=== PATIENT | female | born 1965 | race African-American/Black ===

== ENCOUNTER 2017-10-21 15:27 | Emergency (ER) | payer MEDICAID ==
[~2017-10-21] VITALS: Ht 160 cm; Wt 45.4 kg
--- NOTE | 2017-10-21 15:48 | Emergency Room Report ---
History of Present Illness General Chief Complaint: General Complaint Source: Patient Present Illness HPI 51-year-old female patient presents ER complaining of boil on right inguinal region. Patient reports as well as been there for a couple of weeks. Patient reports that she is a history of boils, reports last boil was in the same area one year ago. Reports was treated with I and D and antibiotics at that time. Patient reports that she called her physician and was told to come to the ER. Patient reports that she has not received any treatment for this point. Patient denies fever, chest pain, shortness of breath. Patient reports pain with ambulation because in crease between leg and pelvic region. Patient denies dysuria, hematuria. She denies vaginal discharge. Allergies: Coded Allergies: No Known Allergies (Unverified , 10/21/17) Patient History Past Medical History: see triage record Reviewed Nursing Documentation: PMH: Agreed; PSxH: Agreed Nursing Documentation-PMH Past Medical History: No History, Except For Hx Cardiac Problems: No Hx Hypertension: Yes Hx Pacemaker: No Hx Asthma: No Hx COPD: No Hx Diabetes: Yes - Type II Hx Cancer: No Hx Gastrointestinal Problems: No History Of Psychiatric Problem: No Hx Neurological Problems: No Hx Cerebrovascular Accident: No Hx Seizures: No Review of Systems All Other Systems: negative except mentioned in HPI Physical Exam Vital Signs Date Time Temp Pulse Resp B/P (MAP) Pulse Ox O2 Delivery O2 Flow Rate FiO2 10/21/17 15:35 98.0 94 16 96/65 99 Room Air 98.1 Sp02 EP Interpretation: reviewed, normal General Appearance: well appearing, no apparent distress, alert, GCS 15, non- toxic Head: normocephalic, atraumatic Neck: full range of motion Respiratory: lungs clear, normal breath sounds, no rhonchi, no respiratory distress, no accessory muscle use, no wheezing, speaking full sentences Cardiovascular #1: regular rate, rhythm, no edema Genitourinary: ext genitalia/vag normal Musculoskeletal: back normal, digits/nails normal, gait/station normal, normal range of motion, non-tender Neurologic: alert, oriented x3, responsive, motor strength/tone normal, sensory intact Psychiatric: mood/affect normal Skin: other - 2-3 cm abscess, right inguinal region, fluctuant, TTP, no pus, no drainage, does not come to a point Procedures Incision and Drainage Incision and Drainage : Consent: Verbal Site: right inguinal region Blade Size: 11 I & D Procedure: betadine prep, sterile drapes applied, sterile dressing applied Wound Location: other - right inguinal region Wound's Depth, Shape: superficial Wound Length (cm): 1 Wound Explored: contaminated Irrigated w/ Saline (ccs): 10 Anesthesia: 1% Lidocaine Volume Anesthetic (ccs): 2 Splint Applied?: No Sling Applied?: No Patient Tolerated: Well Complications: None Medical Decision Making PA Attestation Dr. Diaz is my supervising Physician whom patient management has been discussed with. Diagnostic Impression: Primary Impression: Abscess ER Course Pt. presents to the ED c/o abscess Ddx considered but are not limited to rash, cellulitis, abscess, sebaceous cyst , carbuncle, folliculitis. Does not require imaging at this time. Vital signs: are WNL, pt. is afebrile Ordered Lidocaine and pain medication. ED INTERVENTIONS: Area of incision and field block of abscess performed with lidocaine. I&D of abscess performed. Wound explored, pus expressed. No wick placed. Sterile dressing applied to wound following procedure. Procedure was chaperoned by female nurse. Patient tolerated procedure well. Patient reports feeling better following procedure. instructed patient on care. Take Tylenol for pain symptoms. Wound check with primary care provider in 2-3 days. DISCHARGE: -Rx provided for Keflex -Rx provided for Bactrim -Rx provided for Tylenol At this time pt. is stable for d/c to home. Patient is resting comfortably, in no acute distress, nontoxic appearing. Will provide printed patient care instructions and any necessary prescriptions. Care plan and follow up instructions have been discussed with the patient prior to discharge. Patient instructed to follow-up with primary care provider in 2 - 3 days for wound recheck. Patient questions asked and answered. Patient reports understanding and agreement to treatment plan. ER precautions given. Patient instructed to return to ER immediately for any new or worsening of symptoms including but not limited to fever, worsening of pain symptoms, worsening of erythema, red streaking. - Please note that this Emergency Department Report was dictated using [employer] die repair manager technology software, occasionally this can lead to erroneous entry secondary to interpretation by the dictation equipment. Last Vital Signs Date Time Temp Pulse Resp B/P (MAP) Pulse Ox O2 Delivery O2 Flow Rate FiO2 5/5/18 15:35 98.0 94 16 96/65 99 Room Air 98.1 Disposition: HOME, SELF-CARE Condition: Stable Scripts Trimethoprim/Sulfamethoxazole 160/800* (BACTRIM DS TABLET*) 1 Each Tablet 1 TAB ORAL TWICE A DAY for 7 Days, #14 TAB Prov: Juanjo Calles 10/21/17 Cephalexin* (KEFLEX*) 500 Mg Capsule 500 MG ORAL EVERY 12 HOURS, #14 CAP 0 Refills Prov: Juanjo Calles 10/21/17 Acetaminophen* (TYLENOL EXTRA STRENGTH*) 500 Mg Tablet 500 MG ORAL Q8H PRN for Prn Headache/Temp > 101, #30 TAB 0 Refills Prov: Juanjo Calles 10/21/17 Patient Instructions: Abscess, [id number] Additional Instructions: Followup with primary care provider in 2-3 days for wound check and removal of gauze, return to ER if unable to be seen. Take medications as directed. Take full course of abx. Keep wound clean and dry. Patient questions asked and answered. ER precautions given, patient instructed to return to ER immediately for any new or worsening of symptoms including but not limited to intractable vomiting, worsening of pain or rash, red streaking, chest pain, SOB. Juanjo Calles October 21, 2017 15:48
[2017-10-21 16:20] VITALS: BP 96/65
[2017-10-21] MEDS ORDERED: Lidocaine 1% Plain 30 ml INJ ONE (16:45)
[2017-10-21] MEDS ORDERED: Ketorolac 30mg Inj IM ONE (16:45)
[2017-10-21 17:35] VITALS: BP 96/65
[2017-10-21] MEDS ORDERED: BACTRIM DS TAB1 EAC1 ORAL (17:38)
[2017-10-21] MEDS ORDERED: TYLENOL EXTRA500 MG ORAL (17:38)
[2017-10-21] MEDS ORDERED: CEPHALEXIN500 MG ORAL (17:38)
== END 2017-10-21 17:44 | disposition home or self-care (01) ==
LOC: EMR 16:00
DX: L02.214 Cutaneous abscess of groin (principal); E11.9 Type 2 diabetes mellitus without complications; I10 Essential (primary) hypertension
CPT/HCPCS: 10060; 96372; 99284; J1885; J2001

== ENCOUNTER 2017-10-23 19:16 | Emergency (ER) | payer MEDICAID ==
[~2017-10-23] VITALS: Ht 157.5 cm; Wt 39.9 kg
[~2017-10-23 19:16] MED LIST: BACTRIM DS TAB1 EAC1 ORAL; CEPHALEXIN500 MG ORAL; TYLENOL EXTRA500 MG ORAL
[2017-10-23] MEDS ORDERED: CELLCEPT500 MG ORAL (19:24)
[2017-10-23] MEDS ORDERED: PREDNISONE10 MG ORAL (19:24)
[2017-10-23] MEDS ORDERED: MAGNESIUM100 MG PO (19:24)
[2017-10-23] MEDS ORDERED: CARDIZEM60 MG ORAL (19:24)
[2017-10-23 19:38] VITALS: BP 98/71
--- NOTE | 2017-10-23 19:47 | Emergency Room Report ---
History of Present Illness General Chief Complaint: Wound Recheck/Suture Removal Source: EMS Present Illness HPI 51-year-old female presents to the ER for recheck on her abscess. Patient states that she had I&D 2 days ago that she's been taking antibiotics with improvement of symptoms. Patient states she has no for potential place at this time. Allergies: Coded Allergies: No Known Allergies (Unverified , 10/21/17) Patient History Past Medical History: see triage record Past Surgical History: none Pertinent Family History: none Now: No Reviewed Nursing Documentation: PMH: Agreed; PSxH: Agreed Nursing Documentation-PMH Hx Cardiac Problems: No Hx Hypertension: Yes Hx Pacemaker: No Hx Asthma: No Hx COPD: No Hx Diabetes: Yes - Type II Hx Cancer: No Hx Gastrointestinal Problems: No Hx Neurological Problems: No Hx Cerebrovascular Accident: No Hx Seizures: No Review of Systems All Other Systems: negative except mentioned in HPI Physical Exam Vital Signs Date Time Temp Pulse Resp B/P (MAP) Pulse Ox O2 Delivery O2 Flow Rate FiO2 10/23/17 19:18 98.0 94 14 98/71 100 Room Air 98.1 Sp02 EP Interpretation: reviewed, normal General Appearance: no apparent distress, alert, GCS 15, non-toxic Head: normocephalic, atraumatic Eyes: bilateral eye normal inspection, bilateral eye PERRL ENT: normal ENT inspection Neck: normal inspection Respiratory: chest non-tender, lungs clear, normal breath sounds, speaking full sentences Cardiovascular #1: regular rate, rhythm, no edema Neurologic: alert, oriented x3, responsive, motor strength/tone normal, sensory intact, speech normal Skin: normal color, no rash, warm/dry, well hydrated, other - well healing abscess. minimal induration. No drainage Lymphatic: no adenopathy Medical Decision Making PA Attestation Dr. Carlisle my supervising physician with whom patient management has been discussed with. Diagnostic Impression: Primary Impression: Encounter for wound re-check Additional Impression: Abscess ER Course 51 y/o female here for recheck of abscess. Healing well. extensive differential diagnosis considered. Patient is stable for discharge for recheck of abscess within 2-3 days. Last Vital Signs Date Time Temp Pulse Resp B/P (MAP) Pulse Ox O2 Delivery O2 Flow Rate FiO2 10/23/17 19:18 98.0 94 14 98/71 100 Room Air 98.1 Status: unchanged Disposition: HOME, SELF-CARE Condition: Stable Patient Instructions: Wound Check Additional Instructions: Continue medication as directed. Follow up for recheck of wound within 3-5 days. Keep wound clean and dry. Avoid sun exposure to minimize scarring. Patient advised that they can take a shower or bath, but be sure to pat the area dry with a towel afterward. Patient should come back sooner if they experience any red areas that get bigger, more swollen, have pus draining from wound, or if the site becomes more painful. CLEMENT JOSÉ October 23, 2017 19:47
[2017-10-23 19:58] VITALS: BP 98/71
== END 2017-10-23 19:58 | disposition home or self-care (01) ==
LOC: EMR 19:36
DX: L02.415 Cutaneous abscess of right lower limb (principal); E11.9 Type 2 diabetes mellitus without complications; I10 Essential (primary) hypertension
CPT/HCPCS: 99281

== ENCOUNTER 2019-08-19 09:21 | Emergency (ER) | payer MEDICAID ==
[~2019-08-19] VITALS: Ht 154.9 cm; Wt 44.5 kg
[~2019-08-19 09:21] MED LIST changes: +CARDIZEM60 MG ORAL; +CELLCEPT500 MG ORAL; +MAGNESIUM100 MG PO; +PREDNISONE10 MG ORAL
[2019-08-19 09:28] VITALS: BP 164/103
--- NOTE | 2019-08-19 09:38 | NUR ---
ED Nurse Note: Pt walked in due to generalized blisters and lesions all over her face and body which started since monday. Pt states some rashes are itchy and some popped out due to scratching. Also c/o diarrhea x 2 days. AAO x4, ambulatory.
--- NOTE | 2019-08-19 09:56 | Emergency Room Report ---
History of Present Illness General Chief Complaint: Skin Rash/Abscess Source: Patient Present Illness HPI Patient post renal transplant. She is here with a rash that she thinks is chickenpox. She has had mild sore throat and some nonproductive cough and slight shortness of breath. She is taking immune suppression's and also prednisone. She also believes that she might have a urinary tract infection has decreased urine output. The patient's been having some diarrhea also. She denies any blood or mucus. She is felt feverish but not documented temperature. The rash is itching. She is concerned about getting a work note. The transplant is nontender. She started evaluation for thyroid goiter but never followed up. Patient is diabetic on insulin. She takes 1 dose a day. No chest pain, palpitations, nausea, vomiting, abdominal pain, shortness of breath, joint pain, depression, visual changes, dizziness, headache. Allergies: Coded Allergies: No Known Allergies (Unverified , 10/21/17) Patient History Past Medical History: see triage record Past Surgical History: other - Renal transplant Social History: Reports: smoking Social History Narrative Works in a [employer] department Reviewed Nursing Documentation: PMH: Agreed; PSxH: Agreed Nursing Documentation-PMH Past Medical History: No History, Except For Hx Hypertension: Yes Hx Pacemaker: No Hx Asthma: No Hx COPD: No Hx Diabetes: Yes - TYPE 2 Hx Cancer: No Hx Gastrointestinal Problems: No Hx Neurological Problems: No Hx Cerebrovascular Accident: No Hx Seizures: No Review of Systems All Other Systems: negative except mentioned in HPI Physical Exam Vital Signs Date Time Temp Pulse Resp B/P (MAP) Pulse Ox O2 Delivery O2 Flow Rate FiO2 08/19/19 09:28 98.4 77 16 164/103 (123) 100 Room Air Sp02 EP Interpretation: reviewed, normal General Appearance: no apparent distress, GCS 15, thin Head: normocephalic Eyes: bilateral eye normal inspection, bilateral eye PERRL, bilateral eye EOMI ENT: moist mucus membranes, pharyngeal erythema Neck: full range of motion, supple, thyromegaly - Asymmetrical more on right side with enlargement and nodularity Respiratory: chest non-tender, lungs clear, normal breath sounds Cardiovascular #1: regular rate, rhythm, no edema Cardiovascular #2: 2+ radial (R) Gastrointestinal: normal inspection, normal bowel sounds, non tender, non- distended, scaphoid Genitourinary: no CVA tenderness Musculoskeletal: back normal, normal range of motion, no calf tenderness, gait/ station normal Neurologic: alert, oriented x3, grossly normal Psychiatric: anxious Skin: warm/dry, other - Vesicles on erythematous base with some an eschar Medical Decision Making Diagnostic Impression: Primary Impression: Chicken pox Qualified Codes: B01.9 - Varicella without complication Additional Impressions: Hyperglycemia Dehydration Diarrhea Qualified Codes: R19.7 - Diarrhea, unspecified Goiter ER Course Renal transplant patient presents with rash, sore throat, diarrhea. As patient is on immune suppression differential is fairly broad. The rash is classic for chickenpox. However evaluation for electrolyte and renal dysfunction/ transplant rejection. Patient also has a greater and is fairly hyperactive. Evaluation of thyroid function tests also. Patient presents with complexity and comorbidities. Treatment with IV hydration. Labs with normal white count, elevated hemoglobin and hematocrit. Labs remarkable for elevated blood glucose and BUN. TSH and T3 are low. Patient does not want glucose or other abnormalities addressed. Discussed findings with patient and the need for outpatient follow-up. Lab results given to patient and abnormal results circled. She is to take this to her doctor as soon as possible. Patient stable for outpatient observation and treatment although she declines full medical treatment in the emergency department. Risk of declining these suggestions explained to patient. In particular further renal dysfunction. Patient states she is following up with her own doctor. Laboratory Tests Test 08/19/19 10:10 08/19/19 10:59 White Blood Count 4.6 K/UL (4.8-10.8) L Red Blood Count 5.41 M/UL (4.20-5.40) H Hemoglobin 16.2 G/DL (12.0-16.0) H Hematocrit 48.7 % (37.0-47.0) H Mean Corpuscular Volume 90 FL (80-99) Mean Corpuscular Hemoglobin 30.0 PG (27.0-31.0) Mean Corpuscular Hemoglobin Concent 33.4 G/DL (32.0-36.0) Red Cell Distribution Width 11.7 % (11.6-14.8) Platelet Count 51 K/UL (150-450) L Mean Platelet Volume 16.1 FL (6.5-10.1) H Neutrophils (%) (Auto) % (45.0-75.0) Lymphocytes (%) (Auto) % (20.0-45.0) Monocytes (%) (Auto) % (1.0-10.0) Eosinophils (%) (Auto) % (0.0-3.0) Basophils (%) (Auto) % (0.0-2.0) Differential Total Cells Counted 100 Neutrophils % (Manual) 84 % (45-75) H Lymphocytes % (Manual) 11 % (20-45) L Monocytes % (Manual) 5 % (1-10) Eosinophils % (Manual) 0 % (0-3) Basophils % (Manual) 0 % (0-2) Band Neutrophils 0 % (0-8) Platelet Estimate Decreased L Platelet Morphology Normal Red Blood Cell Morphology Normal Prothrombin Time 9.8 SEC (9.30-11.50) Prothrombin Time INR 0.9 (0.9-1.1) Activated Partial Thromboplast Time 29 SEC (23-33) Sodium Level 139 MMOL/L (136-145) Potassium Level 4.4 MMOL/L (3.5-5.1) Chloride Level 102 MMOL/L (98-107) Carbon Dioxide Level 23 MMOL/L (21-32) Anion Gap 14 mmol/L (5-15) Blood Urea Nitrogen 20 mg/dL (7-18) H Creatinine 1.1 MG/DL (0.55-1.30) Estimate Glomerular Filtration Rate > 60 mL/min (>60) Glucose Level 304 MG/DL (74-106) H Calcium Level 9.6 MG/DL (8.5-10.1) Total Bilirubin 0.5 MG/DL (0.2-1.0) Aspartate Amino Transferase (AST) 29 U/L (15-37) Alanine Aminotransferase (ALT) 30 U/L (12-78) Alkaline Phosphatase 153 U/L (46-116) H Total Protein 7.6 G/DL (6.4-8.2) Albumin 3.9 G/DL (3.4-5.0) Globulin 3.7 g/dL Albumin/Globulin Ratio 1.1 (1.0-2.7) Lipase 246 U/L (73-393) Thyroid Stimulating Hormone (TSH) 0.288 uiU/mL (0.358-3.740) Free Thyroxine 1.06 NG/DL (0.76-1.46) Free Triiodothyronine 2.1 pg/mL (2.3-4.2) L Urine Color Yellow Urine Appearance Clear Urine pH 5 (4.5-8.0) Urine Specific [place] 1.015 (1.005-1.035) Urine Protein 1+ (NEGATIVE) H Urine Glucose (UA) 3+ (NEGATIVE) H Urine Ketones 1+ (NEGATIVE) H Urine Blood Negative (NEGATIVE) Urine Nitrite Negative (NEGATIVE) Urine Bilirubin Negative (NEGATIVE) Urine Urobilinogen Normal MG/DL (0.0-1.0) Urine Leukocyte Esterase Negative (NEGATIVE) Urine RBC 0-2 /HPF (0 - 2) Urine WBC 0-2 /HPF (0 - 2) Urine Squamous Epithelial Cells Few /LPF (NONE/OCC) Urine Bacteria Few /HPF (NONE) Last Vital Signs Date Time Temp Pulse Resp B/P (MAP) Pulse Ox O2 Delivery O2 Flow Rate FiO2 08/19/19 13:31 98.0 82 17 152/90 96 Room Air Status: improved Disposition: HOME, SELF-CARE Condition: Improved Scripts Diphenhydramine HCl (Benadryl) 25 Mg Capsule 25 MG PO Q6HR, #14 CAP Prov: Sumit Metcalf MD 08/19/19 Bacitracin (Bacitracin) 28.4 Gm Oint...g. 1 APPLIC TOPIC BID, #20 GM Prov: Sumit Metcalf MD 08/19/19 Acetaminophen (Tylenol) 325 Mg Tablet 650 MG ORAL Q6H PRN for Prn Pain/Headache/Temp > 101, #20 TAB 0 Refills Prov: Sumit Mectalf MD 08/19/19 Sumit Metcalf MD Aug 19, 2019 09:56
[2019-08-19 10:26] LABS: ANION GAP 14 mmol/L (5-15); BLOOD UREA NITROGEN 20 mg/dL (7-18); CALCIUM 9.6 MG/DL (8.5-10.1); CARBON DIOXIDE 23 MMOL/L (21-32); CHLORIDE 102 MMOL/L (98-107); CREATININE 1.1 MG/DL (0.55-1.30); POTASSIUM 4.4 MMOL/L (3.5-5.1); SODIUM 139 MMOL/L (136-145)
[2019-08-19 10:27] LABS: INR 0.9 (0.9-1.1)
[2019-08-19 10:29] LABS: HEMATOCRIT 48.7 % (37.0-47.0); HEMOGLOBIN 16.2 G/DL (12.0-16.0); MEAN CORPUSCULAR VOLUME 90 FL (80-99); PLATELET COUNT 51 K/UL (150-450); RED BLOOD COUNT 5.41 M/UL (4.20-5.40); RED CELL DISTRIBUTION WIDTH 11.7 % (11.6-14.8); WHITE BLOOD COUNT 4.6 K/UL (4.8-10.8)
[2019-08-19 10:41] LABS: ALANINE AMINOTRANSFERASE 30 U/L (12-78); ALBUMIN 3.9 G/DL (3.4-5.0); ALBUMIN/GLOBULIN RATIO 1.1 (1.0-2.7); ALKALINE PHOSPHATASE 153 U/L (46-116); ASPARTATE AMINO TRANSFERASE 29 U/L (15-37); BILIRUBIN,TOTAL 0.5 MG/DL (0.2-1.0)
--- NOTE | 2019-08-19 11:00 | NUR ---
ED Nurse Note: Collected urine then sent.
[2019-08-19 11:12] LABS: APPEARANCE,URINE CLEAR; BILIRUBIN, URINE NEGATIVE (NEGATIVE); GLUCOSE, URINE (UA) 3+ (NEGATIVE); KETONES,URINE 1+ (NEGATIVE); LEUKOCYTE ESTERASE ,URINE NEGATIVE (NEGATIVE); NITRITE,URINE NEGATIVE (NEGATIVE); PH,URINE 5 (4.5-8.0); PROTEIN,URINE 1+ (NEGATIVE); UROBILINOGEN,URINE NORMAL MG/DL (0.0-1.0)
[2019-08-19 11:23] LABS: COLOR,URINE YELLOW
[2019-08-19] MEDS ORDERED: BACITRACIN15 GM TOPIC ×2 (13:24)
[2019-08-19] MEDS ORDERED: BENADRYL25 M3 PO ×2 (13:24)
[2019-08-19] MEDS ORDERED: TYLENOL325 MG ORAL ×2 (13:24)
[2019-08-19 13:31] VITALS: BP 152/90
--- NOTE | 2019-08-19 13:31 | NUR ---
ER DISCHARGE NOTE: Patient is cleared to be discharged per ERMD, pt is aox4, on room air, with stable vital signs. pt was given dc and prescription instructions, pt was able to verbalize understanding, pt id band and iv site removed without complications. pt is able to ambulate with steady gait. pt took all belongings.
== END 2019-08-19 13:31 | disposition home or self-care (01) ==
LOC: EMR 10:20
DX: B01.9 Varicella without complication (principal); R19.7 Diarrhea, unspecified; E86.0 Dehydration; E04.9 Nontoxic goiter, unspecified; E11.65 Type 2 diabetes mellitus with hyperglycemia; I10 Essential (primary) hypertension; F17.200 Nicotine dependence, unspecified, uncomplicated
CPT/HCPCS: 36415; 80053; 81003; 83690; 84439; 84443; 84481; 85007; 85025; 85610; 85730; 96360; J7030; Z7502; 99284

== ENCOUNTER 2019-08-24 14:06 | Inpatient (IN) | payer MEDICAID ==
[~2019-08-24] VITALS: Ht 154.9 cm; Wt 45.4 kg
[~2019-08-24 14:06] MED LIST changes: +BACITRACIN15 GM TOPIC; +BENADRYL25 M3 PO; +TYLENOL325 MG ORAL
[2019-08-24 14:07] VITALS: BP 120/75
--- NOTE | 2019-08-24 14:15 | NUR ---
ED Nurse Note: patient walked into ED c/o chickenpox exacerbation for 10 days. patient was seen here [place] [facility] [place] for same symptoms. patient is alert awake x4 ambulatory steady gait, breathing unlabored and even, speaking in full sentences.
--- NOTE | 2019-08-24 14:20 | Emergency Room Report ---
History of Present Illness General Chief Complaint: Skin Rash/Abscess Source: Patient, Medical Record Present Illness HPI Patient presents with worsening rash. She was seen here August 18 and diagnosed with chickenpox. She denies any fevers or chills. She has lesions on her palms and feet. She has pain when she is walking. She denies any sore throat, shortness of breath, chest pain or cough. There is no nausea, vomiting or diarrhea. Her kidney transplant is nontender. She denies dysuria. She now reports that she received a varicella vaccination on July 15. She also received MMR during that time. When she was seen on August 18 her blood sugar was elevated. She refused further evaluation or treatment. I suggested that she be admitted at that time but she refused. Patient is a type 2 insulin-dependent diabetic. Allergies: Coded Allergies: No Known Allergies (Unverified , 10/21/17) Patient History Past Medical History: see triage record Past Surgical History: other - Renal transplant Social History: Reports: smoking, drug use - See tox screen; Denies: alcohol use Social History Narrative Works for [email or web address] Last Menstrual Period: N/A Now: No Reviewed Nursing Documentation: PMH: Agreed; PSxH: Agreed Nursing Documentation-PMH Hx Hypertension: Yes Hx Pacemaker: No Hx Asthma: No Hx COPD: No Hx Diabetes: Yes - TYPE 2 Hx Cancer: No Hx Gastrointestinal Problems: No Hx Neurological Problems: No Hx Cerebrovascular Accident: No Hx Seizures: No Review of Systems All Other Systems: negative except mentioned in HPI Physical Exam Vital Signs Date Time Temp Pulse Resp B/P (MAP) Pulse Ox O2 Delivery O2 Flow Rate FiO2 08/24/19 14:07 98.1 95 18 120/75 (90) 98 Room Air Sp02 EP Interpretation: reviewed, normal General Appearance: well appearing, no apparent distress, GCS 15, non-toxic Head: normocephalic, atraumatic Eyes: right eye Scleral Injection - With beige discharge; bilateral eye normal inspection, bilateral eye PERRL, bilateral eye EOMI ENT: moist mucus membranes Neck: supple, no meningismus, thyromegaly - Right sided with nodularity nontender Respiratory: lungs clear, normal breath sounds Cardiovascular #1: regular rate, rhythm, no edema Cardiovascular #2: 2+ radial (R) Gastrointestinal: normal inspection, normal bowel sounds, non tender, non- distended, other - Transplanted kidney nontender Genitourinary: no CVA tenderness Musculoskeletal: back normal, normal range of motion, gait/station normal Neurologic: alert, oriented x3, grossly normal Psychiatric: mood/affect normal Skin: warm/dry, other - Worsening of rash with blisters on erythematous base Procedures Critical Care Time Critical Care Time Total Critical Care Time: 60 min bedside evaluation and treatment excludes procedures (EKG). Reason for critical care: Disseminated varicella in renal transplant patient, abnormal EKG, consultation with transplant team and discussion with [facility] hospitalist Possible complications: hypotension, hypertension, UT, shock, arrhythmias, metabolic acidosis, end organ damage, respiratory failure. Interventions: Fluid bolus for hyperglycemia, consultation with transplant team , consultation with [facility] hospitalist, IV acyclovir, cardiac monitoring, multiple discussions with patient and family Course: Patient presents with worsened lesions of chickenpox. Elevated blood sugar. Full evaluation undertaken. Consultation with renal transplant team at [facility] after multiple calls. Patient reevaluation with some improvement with IV hydration and improved glucose. In addition improvement with itching and discomfort. EKG abnormalities addressed. Patient placed on monitor. Patient insisting on going outside and smoking. Patient threatening to leave AGAINST MEDICAL ADVICE. Discussed the need for IV acyclovir. She states she is not concerned about her heart or glucose. Discussed risks with patient and she agrees to stay in the hospital. Discussed with son. Discussed with admitting physician. Consultations: nursing staff, EMS, family, [facility] renal transplant team, [facility] hospitalist, admitting physician Performed by: Dr. Metcalf Tolerated well condition = serious Medical Decision Making Diagnostic Impression: Primary Impression: Chicken pox Qualified Codes: B01.89 - Other varicella complications Additional Impressions: Status post kidney transplant Mobitz type II block Thrombocytopenia Hyperglycemia Dehydration Goiter Cocaine abuse ER Course Renal transplant patient returns with worsening varicella rash. Differential includes vaccination reaction, diffuse varicella in immune compromised patient, hyperglycemia, dehydration, other electrolyte abnormalities. The patient is nontoxic at this time. Accu-Chek is ordered along with Tylenol and Benadryl. No evidence of encephalitis. EKG with T inversions septally. Consider Wellen's. Mobitz 2 block. Patient will need to go to telemetry and most likely will need to have a pacemaker placed. Accu-Chek is 318. This requires work-up. Also her transplant team at [facility] will be contacted for advice. Multiple calls. [facility] renal transplant fellow unavailable. Contacting renal transplant attending. White count normal. Platelets low. Initial troponin negative. Elevated glucose without acidosis. Discussed with Dr. Barriga [facility] transplant attending. She recommends acyclovir. She wants the patient transferred. Attempting to transfer patient. Multiple calls. Dr. Barriga reports the patient last was seen 4 years ago. At that time she had a history of noncompliance with controlling her diabetes. Glucose 227 after bolus. Discussed with Dr. Borjas who requests repeat EKG. EKG improved. However ST biphasic continues. No more evidence of block. Patient refusing to stay in hospital. Discussed with patient need for continued acyclovir. She states she is not concerned about her diabetes and heart. She is refusing considering pacemaker. Convince patient of need for continued acyclovir IV at this time. Patient insisting on going outside to smoke. Agrees to stay in the hospital. I feel patient is stable for transfer however Dr. Borjas insisting on cardiology clearance prior to transfer. Discussed with Dr. Rain including the need for cardiology consultation. Patient admitted to stepdown unit. As patient had erratic behavior urine toxicology ordered after admission. This is positive for cocaine and THC. Laboratory Tests Test 08/24/19 14:50 08/24/19 16:40 White Blood Count 3.5 K/UL (4.8-10.8) L Red Blood Count 5.35 M/UL (4.20-5.40) Hemoglobin 16.0 G/DL (12.0-16.0) Hematocrit 48.0 % (37.0-47.0) H Mean Corpuscular Volume 90 FL (80-99) Mean Corpuscular Hemoglobin 29.8 PG (27.0-31.0) Mean Corpuscular Hemoglobin Concent 33.2 G/DL (32.0-36.0) Red Cell Distribution Width 12.1 % (11.6-14.8) Platelet Count 26 K/UL (150-450) L Mean Platelet Volume FL (6.5-10.1) Neutrophils (%) (Auto) % (45.0-75.0) Lymphocytes (%) (Auto) % (20.0-45.0) Monocytes (%) (Auto) % (1.0-10.0) Eosinophils (%) (Auto) % (0.0-3.0) Basophils (%) (Auto) % (0.0-2.0) Differential Total Cells Counted 100 Neutrophils % (Manual) 76 % (45-75) H Lymphocytes % (Manual) 6 % (20-45) L Monocytes % (Manual) 17 % (1-10) H Eosinophils % (Manual) 1 % (0-3) Basophils % (Manual) 0 % (0-2) Band Neutrophils 0 % (0-8) Platelet Estimate Decreased L Platelet Morphology Normal Prothrombin Time 10.0 SEC (9.30-11.50) Prothrombin Time INR 0.9 (0.9-1.1) Activated Partial Thromboplast Time 32 SEC (23-33) Sodium Level 134 MMOL/L (136-145) L Potassium Level 3.6 MMOL/L (3.5-5.1) Chloride Level 98 MMOL/L (98-107) Carbon Dioxide Level 26 MMOL/L (21-32) Anion Gap 10 mmol/L (5-15) Blood Urea Nitrogen 15 mg/dL (7-18) Creatinine 1.1 MG/DL (0.55-1.30) Estimate Glomerular Filtration Rate > 60 mL/min (>60) Glucose Level 314 MG/DL (74-106) H Lactic Acid Level 0.80 mmol/L (0.4-2.0) Calcium Level 9.3 MG/DL (8.5-10.1) Phosphorus Level 3.2 MG/DL (2.5-4.9) Magnesium Level 1.4 MG/DL (1.8-2.4) L Total Bilirubin 0.5 MG/DL (0.2-1.0) Aspartate Amino Transferase (AST) 46 U/L (15-37) H Alanine Aminotransferase (ALT) 56 U/L (12-78) Alkaline Phosphatase 128 U/L (46-116) H Total Creatine Kinase 48 U/L (26-308) Troponin I 0.020 ng/mL (0.000-0.056) Pro-B-Type Natriuretic Peptide 1076 pg/mL (0-125) H Total Protein 7.2 G/DL (6.4-8.2) Albumin 3.4 G/DL (3.4-5.0) Globulin 3.8 g/dL Albumin/Globulin Ratio 0.9 (1.0-2.7) L Urine Color Yellow Urine Appearance Clear Urine pH 5 (4.5-8.0) Urine Specific [place] 1.015 (1.005-1.035) Urine Protein 2+ (NEGATIVE) H Urine Glucose (UA) 4+ (NEGATIVE) H Urine Ketones Negative (NEGATIVE) Urine Blood 1+ (NEGATIVE) H Urine Nitrite Negative (NEGATIVE) Urine Bilirubin Negative (NEGATIVE) Urine Urobilinogen 1 MG/DL (0.0-1.0) H Urine Leukocyte Esterase 1+ (NEGATIVE) H Urine RBC 2-4 /HPF (0 - 2) H Urine WBC 0-2 /HPF (0 - 2) Urine Squamous Epithelial Cells Occasional /LPF Urine Bacteria Occasional /HPF (NONE) Urine Opiates Screen Negative (NEGATIVE) Urine Barbiturates Screen Negative (NEGATIVE) Phencyclidine (PCP) Screen Negative (NEGATIVE) Urine Amphetamines Screen Negative (NEGATIVE) Urine Benzodiazepines Screen Negative (NEGATIVE) Urine Cocaine Screen Positive (NEGATIVE) H Urine Marijuana (THC) Screen Positive (NEGATIVE) H EKG Diagnostic Results Rate: normal Rhythm: NSR ST Segments: no acute changes - T inversions laterally - Mobitz 2 block Rhythm Strip Diag. Results EP Interpretation: yes Rhythm: NSR, no PVC's, no ectopy Chest X-Ray Diagnostic Results Chest X-Ray Diagnostic Results : Chest X-Ray Ordered: Yes # of Views/Limited/Complete: 1 View Indication: Other EP Interpretation: Yes Interpretation: no consolidation, no effusion, no pneumothorax Impression: No acute disease Electronically Signed by: Electronically signed by Sumit Metcalf MD Last Vital Signs Date Time Temp Pulse Resp B/P (MAP) Pulse Ox O2 Delivery O2 Flow Rate FiO2 08/25/19 00:00 97 08/24/19 22:03 Room Air 08/24/19 21:20 98.1 18 120/75 98 Status: improved Disposition: ADMITTED INPATIENT Condition: Serious Sumit Metcalf MD Aug 24, 2019 14:20
[2019-08-24] MEDS ORDERED: DiphenhydrAMINE 25mg Tab ORAL ONE (14:30)
[2019-08-24 15:18] LABS: ANION GAP 10 mmol/L (5-15); BLOOD UREA NITROGEN 15 mg/dL (7-18); CALCIUM 9.3 MG/DL (8.5-10.1); CARBON DIOXIDE 26 MMOL/L (21-32); CHLORIDE 98 MMOL/L (98-107); CREATININE 1.1 MG/DL (0.55-1.30); MEAN CORPUSCULAR VOLUME 90 FL (80-99); PLATELET COUNT 26 K/UL (150-450); POTASSIUM 3.6 MMOL/L (3.5-5.1); RED BLOOD COUNT 5.35 M/UL (4.20-5.40); RED CELL DISTRIBUTION WIDTH 12.1 % (11.6-14.8); SODIUM 134 MMOL/L (136-145); WHITE BLOOD COUNT 3.5 K/UL (4.8-10.8)
[2019-08-24 15:21] LABS: INR 0.9 (0.9-1.1)
--- NOTE | 2019-08-24 15:21 | NUR ---
ED Nurse Note: unable to collect urine sample at this time. patient offered to use bedside commode due to contack isolation, patient refused despite RN education stating "I'm not that old to use bedside commode. I'm going to use toilet." CN notified.
[2019-08-24 15:30] LABS: ALANINE AMINOTRANSFERASE 56 U/L (12-78); ALBUMIN 3.4 G/DL (3.4-5.0); ALBUMIN/GLOBULIN RATIO 0.9 (1.0-2.7); ALKALINE PHOSPHATASE 128 U/L (46-116); ASPARTATE AMINO TRANSFERASE 46 U/L (15-37); BILIRUBIN,TOTAL 0.5 MG/DL (0.2-1.0); CREATINE KINASE 48 U/L (26-308); PHOSPHORUS 3.2 MG/DL (2.5-4.9)
--- NOTE | 2019-08-24 15:56 | Diagnostic Imaging Report ---
EXAM: XR Chest, 1 View CLINICAL HISTORY: CP TECHNIQUE: Frontal view of the chest. COMPARISON: No relevant prior studies available. FINDINGS: Lungs: No consolidation. Pleural space: Unremarkable. No pneumothorax. Heart: Unremarkable. No cardiomegaly. Mediastinum: Unremarkable. Bones/joints: No acute fracture. IMPRESSION: No acute cardiopulmonary disease.
--- NOTE | 2019-08-24 16:00 | NUR ---
PER DR DUCKWORTH PATIENT HAS TO BE TRANSFERD TO [facility]. TRANSFER CENTER AT [facility] HAS BEEN CALLED WILL CALL BACK
[2019-08-24] MEDS ORDERED: Acyclovir 500 MG in D5W 110 ML IV ONE (16:30)
[2019-08-24 17:01] LABS: APPEARANCE,URINE CLEAR; BILIRUBIN, URINE NEGATIVE (NEGATIVE); GLUCOSE, URINE (UA) 4+ (NEGATIVE); KETONES,URINE NEGATIVE (NEGATIVE); LEUKOCYTE ESTERASE ,URINE 1+ (NEGATIVE); NITRITE,URINE NEGATIVE (NEGATIVE); PH,URINE 5 (4.5-8.0); PROTEIN,URINE 2+ (NEGATIVE); UROBILINOGEN,URINE 1 MG/DL (0.0-1.0)
[2019-08-24 17:07] LABS: COLOR,URINE YELLOW
--- NOTE | 2019-08-24 19:04 | NUR ---
HAND-OFF: Report given to Diane MELENDEZ.
--- NOTE | 2019-08-24 19:06 | NUR ---
called from [facility]-speaking with .
[2019-08-24] MEDS ORDERED: Nitroglycerin 2% oint pkt TOPIC ONE (19:15)
--- NOTE | 2019-08-24 19:30 | NUR ---
ED Nurse Note: pt refusing nitro paste, ERMD notified
--- NOTE | 2019-08-24 19:42 | NUR ---
ED Nurse Note: pt continues to leave room and walk around, knowing that she is on contact precautions. will not take nurse and physicians recommendations to stay in room to minimize spread of infection to other patients. pt provided with all requests at bedside in order to reduce her need to leave her room. will continue to monitor
--- NOTE | 2019-08-24 20:30 | NUR ---
ED Nurse Note: report given to AL Tran
--- NOTE | 2019-08-24 20:48 | NUR ---
ED Nurse Note: pt not in room to be taken upstairs, security called to help locate pt, they understand to be on contact precautions with her
--- NOTE | 2019-08-24 20:51 | NUR ---
NURSE NOTES: Received report from AL Contreras. awaiting pt's arrival to the unit.
[2019-08-24] MEDS: Levemir Flexpen SUBQ SCH (22:45)
--- NOTE | 2019-08-24 22:58 | NUR ---
TRANSFER TO FLOOR: Patient transferred to as ordered, per DR. Metcalf. Report given to AL Tran belongings sent [facility] pt
--- NOTE | 2019-08-24 23:00 | NUR ---
NURSE NOTES: Pt report received from AL Contreras. Pt brought up via gurney to tele. Patient is awake and alert x4 ambulatory steady gait, but complains of pain when walking due to chickenpox on feet. Placed on contact precautions for chickenpox. Papules/red rash noted throughout entire body. All belongings checked at bedside, pt declined placing valuables in safe. Pt is on room air, breathing unlabored and even. Only complaints are related to pain due to body covered in papules and vesicles, eyes have yellow exudate and are reddened. Will contact MD for new orders. Pt oriented to room and unit protocol. Advised that pt cannot go out to smoke by herself (as she did when in ED). pt verbalized understanding but does not always follows rules.
[2019-08-25] MEDS ORDERED: HYDROcodone/Acetamin 5/325 tab ORAL PRN (01:30)
[2019-08-25] MEDS ORDERED: DiphenhydrAMINE 25mg Tab ORAL PRN (01:30)
[2019-08-25] MEDS ORDERED: Morphine Sulfate 2mg/ml Inj(IV/IM USE ONLY) IVP PRN (01:30)
[2019-08-25] MEDS ORDERED: Acyclovir 500 MG in D5W 110 ML IV SCH (04:00)
--- NOTE | 2019-08-25 04:44 | NUR ---
NURSE NOTES: Received drug toxicology screen and notified that pt tested positive for marijuana (THC) and cocaine. will inform MD. Also did EKG as ordered and it showed SR with PACs, ST and T wave abnormalities as well as supraventricular complexes, - consider anterolateral ischemia. Will inform MD.
[2019-08-25] MEDS: NovoLOG Insulin Flexpen SUBQ SCH ×4 (06:10→21:26)
[2019-08-25] MEDS ORDERED: NovoLOG Insulin Flexpen SUBQ SCH (06:30)
[2019-08-25 07:04] LABS: HEMATOCRIT 42.5 % (37.0-47.0); HEMOGLOBIN 14.8 G/DL (12.0-16.0); MEAN CORPUSCULAR VOLUME 87 FL (80-99); PLATELET COUNT 22 K/UL (150-450); RED CELL DISTRIBUTION WIDTH 10.9 % (11.6-14.8); WHITE BLOOD COUNT 3.7 K/UL (4.8-10.8)
[2019-08-25 07:32] LABS: ANION GAP 11 mmol/L (5-15); BLOOD UREA NITROGEN 7 mg/dL (7-18); CALCIUM 8.8 MG/DL (8.5-10.1); CARBON DIOXIDE 24 MMOL/L (21-32); CHLORIDE 101 MMOL/L (98-107); CHOLESTEROL 112 MG/DL (< 200); CREATININE 0.8 MG/DL (0.55-1.30); HDL CHOLESTEROL 62 MG/DL (40-60); POTASSIUM 3.6 MMOL/L (3.5-5.1); SODIUM 136 MMOL/L (136-145); TRIGLYCERIDES 96 MG/DL (30-150)
[2019-08-25 07:40] LABS: CREATINE KINASE 45 U/L (26-140)
--- NOTE | 2019-08-25 07:45 | NUR ---
HAND-OFF: Report given to AL Pena.
--- NOTE | 2019-08-25 07:48 | NUR ---
NURSE NOTES: Called and left Dr Rain a message that pt toxicology screen came back + for cocaine and THC. Also informed him regarding results of EKG, ST and T wave abnormalities, supraventricular complexes, consider anterolateral ischemia,
--- NOTE | 2019-08-25 07:48 | NUR ---
NURSE NOTES: pt in bed, food tray at bedside. Pt on knife grinder, multiple PAC's and tachycardia at times. EKG was done this morning with ST and Twave abnormalities: night nurse notified Dr. Rain about findings. Pt is not complaining about pain or SOB at this time. Bed is locked and in lowest position, call light within reach. Gave pt yellow socks to put on when she walks to the restroom, she states she will put them on later.
[2019-08-25] MEDS: Docusate 100mg cap ORAL SCH ×2 (09:00→21:00)
[2019-08-25] MEDS: Mycophenolate 250mg cap ORAL SCH ×2 (09:50→18:53)
--- NOTE | 2019-08-25 10:29 | Consultation ---
History of Present Illness General Date patient seen: Aug 25, 2019 Time patient seen: 19:26 Chief Complaint: Skin Rash/Abscess Present Illness HPI 53-year-old AAF with PMH of renal transplant 5 years ago, DM type II, who presented to the ED for worsening rash that began 6 days ago. Cardiology consulted for heart block. Patietn non compliant with medications. Patient on acyclovir for varicella rash. Allergies: Coded Allergies: No Known Allergies (Unverified , 10/21/17) Medication History Scheduled Bacitracin (Bacitracin), 1 APPLIC TOPIC BID Cephalexin* (Keflex*), 500 MG ORAL EVERY 12 HOURS Diltiazem Hcl* (Cardizem*), 180 MG ORAL DAILY, (Reported) Diphenhydramine HCl (Benadryl), 25 MG PO Q6HR Mycophenolate Mofetil (Cellcept), 1,000 MG ORAL EVERY 12 HOURS, (Reported) Prednisone* (Prednisone*), 5 MG ORAL DAILY, (Reported) Trimethoprim/Sulfamethoxazole 160/800* (Bactrim Ds Tablet*), 1 TAB ORAL TWICE A DAY Scheduled PRN Acetaminophen (Tylenol), 650 MG ORAL Q6H PRN for Prn Pain/Headache/Temp > 101 Acetaminophen* (Tylenol Extra Strength*), 500 MG ORAL Q8H PRN for Prn Headache/ Temp > 101 Miscellaneous Medications Magnesium Amino Acid Chelate (Magnesium), 100 MG PO, (Reported) Patient History Healthcare decision maker Resuscitation status Full Code Advanced Directive on File Review of Systems Constitutional: Reports: no symptoms Eye: Reports: no symptoms ENT: Reports: no symptoms Respiratory: Reports: no symptoms Cardiovascular: Reports: no symptoms Gastrointestinal: Reports: no symptoms Genitourinary: Reports: no symptoms Musculoskeletal: Reports: no symptoms Skin: Reports: rash Psychiatric: Reports: no symptoms Neurological: Reports: no symptoms Endocrine: Reports: no symptoms Hematologic/Lymphatic: Reports: no symptoms Physical Exam General Appearance: no apparent distress, alert Lines, tubes and drains: peripheral HEENT: normocephalic, atraumatic, anicteric, mucous membranes moist, PERRL Neck: non-tender, normal alignment, supple, normal inspection Respiratory/Chest: chest wall non-tender, lungs clear, normal breath sounds, no respiratory distress, no accessory muscle use Cardiovascular/Chest: normal peripheral pulses, normal rate, arrhythmia Abdomen: normal bowel sounds, non tender, soft, no organomegaly, no mass Extremities: normal range of motion, non-tender, normal inspection, no calf tenderness, normal capillary refill, non-pitting Skin Exam: rash Neurologic: foam tank laminator II-XII grossly normal, no motor/sensory deficits Last 24 Hour Vital Signs Date Time Temp Pulse Resp B/P (MAP) Pulse Ox O2 Delivery O2 Flow Rate FiO2 08/25/19 08:00 95 08/25/19 04:00 109 08/25/19 00:00 97 08/24/19 22:03 Room Air 08/24/19 21:24 86 08/24/19 21:20 98.1 95 18 120/75 98 Room Air 08/24/19 19:20 120/75 08/24/19 16:00 98.1 08/24/19 14:07 98.1 95 18 120/75 98 Room Air 08/24/19 14:07 98.1 95 18 120/75 (90) 98 Room Air Laboratory Tests Test 08/24/19 14:50 08/24/19 16:40 08/25/19 06:15 White Blood Count 3.5 K/UL (4.8-10.8) L 3.7 K/UL (4.8-10.8) L Red Blood Count 5.35 M/UL (4.20-5.40) 4.90 M/UL (4.20-5.40) Hemoglobin 16.0 G/DL (12.0-16.0) 14.8 G/DL (12.0-16.0) Hematocrit 48.0 % (37.0-47.0) H 42.5 % (37.0-47.0) Mean Corpuscular Volume 90 FL (80-99) 87 FL (80-99) Mean Corpuscular Hemoglobin 29.8 PG (27.0-31.0) 30.1 PG (27.0-31.0) Mean Corpuscular Hemoglobin Concent 33.2 G/DL (32.0-36.0) 34.8 G/DL (32.0-36.0) Red Cell Distribution Width 12.1 % (11.6-14.8) 10.9 % (11.6-14.8) L Platelet Count 26 K/UL (150-450) L 22 K/UL (150-450) L Mean Platelet Volume FL (6.5-10.1) 16.1 FL (6.5-10.1) H Neutrophils (%) (Auto) % (45.0-75.0) % (45.0-75.0) Lymphocytes (%) (Auto) % (20.0-45.0) % (20.0-45.0) Monocytes (%) (Auto) % (1.0-10.0) % (1.0-10.0) Eosinophils (%) (Auto) % (0.0-3.0) % (0.0-3.0) Basophils (%) (Auto) % (0.0-2.0) % (0.0-2.0) Differential Total Cells Counted 100 Neutrophils % (Manual) 76 % (45-75) H Pending Lymphocytes % (Manual) 6 % (20-45) L Pending Monocytes % (Manual) 17 % (1-10) H Eosinophils % (Manual) 1 % (0-3) Basophils % (Manual) 0 % (0-2) Band Neutrophils 0 % (0-8) Platelet Estimate Decreased L Pending Platelet Morphology Normal Pending Prothrombin Time 10.0 SEC (9.30-11.50) Prothromb Time International Ratio 0.9 (0.9-1.1) Activated Partial Thromboplast Time 32 SEC (23-33) Sodium Level 134 MMOL/L (136-145) L 136 MMOL/L (136-145) Potassium Level 3.6 MMOL/L (3.5-5.1) 3.6 MMOL/L (3.5-5.1) Chloride Level 98 MMOL/L (98-107) 101 MMOL/L (98-107) Carbon Dioxide Level 26 MMOL/L (21-32) 24 MMOL/L (21-32) Anion Gap 10 mmol/L (5-15) 11 mmol/L (5-15) Blood Urea Nitrogen 15 mg/dL (7-18) 7 mg/dL (7-18) Creatinine 1.1 MG/DL (0.55-1.30) 0.8 MG/DL (0.55-1.30) Estimat Glomerular Filtration Rate > 60 mL/min (>60) > 60 mL/min (>60) Glucose Level 314 MG/DL (74-106) H 209 MG/DL (74-106) #H Lactic Acid Level 0.80 mmol/L (0.4-2.0) Calcium Level 9.3 MG/DL (8.5-10.1) 8.8 MG/DL (8.5-10.1) Phosphorus Level 3.2 MG/DL (2.5-4.9) Magnesium Level 1.4 MG/DL (1.8-2.4) L Total Bilirubin 0.5 MG/DL (0.2-1.0) Aspartate Amino Transf (AST/SGOT) 46 U/L (15-37) H Alanine Aminotransferase (ALT/SGPT) 56 U/L (12-78) Alkaline Phosphatase 128 U/L (46-116) H Total Creatine Kinase 48 U/L (26-308) 45 U/L (26-140) Troponin I 0.020 ng/mL (0.000-0.056) 0.034 ng/mL (0.000-0.056) Pro-B-Type Natriuretic Peptide 1076 pg/mL (0-125) H Total Protein 7.2 G/DL (6.4-8.2) Albumin 3.4 G/DL (3.4-5.0) Globulin 3.8 g/dL Albumin/Globulin Ratio 0.9 (1.0-2.7) L Urine Color Yellow Urine Appearance Clear Urine pH 5 (4.5-8.0) Urine Specific [place] 1.015 (1.005-1.035) Urine Protein 2+ (NEGATIVE) H Urine Glucose (UA) 4+ (NEGATIVE) H Urine Ketones Negative (NEGATIVE) Urine Blood 1+ (NEGATIVE) H Urine Nitrite Negative (NEGATIVE) Urine Bilirubin Negative (NEGATIVE) Urine Urobilinogen 1 MG/DL (0.0-1.0) H Urine Leukocyte Esterase 1+ (NEGATIVE) H Urine RBC 2-4 /HPF (0 - 2) H Urine WBC 0-2 /HPF (0 - 2) Urine Squamous Epithelial Cells Occasional /LPF Urine Bacteria Occasional /HPF (NONE) Urine Opiates Screen Negative (NEGATIVE) Urine Barbiturates Screen Negative (NEGATIVE) Phencyclidine (PCP) Screen Negative (NEGATIVE) Urine Amphetamines Screen Negative (NEGATIVE) Urine Benzodiazepines Screen Negative (NEGATIVE) Urine Cocaine Screen Positive (NEGATIVE) H Urine Marijuana (THC) Screen Positive (NEGATIVE) H Hemoglobin A1c 9.1 % (4.3-6.0) H Triglycerides Level 96 MG/DL (30-150) Cholesterol Level 112 MG/DL (< 200) LDL Cholesterol 30 mg/dL (<100) HDL Cholesterol 62 MG/DL (40-60) H Cholesterol/HDL Ratio 1.8 (3.3-4.4) L Thyroid Stimulating Hormone (TSH) 0.274 uiU/mL (0.358-3.740) Height (Feet): 5 Height (Inches): 1.00 Weight (Pounds): 97 Medications Current Medications Medications (Trade) Dose Ordered Sig/Karine Route PRN Reason Start Time Stop Time Status Last Admin Dose Admin Acetaminophen (Tylenol) 650 mg Q4H PRN ORAL Mild Pain (Pain Scale 1-3) 08/24/19 22:30 09/23/19 22:29 Acetaminophen (Tylenol) 650 mg Q4H PRN ORAL fever 08/24/19 22:30 09/23/19 22:29 Acetaminophen/ Hydrocodone Bitart ([place] 5/325) 1 tab Q6H PRN ORAL For Pain 08/25/19 01:30 09/01/19 01:29 Acyclovir 500 mg/ Dextrose 110 ml @ 110 mls/hr Q12H IV 08/25/19 04:00 09/24/19 03:59 08/25/19 04:00 Dextrose (Dextrose 50%) 25 ml Q30M PRN IV Hypoglycemia 08/25/19 00:45 09/24/19 00:44 Dextrose (Dextrose 50%) 50 ml Q30M PRN IV Hypoglycemia 08/25/19 00:45 09/24/19 00:44 Diltiazem HCl (Cardizem) 180 mg DAILY ORAL 08/25/19 09:00 09/24/19 08:59 UNV Diphenhydramine HCl (Benadryl) 25 mg Q6H PRN ORAL Itching 08/25/19 01:30 09/24/19 01:29 Docusate Sodium (Colace) 100 mg EVERY 12 HOURS ORAL 08/25/19 09:00 09/24/19 08:59 Insulin Aspart (NovoLOG) BEFORE MEALS AND HS SUBQ 08/25/19 06:30 09/24/19 06:29 08/25/19 06:10 Insulin Detemir (Levemir) 5 units QHS SUBQ 08/24/19 22:45 09/23/19 22:44 Morphine Sulfate (Morphine Sulfate) 2 mg Q4H PRN IVP Severe Pain (Pain Scale 7-10) 08/25/19 01:30 09/01/19 01:29 Mycophenolate Mofetil (Cellcept) 1,000 mg TWICE A DAY ORAL 08/25/19 09:00 09/24/19 08:59 08/25/19 09:50 Ondansetron HCl (Zofran) 4 mg Q6H PRN IVP Nausea & Vomiting 08/24/19 22:30 09/23/19 22:29 Pantoprazole (Protonix) 40 mg DAILY ORAL 08/25/19 09:00 09/24/19 08:59 Prednisone (predniSONE) 5 mg DAILY ORAL 08/25/19 09:00 09/24/19 08:59 08/25/19 09:50 Sodium Chloride 1,000 ml @ 75 mls/hr [id number] IV 08/25/19 01:30 09/24/19 01:29 08/25/19 01:31 Assessment/Plan Status: stable Assessment/Plan: Assessment/Plan Assessment/Plan: 53-year-old AAF with PMH of renal transplant 5 years ago, DM type II, who presented to the ED for rash that began 6 days ago. Cardiology consulted for heart block MOBITZ II Continue to monitor on telemetry Patient having premature atrial contracts that are blocked, avoid vagal manuvers D/c with ziopatch Echocardiogram pending Replete electrolytes Caution with atropine in case of infra alejo heart block which will worsen conduction Aggressive gluocose control as hyperglycemia can damage conduction system Recommend psych consult for medication compliance Sumit Tristan MD Aug 25, 2019 10:29
[2019-08-25] MEDS ORDERED: Magnesium Oxide 400mg tab ORAL SCH (11:30)
[2019-08-25] MEDS: dilTIAZem HCl CD 180mg cap ORAL SCH (13:03)
[2019-08-25] MEDS ORDERED: Vigamox Opth Soln 3ml RIGHT EYE SCH (14:00)
--- NOTE | 2019-08-25 14:09 | NUR ---
RD ASSESSMENT & RECOMMENDATIONS SEE CARE ACTIVITY FOR COMPLETE ASSESSMENT DAILY ESTIMATED NEEDS: Needs based on DM, underweight 44kg 30-35 kcals/kg 6782-5328 total kcals 1-1.5 g protein/kg 44-66 g total protein 25-30 mL/kg 4144-0962 total fluid mLs NUTRITION DIAGNOSIS: Altered nutrition related lab values r/t IDDM as evidenced y A1C 9.1, BG 209 314, adm w/ (+) tox for cocaine. CURRENT DIET: Cardiac PO DIET RECOMMENDATIONS: CCHO LOW / LOW NA DIET ADDITIONAL RECOMMENDATIONS: 1) Obtain a calibrated bed scale wt 2) Monitor po intake -> Add high pro / 1 carb snacks, pt refused Glucerna 3) F/up w/ H&P
--- NOTE | 2019-08-25 14:17 | History and Physical ---
History of Present Illness General Reason for Hospitalization: Skin Rash/Abscess Present Illness HPI 53-year-old AAF with PMH of renal transplant 5 years ago, DM type II, who presented to the ED for worsening rash that began 6 days ago. Pt states she went to the ED and was told she had chicken pox, notes rashes on her face, palms and feet with pain while ambulating. Pt denies F/C, sore throat, CP, SOB, cough, N/V, diarrhea or dysuria or pain by her kidney transplant. Pt believes rash began due to her varicella and MMR vaccination that she received on . Rashes were concerning for disseminated varicella for which patient was admitted for further treatment and evaluation. On admission patient was found to be in Mobitz type II. On exam, pt stated she did not want any further workup regarding her heart, states she only cares about "getting rid of the rashs so I can go back to work". When explained to pt that with heart arrhythmia such as Mobitz type II pt can lead to sudden , pt expressed that she wants to be "let go" and only wants to "get ride of the rashes". Pt has a h/o non- compliance w/controlling her diabetes, was seen in the ED on 08/18 and was advised to be admitted for hyperglycemia but refused admission at that time. I explained to pt need for hospitalization at this time due to high acuity of arrhymia, and potential , pt expressed understanding and states she only cares about her rashes. ED course: Pt saying she wanted to leave AMA, ED physician explained to pt risks /benefits and pt agreed to stay. ER physician d/w Dr. Brariga [facility] transplant attending, reports the patient last was seen [address] Barriga recommended acyclovir, wants the patient to be transferred. ER attempted to transfer patient, Pt was noted to have erratic behavior and Urine tox was done which was positive for cocaine and THC. PMH: Renal failure s/p renal transplant at [facility], uncontrolled DM type II, non- compliant, drug abuse FH: Reviewed and not pertinent Allergies: NKDA Allergies: Coded Allergies: No Known Allergies (Unverified , 10/21/17) Medication History Scheduled Bacitracin (Bacitracin), 1 APPLIC TOPIC BID Cephalexin* (Keflex*), 500 MG ORAL EVERY 12 HOURS Diltiazem Hcl* (Cardizem*), 180 MG ORAL DAILY, (Reported) Diphenhydramine HCl (Benadryl), 25 MG PO Q6HR Mycophenolate Mofetil (Cellcept), 1,000 MG ORAL EVERY 12 HOURS, (Reported) Prednisone* (Prednisone*), 5 MG ORAL DAILY, (Reported) Trimethoprim/Sulfamethoxazole 160/800* (Bactrim Ds Tablet*), 1 TAB ORAL TWICE A DAY Scheduled PRN Acetaminophen (Tylenol), 650 MG ORAL Q6H PRN for Prn Pain/Headache/Temp > 101 Acetaminophen* (Tylenol Extra Strength*), 500 MG ORAL Q8H PRN for Prn Headache/ Temp > 101 Miscellaneous Medications Magnesium Amino Acid Chelate (Magnesium), 100 MG PO, (Reported) Patient History Healthcare decision maker Resuscitation status Full Code Advanced Directive on File Review of Systems Constitutional: Denies: no symptoms, see HPI, chills, sweats, fever, malaise, weakness, other Eye: Reports: eye pain - right eye edema, no pain on eye movement; Denies: no symptoms, see HPI, blurred vision, tearing, double vision, nose pain, nose congestion, acuity changes, discharge, other ENT: Denies: no symptoms, see HPI, ear pain, ear discharge, nose pain, nose congestion, throat pain, throat swelling, mouth pain, hearing loss, nasal discharge, other Respiratory: Denies: no symptoms, see HPI, cough, orthopnea, shortness of breath, stridor, wheezing, LOPEZ, sputum, other Cardiovascular: Denies: no symptoms, see HPI, chest pain, edema, palpitations, syncope, PND, other Gastrointestinal: Denies: no symptoms, see HPI, abdominal pain, constipation, diarrhea, nausea, vomiting, melena, hematemesis, other Genitourinary: Denies: no symptoms, see HPI, discharge, dysuria, frequency, hematuria, pain, retention, incontinence, urgency, vag bleed/dc, other Musculoskeletal: Denies: no symptoms, see HPI, back pain, gout, joint pain, joint swelling, muscle pain, muscle stiffness, other Skin: Reports: see HPI, rash, lesions; Denies: no symptoms, change in color, change in hair/nails, dryness, other Psychiatric: Denies: no symptoms, see HPI, prior hx, anxiety, depressed feelings, emotional problems, SI, HI, hallucinations, other Neurological: Denies: no symptoms, see HPI, headache, numbness, paresthesia, seizure, tingling, tremors, focal weakness, syncope, dizziness, other Endocrine: Denies: no symptoms, see HPI, excessive sweating, flushing, intolerance to temperature, increased thirst, increased urine, unexplained weight loss, other Hematologic/Lymphatic: Denies: no symptoms, see HPI, anemia, blood clots, easy bleeding, easy bruising, swollen glands, diathesis, other Physical Exam Physical Exam Narrative General: NAD, pt appears A&O x 3 but expresses irrational logical thinking HEENT: NCAT, rashes noted on lower portion of face, V3 region, right orbital swelling with purulent discharge, no pain upon eye movement CV: RRR, no murmurs, rubs, or gallops Pulm: CTAB, No wheezes, rhonchi, or rales, no accessory muscle usage or conversational dyspnea GI: Soft, nontender, nondistended, bowel sounds present Neuro: CN 2-12 grossly intact bilaterally, no focal signs. Ext: No lower extremity edema bilaterally Skin: Bilateral crusted lesions noted on face and upper trunk Msk: Joints symmetrical in upper extremity and lower extremity bilaterally, no joint swelling. Lymph: No lymphadenopathy in upper extremity and lower extremity Last 24 Hour Vital Signs Date Time Temp Pulse Resp B/P (MAP) Pulse Ox O2 Delivery O2 Flow Rate FiO2 08/25/19 13:03 84 137/81 08/25/19 08:00 95 08/25/19 04:00 109 08/25/19 00:00 97 08/24/19 22:03 Room Air 08/24/19 21:24 86 08/24/19 21:20 98.1 95 18 120/75 98 Room Air 08/24/19 19:20 120/75 08/24/19 16:00 98.1 Laboratory Tests Test 08/24/19 14:50 08/24/19 16:40 08/25/19 06:15 White Blood Count 3.5 K/UL (4.8-10.8) L 3.7 K/UL (4.8-10.8) L Red Blood Count 5.35 M/UL (4.20-5.40) 4.90 M/UL (4.20-5.40) Hemoglobin 16.0 G/DL (12.0-16.0) 14.8 G/DL (12.0-16.0) Hematocrit 48.0 % (37.0-47.0) H 42.5 % (37.0-47.0) Mean Corpuscular Volume 90 FL (80-99) 87 FL (80-99) Mean Corpuscular Hemoglobin 29.8 PG (27.0-31.0) 30.1 PG (27.0-31.0) Mean Corpuscular Hemoglobin Concent 33.2 G/DL (32.0-36.0) 34.8 G/DL (32.0-36.0) Red Cell Distribution Width 12.1 % (11.6-14.8) 10.9 % (11.6-14.8) L Platelet Count 26 K/UL (150-450) L 22 K/UL (150-450) L Mean Platelet Volume FL (6.5-10.1) 16.1 FL (6.5-10.1) H Neutrophils (%) (Auto) % (45.0-75.0) % (45.0-75.0) Lymphocytes (%) (Auto) % (20.0-45.0) % (20.0-45.0) Monocytes (%) (Auto) % (1.0-10.0) % (1.0-10.0) Eosinophils (%) (Auto) % (0.0-3.0) % (0.0-3.0) Basophils (%) (Auto) % (0.0-2.0) % (0.0-2.0) Differential Total Cells Counted 100 100 Neutrophils % (Manual) 76 % (45-75) H 70 % (45-75) Lymphocytes % (Manual) 6 % (20-45) L 22 % (20-45) Monocytes % (Manual) 17 % (1-10) H 5 % (1-10) Eosinophils % (Manual) 1 % (0-3) 1 % (0-3) Basophils % (Manual) 0 % (0-2) 0 % (0-2) Band Neutrophils 0 % (0-8) 2 % (0-8) Platelet Estimate Decreased L Decreased L Platelet Morphology Normal Normal Prothrombin Time 10.0 SEC (9.30-11.50) Prothromb Time International Ratio 0.9 (0.9-1.1) Activated Partial Thromboplast Time 32 SEC (23-33) Sodium Level 134 MMOL/L (136-145) L 136 MMOL/L (136-145) Potassium Level 3.6 MMOL/L (3.5-5.1) 3.6 MMOL/L (3.5-5.1) Chloride Level 98 MMOL/L (98-107) 101 MMOL/L (98-107) Carbon Dioxide Level 26 MMOL/L (21-32) 24 MMOL/L (21-32) Anion Gap 10 mmol/L (5-15) 11 mmol/L (5-15) Blood Urea Nitrogen 15 mg/dL (7-18) 7 mg/dL (7-18) Creatinine 1.1 MG/DL (0.55-1.30) 0.8 MG/DL (0.55-1.30) Estimat Glomerular Filtration Rate > 60 mL/min (>60) > 60 mL/min (>60) Glucose Level 314 MG/DL (74-106) H 209 MG/DL (74-106) #H Lactic Acid Level 0.80 mmol/L (0.4-2.0) Calcium Level 9.3 MG/DL (8.5-10.1) 8.8 MG/DL (8.5-10.1) Phosphorus Level 3.2 MG/DL (2.5-4.9) Magnesium Level 1.4 MG/DL (1.8-2.4) L Total Bilirubin 0.5 MG/DL (0.2-1.0) Aspartate Amino Transf (AST/SGOT) 46 U/L (15-37) H Alanine Aminotransferase (ALT/SGPT) 56 U/L (12-78) Alkaline Phosphatase 128 U/L (46-116) H Total Creatine Kinase 48 U/L (26-308) 45 U/L (26-140) Troponin I 0.020 ng/mL (0.000-0.056) 0.034 ng/mL (0.000-0.056) Pro-B-Type Natriuretic Peptide 1076 pg/mL (0-125) H Total Protein 7.2 G/DL (6.4-8.2) Albumin 3.4 G/DL (3.4-5.0) Globulin 3.8 g/dL Albumin/Globulin Ratio 0.9 (1.0-2.7) L Urine Color Yellow Urine Appearance Clear Urine pH 5 (4.5-8.0) Urine Specific [place] 1.015 (1.005-1.035) Urine Protein 2+ (NEGATIVE) H Urine Glucose (UA) 4+ (NEGATIVE) H Urine Ketones Negative (NEGATIVE) Urine Blood 1+ (NEGATIVE) H Urine Nitrite Negative (NEGATIVE) Urine Bilirubin Negative (NEGATIVE) Urine Urobilinogen 1 MG/DL (0.0-1.0) H Urine Leukocyte Esterase 1+ (NEGATIVE) H Urine RBC 2-4 /HPF (0 - 2) H Urine WBC 0-2 /HPF (0 - 2) Urine Squamous Epithelial Cells Occasional /LPF Urine Bacteria Occasional /HPF (NONE) Urine Opiates Screen Negative (NEGATIVE) Urine Barbiturates Screen Negative (NEGATIVE) Phencyclidine (PCP) Screen Negative (NEGATIVE) Urine Amphetamines Screen Negative (NEGATIVE) Urine Benzodiazepines Screen Negative (NEGATIVE) Urine Cocaine Screen Positive (NEGATIVE) H Urine Marijuana (THC) Screen Positive (NEGATIVE) H Red Blood Cell Morphology Normal Hemoglobin A1c 9.1 % (4.3-6.0) H Triglycerides Level 96 MG/DL (30-150) Cholesterol Level 112 MG/DL (< 200) LDL Cholesterol 30 mg/dL (<100) HDL Cholesterol 62 MG/DL (40-60) H Cholesterol/HDL Ratio 1.8 (3.3-4.4) L Thyroid Stimulating Hormone (TSH) 0.274 uiU/mL (0.358-3.740) Height (Feet): 5 Height (Inches): 1.00 Weight (Pounds): 97 Medications Current Medications Medications (Trade) Dose Ordered Sig/Karine Route PRN Reason Start Time Stop Time Status Last Admin Dose Admin Acetaminophen (Tylenol) 650 mg Q4H PRN ORAL Mild Pain (Pain Scale 1-3) 08/24/19 22:30 09/23/19 22:29 Acetaminophen (Tylenol) 650 mg Q4H PRN ORAL fever 08/24/19 22:30 09/23/19 22:29 Acetaminophen/ Hydrocodone Bitart ([place] 5/325) 1 tab Q6H PRN ORAL For Pain 08/25/19 01:30 09/01/19 01:29 Acyclovir 500 mg/ Dextrose 110 ml @ 110 mls/hr Q12H IV 08/25/19 04:00 09/24/19 03:59 08/25/19 04:00 Dextrose (Dextrose 50%) 25 ml Q30M PRN IV Hypoglycemia 08/25/19 00:45 09/24/19 00:44 Dextrose (Dextrose 50%) 50 ml Q30M PRN IV Hypoglycemia 08/25/19 00:45 09/24/19 00:44 Diltiazem HCl (Cardizem CD) 180 mg DAILY ORAL 08/25/19 13:00 09/24/19 12:59 08/25/19 13:03 Diphenhydramine HCl (Benadryl) 25 mg Q6H PRN ORAL Itching 08/25/19 01:30 09/24/19 01:29 Docusate Sodium (Colace) 100 mg EVERY 12 HOURS ORAL 08/25/19 09:00 09/24/19 08:59 Enoxaparin Sodium (Lovenox) 40 mg DAILY SUBQ 08/26/19 09:00 09/25/19 08:59 Insulin Aspart (NovoLOG) BEFORE MEALS AND HS SUBQ 08/25/19 06:30 09/24/19 06:29 08/25/19 13:06 Insulin Detemir (Levemir) 5 units QHS SUBQ 08/24/19 22:45 09/23/19 22:44 Morphine Sulfate (Morphine Sulfate) 2 mg Q4H PRN IVP Severe Pain (Pain Scale 7-10) 08/25/19 01:30 09/01/19 01:29 Moxifloxacin HCl (Vigamox) 2 drop Q2H RIGHT EYE 08/25/19 15:00 08/27/19 23:59 Moxifloxacin HCl (Vigamox) 2 drop Q4HR RIGHT EYE 08/28/19 01:00 09/02/19 23:59 Mycophenolate Mofetil (Cellcept) 1,000 mg TWICE A DAY ORAL 08/25/19 09:00 09/24/19 08:59 08/25/19 09:50 Ondansetron HCl (Zofran) 4 mg Q6H PRN IVP Nausea & Vomiting 08/24/19 22:30 09/23/19 22:29 Pantoprazole (Protonix) 40 mg DAILY ORAL 08/25/19 09:00 09/24/19 08:59 Prednisone (predniSONE) 5 mg DAILY ORAL 08/25/19 09:00 09/24/19 08:59 08/25/19 09:50 Sodium Chloride 1,000 ml @ 75 mls/hr [id number] IV 08/25/19 01:30 09/24/19 01:29 08/25/19 13:03 Assessment/Plan Assessment/Plan: 53-year-old AAF with PMH of renal transplant 5 years ago, DM type II, who presented to the ED for rash that began 6 days ago. Pt believes this developed as a side effect after recieving the MMR vaccine in late june. On admission patient was found to be in Mobitz type II. Rashes were concerning for disseminated varicella for which patient was admitted for further treatment and evaluation. #Disseminated varicella Admit to medical floor, telemetry Cont. IV Valcyclovir 500 BID IV Air borne precautions ID consulted, recs appreciated #Mobitz Type II Seen on EKG on admission pt denies any CP, SOB, palpiations, states she was "angry" and believes that is the cause of her arrhythmia U tox positive for cocaine Cardio, Dr. Tristan consulted CM for transfer to [facility] for PPM #Acute bacterial conjunctivitis, right eye Start moxifloxacin eye drops #h/o renal transplant pt pending transfer to [facility] for further evaluation and work up cont. mycofenalate CM for transfer process #H/o medical non-compliance #Irrational behavior Upon discussion pt's POC, Pt is only concerned about her skin and does not care about her cardiac arrhymia, when explained that she could have sudden pt states she wants to be "let go" but only wants to stay for her "rashes to go away" Urine tox positive for TCH and cocaine physch consulted for pt capacity #Diabetes type 2 #Non-compliance #Hyperglycemia obtain A1C ISS, FSBS, insuin 5 U qHS #Hypomagnesemia Replace Continue to monitor, replace as needed DVT PPx: lovenox Time spent on encounter: 55 mins, >50% on pt counseling, coordination of care, discussed case w/Cardiology/RN. An additional 30 mins was spent with chart review. Time of note doesn't reflect time of encounter. Zeina Erickson M.D. Aug 25, 2019 14:17
[2019-08-25] MEDS: Vigamox Opth Soln 3ml RIGHT EYE SCH ×5 (15:34→23:00)
--- NOTE | 2019-08-25 15:44 | Infectious Diseases Prog Note ---
Assessment/Plan Assessment/Plan Full consult dictated: A) 1) likely disseminated varicella virus infection, rash, lesions, no cellulitis 2) s/p varicella vaccination and MMR - 07/18/19 per records 3) right eye involvement, ? ophthalmicus 4) renal txp patient P) 1) iv acyclovir 2) check serology 3) monitor labs and clinically 4) thank you Subjective Allergies: Coded Allergies: No Known Allergies (Unverified , 10/21/17) Objective Vital Signs Last 24 Hour Vital Signs Date Time Temp Pulse Resp B/P (MAP) Pulse Ox O2 Delivery O2 Flow Rate FiO2 08/25/19 13:03 84 137/81 08/25/19 08:00 95 08/25/19 04:00 109 08/25/19 00:00 97 08/24/19 22:03 Room Air 08/24/19 21:24 86 08/24/19 21:20 98.1 95 18 120/75 98 Room Air 08/24/19 19:20 120/75 08/24/19 16:00 98.1 Height (Feet): 5 Height (Inches): 1.00 Weight (Pounds): 97 Laboratory Tests Test 08/24/19 16:40 08/25/19 06:15 Urine Color Yellow Urine Appearance Clear Urine pH 5 (4.5-8.0) Urine Specific [place] 1.015 (1.005-1.035) Urine Protein 2+ (NEGATIVE) H Urine Glucose (UA) 4+ (NEGATIVE) H Urine Ketones Negative (NEGATIVE) Urine Blood 1+ (NEGATIVE) H Urine Nitrite Negative (NEGATIVE) Urine Bilirubin Negative (NEGATIVE) Urine Urobilinogen 1 MG/DL (0.0-1.0) H Urine Leukocyte Esterase 1+ (NEGATIVE) H Urine RBC 2-4 /HPF (0 - 2) H Urine WBC 0-2 /HPF (0 - 2) Urine Squamous Epithelial Cells Occasional /LPF Urine Bacteria Occasional /HPF (NONE) Urine Opiates Screen Negative (NEGATIVE) Urine Barbiturates Screen Negative (NEGATIVE) Phencyclidine (PCP) Screen Negative (NEGATIVE) Urine Amphetamines Screen Negative (NEGATIVE) Urine Benzodiazepines Screen Negative (NEGATIVE) Urine Cocaine Screen Positive (NEGATIVE) H Urine Marijuana (THC) Screen Positive (NEGATIVE) H White Blood Count 3.7 K/UL (4.8-10.8) L Red Blood Count 4.90 M/UL (4.20-5.40) Hemoglobin 14.8 G/DL (12.0-16.0) Hematocrit 42.5 % (37.0-47.0) Mean Corpuscular Volume 87 FL (80-99) Mean Corpuscular Hemoglobin 30.1 PG (27.0-31.0) Mean Corpuscular Hemoglobin Concent 34.8 G/DL (32.0-36.0) Red Cell Distribution Width 10.9 % (11.6-14.8) L Platelet Count 22 K/UL (150-450) L Mean Platelet Volume 16.1 FL (6.5-10.1) H Neutrophils (%) (Auto) % (45.0-75.0) Lymphocytes (%) (Auto) % (20.0-45.0) Monocytes (%) (Auto) % (1.0-10.0) Eosinophils (%) (Auto) % (0.0-3.0) Basophils (%) (Auto) % (0.0-2.0) Differential Total Cells Counted 100 Neutrophils % (Manual) 70 % (45-75) Lymphocytes % (Manual) 22 % (20-45) Monocytes % (Manual) 5 % (1-10) Eosinophils % (Manual) 1 % (0-3) Basophils % (Manual) 0 % (0-2) Band Neutrophils 2 % (0-8) Platelet Estimate Decreased L Platelet Morphology Normal Red Blood Cell Morphology Normal Sodium Level 136 MMOL/L (136-145) Potassium Level 3.6 MMOL/L (3.5-5.1) Chloride Level 101 MMOL/L (98-107) Carbon Dioxide Level 24 MMOL/L (21-32) Anion Gap 11 mmol/L (5-15) Blood Urea Nitrogen 7 mg/dL (7-18) Creatinine 0.8 MG/DL (0.55-1.30) Estimat Glomerular Filtration Rate > 60 mL/min (>60) Glucose Level 209 MG/DL (74-106) #H Hemoglobin A1c 9.1 % (4.3-6.0) H Calcium Level 8.8 MG/DL (8.5-10.1) Total Creatine Kinase 45 U/L (26-140) Troponin I 0.034 ng/mL (0.000-0.056) Triglycerides Level 96 MG/DL (30-150) Cholesterol Level 112 MG/DL (< 200) LDL Cholesterol 30 mg/dL (<100) HDL Cholesterol 62 MG/DL (40-60) H Cholesterol/HDL Ratio 1.8 (3.3-4.4) L Thyroid Stimulating Hormone (TSH) 0.274 uiU/mL (0.358-3.740) Current Medications Medications (Trade) Dose Ordered Sig/Karine Route PRN Reason Start Time Stop Time Status Last Admin Dose Admin Acetaminophen (Tylenol) 650 mg Q4H PRN ORAL Mild Pain (Pain Scale 1-3) 08/24/19 22:30 09/23/19 22:29 Acetaminophen (Tylenol) 650 mg Q4H PRN ORAL fever 08/24/19 22:30 09/23/19 22:29 Acetaminophen/ Hydrocodone Bitart ([place] 5/325) 1 tab Q6H PRN ORAL For Pain 08/25/19 01:30 09/01/19 01:29 Acyclovir 500 mg/ Dextrose 110 ml @ 110 mls/hr Q12H IV 08/25/19 04:00 09/24/19 03:59 08/25/19 04:00 Dextrose (Dextrose 50%) 25 ml Q30M PRN IV Hypoglycemia 08/25/19 00:45 09/24/19 00:44 Dextrose (Dextrose 50%) 50 ml Q30M PRN IV Hypoglycemia 08/25/19 00:45 09/24/19 00:44 Diltiazem HCl (Cardizem CD) 180 mg DAILY ORAL 08/25/19 13:00 09/24/19 12:59 08/25/19 13:03 Diphenhydramine HCl (Benadryl) 25 mg Q6H PRN ORAL Itching 08/25/19 01:30 09/24/19 01:29 Docusate Sodium (Colace) 100 mg EVERY 12 HOURS ORAL 08/25/19 09:00 09/24/19 08:59 Enoxaparin Sodium (Lovenox) 40 mg DAILY SUBQ 08/26/19 09:00 09/25/19 08:59 Insulin Aspart (NovoLOG) BEFORE MEALS AND HS SUBQ 08/25/19 16:30 09/24/19 16:29 Insulin Detemir (Levemir) 5 units QHS SUBQ 08/24/19 22:45 4/6/20 22:44 Morphine Sulfate (Morphine Sulfate) 2 mg Q4H PRN IVP Severe Pain (Pain Scale 7-10) 08/25/19 01:30 09/01/19 01:29 Moxifloxacin HCl (Vigamox) 2 drop Q2H RIGHT EYE 08/25/19 15:00 08/27/19 23:59 Moxifloxacin HCl (Vigamox) 2 drop Q4HR RIGHT EYE 08/28/19 01:00 09/02/19 23:59 Mycophenolate Mofetil (Cellcept) 1,000 mg TWICE A DAY ORAL 08/25/19 09:00 09/24/19 08:59 08/25/19 09:50 Ondansetron HCl (Zofran) 4 mg Q6H PRN IVP Nausea & Vomiting 08/24/19 22:30 09/23/19 22:29 Pantoprazole (Protonix) 40 mg DAILY ORAL 08/25/19 09:00 09/24/19 08:59 Prednisone (predniSONE) 5 mg DAILY ORAL 08/25/19 09:00 09/24/19 08:59 08/25/19 09:50 Sodium Chloride 1,000 ml @ 75 mls/hr [id number] IV 08/25/19 01:30 09/24/19 01:29 08/25/19 13:03 Juana Roach MD Aug 25, 2019 15:43
[2019-08-25] MEDS: Acyclovir 500 MG in D5W 110 ML IV SCH (18:43)
[2019-08-25] MEDS ORDERED: Atropine Inj 1mg/10ml Syr IVP PRN (19:31)
--- NOTE | 2019-08-25 19:55 | NUR ---
HAND-OFF: Report given to Chelsea/AL, pt in stable condition.
[2019-08-25 20:00] VITALS: BP 101/66
--- NOTE | 2019-08-25 20:00 | NUR ---
NURSE NOTES: Patient is awake and alert x4 ambulatory steady gait, but complains of pain when walking due to chickenpox on feet. Placed on airborne precautions for shingles. Papules/red rash noted throughout entire body, but beginning to crust over. Pt is on room air, breathing unlabored and even. Only complaints are related to pain due to body covered in papules and vesicles, eyes have yellow exudate and are reddened, receiving eye drops q 2 hours
[2019-08-25] MEDS: Levemir Flexpen SUBQ SCH (21:25)
[2019-08-26] MEDS: Acyclovir 500 MG in D5W 110 ML IV SCH ×3 (01:02→17:00)
[2019-08-26] MEDS: Vigamox Opth Soln 3ml RIGHT EYE SCH ×11 (01:02→21:22)
[2019-08-26 04:00] VITALS: BP 115/62
[2019-08-26] MEDS: NovoLOG Insulin Flexpen SUBQ SCH ×4 (06:49→21:00)
[2019-08-26 08:00] VITALS: BP 127/76
--- NOTE | 2019-08-26 08:11 | NUR ---
HAND-OFF: Report given to AL Hernandez.
--- NOTE | 2019-08-26 08:15 | NUR ---
NURSE NOTES: recvd pt. Pt is AOX4,pt is on room air with no sign of sob or resp distress.Pt is c/o itching all over,per Dr Koffi partida to give Benadryl IVP. Bed in lowest position, will continue with plan of care.
[2019-08-26 08:56] LABS: HEMATOCRIT 45.7 % (37.0-47.0); HEMOGLOBIN 15.7 G/DL (12.0-16.0); MEAN CORPUSCULAR VOLUME 89 FL (80-99); PLATELET COUNT 33 K/UL (150-450); RED BLOOD COUNT 5.13 M/UL (4.20-5.40); RED CELL DISTRIBUTION WIDTH 11.3 % (11.6-14.8); WHITE BLOOD COUNT 4.1 K/UL (4.8-10.8)
[2019-08-26] MEDS ORDERED: Enoxaparin 40mg Inj SUBQ SCH (09:00)
[2019-08-26 09:21] LABS: ALANINE AMINOTRANSFERASE 50 U/L (12-78); ALBUMIN 3.3 G/DL (3.4-5.0); ALKALINE PHOSPHATASE 145 U/L (46-116); ANION GAP 13 mmol/L (5-15); ASPARTATE AMINO TRANSFERASE 35 U/L (15-37); BILIRUBIN,TOTAL 0.5 MG/DL (0.2-1.0); BLOOD UREA NITROGEN 10 mg/dL (7-18); CALCIUM 9.2 MG/DL (8.5-10.1); CARBON DIOXIDE 25 MMOL/L (21-32); CHLORIDE 104 MMOL/L (98-107); CREATININE 0.8 MG/DL (0.55-1.30); POTASSIUM 3.5 MMOL/L (3.5-5.1); SODIUM 142 MMOL/L (136-145)
[2019-08-26] MEDS: dilTIAZem HCl CD 180mg cap ORAL SCH (09:41)
[2019-08-26] MEDS: Mycophenolate 250mg cap ORAL SCH ×2 (09:41→17:38)
[2019-08-26] MEDS: Docusate 100mg cap ORAL SCH ×2 (09:41→21:00)
[2019-08-26] MEDS: DiphenhydrAMINE 50mg/ml Inj IVP PRN ×2 (09:41→21:38)
--- NOTE | 2019-08-26 10:08 | Cardiology Progress Note ---
Assessment/Plan Status: stable Assessment/Plan Assessment/Plan Assessment/Plan: 53-year-old AAF with PMH of renal transplant 5 years ago, DM type II, who presented to the ED for rash that began 6 days ago. Cardiology consulted for heart block MOBITZ II Continue to monitor on telemetry Patient having premature atrial contracts that are blocked, avoid vagal manuvers , no indication for pacemaker D/c with ziopatch Echocardiogram pending Replete electrolytes Caution with atropine in case of infra alejo heart block which will worsen conduction Aggressive glucose control as hyperglycemia can damage conduction system Recommend psych consult for medication compliance Subjective Cardiovascular: Reports: no symptoms Respiratory: Reports: no symptoms Gastrointestinal/Abdominal: Reports: no symptoms Genitourinary: Reports: no symptoms Subjective No acute events, complains of rash and itching, monitor shows lots of PACS, no blocks Objective Last 24 Hour Vital Signs Date Time Temp Pulse Resp B/P (MAP) Pulse Ox O2 Delivery O2 Flow Rate FiO2 08/26/19 09:41 125 127/76 08/26/19 08:49 Room Air 08/26/19 08:00 98.1 125 20 127/76 (93) 99 08/26/19 04:00 97.0 79 19 115/62 (79) 99 08/26/19 04:00 73 08/26/19 00:00 75 08/25/19 21:00 Room Air 08/25/19 20:00 99.3 84 16 101/66 (78) 99 08/25/19 20:00 97 08/25/19 16:00 103 08/25/19 16:00 Room Air 08/25/19 13:03 84 137/81 08/25/19 12:00 92 General Appearance: no apparent distress, alert EENT: PERRL/EOMI, normal ENT inspection, TMs normal, pharynx normal Neck: non-tender, normal alignment, supple, normal inspection, no JVD Rhythm: NSR, PACs Cardiovascular: normal peripheral pulses, normal rate, regularly irregular Respiratory/Chest: chest wall non-tender, lungs clear, normal breath sounds, no respiratory distress, no accessory muscle use Abdomen: normal bowel sounds, non tender, soft, no organomegaly, no mass Extremities: normal range of motion, non-tender 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, no motor/sensory deficits Laboratory Tests Test 3/8/20 16:05 08/25/19 22:00 08/26/19 07:50 Rubeola (Measles) IgG Antibody Pending Rubeola (Measles) IgM Antibody Pending Varicella-Zoster IgG Antibody Pending Varicella-Zoster IgM Antibody Pending Troponin I 0.019 ng/mL (0.000-0.056) 0.014 ng/mL (0.000-0.056) White Blood Count 4.1 K/UL (4.8-10.8) L Red Blood Count 5.13 M/UL (4.20-5.40) Hemoglobin 15.7 G/DL (12.0-16.0) Hematocrit 45.7 % (37.0-47.0) Mean Corpuscular Volume 89 FL (80-99) Mean Corpuscular Hemoglobin 30.7 PG (27.0-31.0) Mean Corpuscular Hemoglobin Concent 34.4 G/DL (32.0-36.0) Red Cell Distribution Width 11.3 % (11.6-14.8) L Platelet Count 33 K/UL (150-450) L Mean Platelet Volume 16.1 FL (6.5-10.1) H Neutrophils (%) (Auto) % (45.0-75.0) Lymphocytes (%) (Auto) % (20.0-45.0) Monocytes (%) (Auto) % (1.0-10.0) Eosinophils (%) (Auto) % (0.0-3.0) Basophils (%) (Auto) % (0.0-2.0) Neutrophils % (Manual) Pending Lymphocytes % (Manual) Pending Platelet Estimate Pending Platelet Morphology Pending Sodium Level 142 MMOL/L (136-145) Potassium Level 3.5 MMOL/L (3.5-5.1) Chloride Level 104 MMOL/L (98-107) Carbon Dioxide Level 25 MMOL/L (21-32) Anion Gap 13 mmol/L (5-15) Blood Urea Nitrogen 10 mg/dL (7-18) Creatinine 0.8 MG/DL (0.55-1.30) Estimat Glomerular Filtration Rate > 60 mL/min (>60) Glucose Level 179 MG/DL (74-106) H Calcium Level 9.2 MG/DL (8.5-10.1) Total Bilirubin 0.5 MG/DL (0.2-1.0) Aspartate Amino Transf (AST/SGOT) 35 U/L (15-37) Alanine Aminotransferase (ALT/SGPT) 50 U/L (12-78) Alkaline Phosphatase 145 U/L (46-116) H Total Protein 6.6 G/DL (6.4-8.2) Albumin 3.3 G/DL (3.4-5.0) L Globulin 3.3 g/dL Albumin/Globulin Ratio 1.0 (1.0-2.7) Sumit Tristan MD Aug 26, 2019 10:08
[2019-08-26 12:00] VITALS: BP 118/62
[2019-08-26] MEDS ORDERED: CELLCEPT250 MG ORAL (13:37)
[2019-08-26] MEDS ORDERED: BENADRYL25 MG ORAL (13:39)
[2019-08-26] MEDS ORDERED: PREDNISONE5 M3 PO (13:43)
--- NOTE | 2019-08-26 14:51 | NUR ---
CASE MANAGEMENT:REVIEW 53 YR OLD FEMALE PRESENTED TO ER CC: RASH X10 DAYS PMH: TRANSPLANT RECIPIENT SI:CHICKEN POX, MOBITZ TYPE II BLOCK DEHYDRATION 98.1 95 18 120/75 98% ON RA PLT-26 GLUCOSE+314 MAG-1.4 URINE(+) COCAINE AND THC IS: TYLENOL PO BENADRYL PO 1L NS BOLUS X2 CHEST XRAY : TO TELEMETRY 08/25/19 SI: DISSEMINATED VARICELLA MOBITZ TYPE II. RT EYE CONJUNCTIVITIS 99.3 103 16 101/66 99% ON RA IS: VIGAMOX RT EYE Q4HRS IV ACYCLOVIR Q8HRS IVF@75/HR CARDIZEM PO QD CELLCEPT PO BID PREDNISONE PO QD PROTONIX PO QD : TELEMETRY STATUS DCP: FROM HOME 08/26/19 SI: DISSEMINATED VARICELLA MOBITZ TYPE II. RT EYE CONJUNCTIVITIS 98.4 125 20 BP~127/76 99% ON RA PLT-33 IS: VIGAMOX RT EYE Q4HRS IV ACYCLOVIR Q8HRS IVF@75/HR CARDIZEM PO QD CELLCEPT PO BID PREDNISONE PO QD PROTONIX PO QD : TELEMETRY STATUS DCP: FROM HOME PLAN: REFERRED TO [facility] SINCE SHE IS IS TRANSPLANT PATIENT
--- NOTE | 2019-08-26 15:14 | NUR ---
TRANSFER UPDATE REQUEST HAS BEEN MADE CLINCALS HAVE BEEN FAXED TO [facility] T: [phone] F: [phone] Addendum: 08/26/19 at 1616 by KYLE DUMONTN RECEIVED CALL FROM ZULLY AT [facility] PER LISA ANDREA) NEEDS TO RECEIVE AUTHORIZATION FROM BOTH [facility] BEFORE THEY CAN ACCEPT PATIENT WRITTEN AUTHORIZATION NEEDS TO BE FAXED [facility] T; [phone] THIS JAVA FLEX DEVELOPER LEFT [facility] FOR EDUIN AT [facility]
--- NOTE | 2019-08-26 15:30 | General Progress Note ---
Assessment/Plan Status: stable Assessment/Plan: 53-year-old AAF with PMH of renal transplant 5 years ago, DM type II, who presented to the ED for rash Pt believes this developed as a side effect after recieving the MMR vaccine in late June. On admission patient was found to be in Mobitz type II. Rashes were concerning for disseminated varicella for which patient was admitted for further treatment and evaluation. #Disseminated varicella Continue inpatient medical care Cont. IV Valacyclovir 500 BID IV IV Benadryl for pruritic Air borne precautions ID following #Mobitz Type II Seen on EKG on admission pt denies any CP, SOB, palpitations U tox positive for cocaine and cannabis Cardio, Dr. Tristan following No indication for PPM at this time #Acute bacterial conjunctivitis, right eye Started moxifloxacin eye drops #h/o renal transplant pt pending transfer to [facility] for further evaluation and work up cont. mycofenalate CM for transfer process #H/o medical non-compliance #Irrational behavior Urine tox positive for THC and cocaine psych consulted for pt capacity #Diabetes type 2 #Non-compliance #Hyperglycemia obtain A1C ISS, FSBS, insuin 5 U qHS #Hypomagnesemia Replace Continue to monitor, replace as needed DVT PPx: lovenox Time spent on encounter: 35 mins, >50% on pt counseling, coordination of care. I spent an additional 35 minutes on review of medical records including prior outside hospital records, consult notes, progress notes, procedures, imaging, labs, hemodynamics, and other clinical documentation. Subjective Date patient seen: Aug 26, 2019 Time patient seen: 10:22 ROS Limited/Unobtainable: No Constitutional: Denies: chills, fever HEENT: Denies: eye pain, blurred vision, tearing Cardiovascular: Denies: chest pain, edema Respiratory: Denies: cough, orthopnea, shortness of breath Gastrointestinal/Abdominal: Denies: abdominal pain, diarrhea Genitourinary: Denies: burning, frequency Neurologic/Psychiatric: Denies: anxiety, depressed Endocrine: Denies: excessive sweating Allergies: Coded Allergies: No Known Allergies (Unverified , 10/21/17) Objective Last 24 Hour Vital Signs Date Time Temp Pulse Resp B/P (MAP) Pulse Ox O2 Delivery O2 Flow Rate FiO2 08/26/19 12:00 94 08/26/19 12:00 98.4 89 20 118/62 (80) 99 08/26/19 09:41 125 127/76 08/26/19 08:49 Room Air 08/26/19 08:00 98.1 125 20 127/76 (93) 99 08/26/19 08:00 74 08/26/19 04:00 97.0 79 19 115/62 (79) 99 08/26/19 04:00 73 08/26/19 00:00 75 08/25/19 21:00 Room Air 08/25/19 20:00 99.3 84 16 101/66 (78) 99 08/25/19 20:00 97 08/25/19 16:00 103 08/25/19 16:00 Room Air Laboratory Tests 08/25/19 16:05: Rubeola (Measles) IgG Antibody [Pending], Rubeola (Measles) IgM Antibody [ Pending], Varicella-Zoster IgG Antibody [Pending], Varicella-Zoster IgM Antibody [Pending] 08/25/19 22:00: Troponin I 0.019 08/26/19 07:50: Troponin I 0.014, White Blood Count 4.1L, Red Blood Count 5.13, Hemoglobin 15.7 , Hematocrit 45.7, Mean Corpuscular Volume 89, Mean Corpuscular Hemoglobin 30.7 , Mean Corpuscular Hemoglobin Concent 34.4, Red Cell Distribution Width 11.3L, Platelet Count 33L, Mean Platelet Volume 16.1H, Neutrophils (%) (Auto) , Lymphocytes (%) (Auto) , Monocytes (%) (Auto) , Eosinophils (%) (Auto) , Basophils (%) (Auto) , Differential Total Cells Counted 100, Neutrophils % ( Manual) 73, Lymphocytes % (Manual) 17L, Monocytes % (Manual) 9, Eosinophils % ( Manual) 1, Basophils % (Manual) 0, Band Neutrophils 0, Platelet Estimate DecreasedL, Platelet Morphology Normal, Sodium Level 142, Potassium Level 3.5, Chloride Level 104, Carbon Dioxide Level 25, Anion Gap 13, Blood Urea Nitrogen 10, Creatinine 0.8, Estimat Glomerular Filtration Rate > 60, Glucose Level 179H , Calcium Level 9.2, Total Bilirubin 0.5, Aspartate Amino Transf (AST/SGOT) 35, Alanine Aminotransferase (ALT/SGPT) 50, Alkaline Phosphatase 145H, Total Protein 6.6, Albumin 3.3L, Globulin 3.3, Albumin/Globulin Ratio 1.0 Height (Feet): 5 Height (Inches): 1.00 Weight (Pounds): 97 General Appearance: no apparent distress, alert Neck: normal alignment, supple Cardiovascular: normal rate, regular rhythm Respiratory/Chest: lungs clear, normal breath sounds, no respiratory distress Abdomen: non tender, soft Neurologic: circuit board drafter II-XII grossly normal, no motor/sensory deficits Skin: normal pigmentation, rash Asvhin Pacheco MD Aug 26, 2019 15:30
[2019-08-26 16:00] VITALS: BP 124/77
--- NOTE | 2019-08-26 18:20 | Infectious Diseases Prog Note ---
Assessment/Plan Assessment/Plan Full consult dictated: A) 1) likely disseminated varicella virus infection, rash, lesions, no cellulitis 2) s/p varicella vaccination and MMR - 07/18/19 per records 3) right eye conjunctivitis, likely bacterial 4) renal txp patient P) 1) iv acyclovir - day # 2 2) monitor clinically and labs 3) airborne isolation until crusting of lesions 4) will f/u Subjective Constitutional: Denies: fever Respiratory: Denies: shortness of breath Cardiovascular: Denies: chest pain Gastrointestinal/Abdominal: Denies: nausea, vomiting, diarrhea Allergies: Coded Allergies: No Known Allergies (Unverified , 10/21/17) Objective Vital Signs Last 24 Hour Vital Signs Date Time Temp Pulse Resp B/P (MAP) Pulse Ox O2 Delivery O2 Flow Rate FiO2 08/26/19 16:00 77 08/26/19 16:00 99.0 70 20 124/77 (93) 98 08/26/19 12:00 94 08/26/19 12:00 98.4 89 20 118/62 (80) 99 08/26/19 09:41 125 127/76 08/26/19 08:49 Room Air 08/26/19 08:00 98.1 125 20 127/76 (93) 99 08/26/19 08:00 74 08/26/19 04:00 97.0 79 19 115/62 (79) 99 08/26/19 04:00 73 08/26/19 00:00 75 08/25/19 21:00 Room Air 08/25/19 20:00 99.3 84 16 101/66 (78) 99 08/25/19 20:00 97 Height (Feet): 5 Height (Inches): 1.00 Weight (Pounds): 97 General Appearance: no acute distress HEENT: normocephalic, atraumatic, anicteric Respiratory/Chest: lungs clear, normal breath sounds, no respiratory distress Cardiovascular: normal rate, regular rhythm Abdomen: normal bowel sounds, soft, non tender, no organomegaly Laboratory Tests Test 08/25/19 22:00 08/26/19 07:50 Troponin I 0.019 ng/mL (0.000-0.056) 0.014 ng/mL (0.000-0.056) White Blood Count 4.1 K/UL (4.8-10.8) L Red Blood Count 5.13 M/UL (4.20-5.40) Hemoglobin 15.7 G/DL (12.0-16.0) Hematocrit 45.7 % (37.0-47.0) Mean Corpuscular Volume 89 FL (80-99) Mean Corpuscular Hemoglobin 30.7 PG (27.0-31.0) Mean Corpuscular Hemoglobin Concent 34.4 G/DL (32.0-36.0) Red Cell Distribution Width 11.3 % (11.6-14.8) L Platelet Count 33 K/UL (150-450) L Mean Platelet Volume 16.1 FL (6.5-10.1) H Neutrophils (%) (Auto) % (45.0-75.0) Lymphocytes (%) (Auto) % (20.0-45.0) Monocytes (%) (Auto) % (1.0-10.0) Eosinophils (%) (Auto) % (0.0-3.0) Basophils (%) (Auto) % (0.0-2.0) Differential Total Cells Counted 100 Neutrophils % (Manual) 73 % (45-75) Lymphocytes % (Manual) 17 % (20-45) L Monocytes % (Manual) 9 % (1-10) Eosinophils % (Manual) 1 % (0-3) Basophils % (Manual) 0 % (0-2) Band Neutrophils 0 % (0-8) Platelet Estimate Decreased L Platelet Morphology Normal Sodium Level 142 MMOL/L (136-145) Potassium Level 3.5 MMOL/L (3.5-5.1) Chloride Level 104 MMOL/L (98-107) Carbon Dioxide Level 25 MMOL/L (21-32) Anion Gap 13 mmol/L (5-15) Blood Urea Nitrogen 10 mg/dL (7-18) Creatinine 0.8 MG/DL (0.55-1.30) Estimat Glomerular Filtration Rate > 60 mL/min (>60) Glucose Level 179 MG/DL (74-106) H Calcium Level 9.2 MG/DL (8.5-10.1) Total Bilirubin 0.5 MG/DL (0.2-1.0) Aspartate Amino Transf (AST/SGOT) 35 U/L (15-37) Alanine Aminotransferase (ALT/SGPT) 50 U/L (12-78) Alkaline Phosphatase 145 U/L (46-116) H Total Protein 6.6 G/DL (6.4-8.2) Albumin 3.3 G/DL (3.4-5.0) L Globulin 3.3 g/dL Albumin/Globulin Ratio 1.0 (1.0-2.7) Current Medications Medications (Trade) Dose Ordered Sig/Karine Route PRN Reason Start Time Stop Time Status Last Admin Dose Admin Acetaminophen (Tylenol) 650 mg Q4H PRN ORAL Mild Pain (Pain Scale 1-3) 08/24/19 22:30 09/23/19 22:29 08/25/19 21:13 Acetaminophen (Tylenol) 650 mg Q4H PRN ORAL fever 08/24/19 22:30 09/23/19 22:29 Acetaminophen/ Hydrocodone Bitart ([place] 5/325) 1 tab Q6H PRN ORAL For Pain 08/25/19 01:30 09/01/19 01:29 Acyclovir 500 mg/ Dextrose 110 ml @ 110 mls/hr Q8H IV 08/25/19 17:00 09/24/19 16:59 08/26/19 17:00 Atropine Sulfate (Atropine) 1 mg DAILYPRN PRN IVP HEART BLOCK 08/25/19 19:31 09/24/19 19:30 Dextrose (Dextrose 50%) 25 ml Q30M PRN IV Hypoglycemia 08/25/19 00:45 09/24/19 00:44 Dextrose (Dextrose 50%) 50 ml Q30M PRN IV Hypoglycemia 08/25/19 00:45 09/24/19 00:44 Diltiazem HCl (Cardizem CD) 180 mg DAILY ORAL 08/25/19 13:00 09/24/19 12:59 08/26/19 09:41 Diphenhydramine HCl (Benadryl) 25 mg Q6H PRN IVP Itching 08/26/19 09:00 09/25/19 08:59 08/26/19 09:41 Docusate Sodium (Colace) 100 mg EVERY 12 HOURS ORAL 08/25/19 09:00 09/24/19 08:59 08/26/19 09:41 Insulin Aspart (NovoLOG) BEFORE MEALS AND HS SUBQ 08/25/19 16:30 09/24/19 16:29 08/26/19 16:30 Insulin Detemir (Levemir) 5 units QHS SUBQ 08/24/19 22:45 09/23/19 22:44 08/25/19 21:25 Morphine Sulfate (Morphine Sulfate) 2 mg Q4H PRN IVP Severe Pain (Pain Scale 7-10) 08/25/19 01:30 09/01/19 01:29 Moxifloxacin HCl (Vigamox) 2 drop Q2H RIGHT EYE 08/25/19 15:00 08/27/19 23:59 08/26/19 17:00 Moxifloxacin HCl (Vigamox) 2 drop Q4HR RIGHT EYE 08/28/19 01:00 09/02/19 23:59 Mycophenolate Mofetil (Cellcept) 1,000 mg TWICE A DAY ORAL 08/25/19 09:00 09/24/19 08:59 08/26/19 17:38 Ondansetron HCl (Zofran) 4 mg Q6H PRN IVP Nausea & Vomiting 08/24/19 22:30 09/23/19 22:29 Pantoprazole (Protonix) 40 mg DAILY ORAL 08/25/19 09:00 09/24/19 08:59 08/26/19 09:42 Prednisone (predniSONE) 5 mg DAILY ORAL 08/25/19 09:00 09/24/19 08:59 08/26/19 09:41 Sodium Chloride 1,000 ml @ 75 mls/hr [id number] IV 08/25/19 01:30 09/24/19 01:29 08/26/19 17:38 Juana Roach MD Aug 26, 2019 18:20
--- NOTE | 2019-08-26 19:39 | NUR ---
NURSE NOTES: Patient is awake and alert x4 ambulatory steady gait, Currently on airborne precautions for shingles. Papules/red rash noted throughout entire body, is crusting over. Pt is on room air, breathing unlabored and even. Only complaints are related to pain due to body covered in papules and vesicles, some itching, has benadryl IV ordered for itching. eyes have yellow exudate and are reddened, R eye is edematous, warm and partially closed. She is receiving eye drops q 2 hours
[2019-08-26 20:00] VITALS: BP 134/83
[2019-08-26] MEDS: Levemir Flexpen SUBQ SCH (21:24)
--- NOTE | 2019-08-26 23:15 | Consultation ---
DATE OF CONSULTATION: 08/26/2019 INFECTIOUS DISEASE CONSULTATION CONSULTING PHYSICIAN: Juana Roach M.D. ATTENDING PHYSICIAN: William Lyle M.D. REFERRING PHYSICIAN: Dr. Sydnee Erickson. REASON FOR CONSULTATION: Disseminated varicella virus infection. CHIEF COMPLAINT/REASON FOR ADMISSION: The patient's chief complaint coming in to the hospital is varicella virus infection dissemination. HISTORY OF PRESENT ILLNESS: This is a very pleasant 53-year-old, who has a history of renal transplant. The patient received MMR vaccine in late June. The patient presents to [facility] with Mobitz type 2 complete heart block. The patient has disseminated lesions consistent with what looks like varicella virus infection or dissemination. There is no obvious focal shingles seen on exam. Infectious Disease consultation is requested for management of this patient. The patient was started on intravenous acyclovir yesterday and is the day number 2. The lesions are not crusted at this time. The patient now is in air-borne isolation. The patient also, when I saw her yesterday, had draining from right eye, which is improved today on eyedrops and likely has bacterial conjunctivitis of the right eye. MAR was noted. Orders were noted. Notes were reviewed. REVIEW OF SYSTEMS: CONSTITUTIONAL: Main issue is the rash. She has no fevers. CARDIAC: No chest pain. GASTROINTESTINAL: No nausea, vomiting, or diarrhea. GENITOURINARY: No dysuria or frequency. PULMONARY: No shortness of breath. PAST MEDICAL HISTORY: The patient has a past medical history of the following. The patient has a history of renal transplant 5 years ago, history of diabetes type 2, history of Mobitz type 2 heart block, history of varicella and MMR July 18, 2019 per the records. No history of hypertension. He is on diltiazem, questionable history of hypertension also. ALLERGIES: No known drug allergies. SOCIAL HISTORY: Urine tox screen was positive for cocaine and THC. No alcohol or smoking mention to me. FAMILY HISTORY: Noncontributory. MEDICATIONS: Upon reviewing the MAR, she is on the following medications. She is on moxifloxacin eye drops in the right eye, diphenhydramine, atropine, acyclovir 500 mg intravenous every 8 hours, acyclovir dose based on weight, insulin, diltiazem, docusate, prednisone, pantoprazole, morphine, hydrocodone, insulin, acetaminophen, and Zofran. Outside medications were noted and reconciliated. PHYSICAL EXAM: VITAL SIGNS: Temp 99, pulse rate 70, respiratory rate 20, blood pressure 124/77, and saturation 98%. GENERAL: Alert and responsive, in no distress. HEAD AND NECK: Oral exam, no thrush. Eye exam, no icterus. Normocephalic. Neck is supple. Right eye has some redness, however, it is decreased with drainage. Neck is supple. No icterus. No thrush. HEART: Regular. No gallop or murmur. ABDOMEN: Soft. Positive bowel sounds. Nontender. LUNGS: Clear bilaterally. No rhonchi or rales. SKIN: She has maculopapular rash throughout mostly in the trunk and face with raised vesicular lesions noted. MUSCULOSKELETAL: No effusion or septic arthritis. Lower extremity without cellulitis. She has no cellulitis on exam. PERIPHERAL VASCULAR: No gangrene. GENITOURINARY: No [place]. LINE SITES: Without phlebitis. NEUROLOGIC: Intact, nonfocal, alert, and responsive. LABORATORY DATA: White count 4.1 and hemoglobin 15.7. Creatinine is 0.8. UA had 0 to 2 white cells. Chest x-ray showed no pneumonia, no acute cardiopulmonary disease. Chest x-ray, no acute disease. ASSESSMENT AND PLAN: 1. The patient has disseminated varicella zoster virus infection. The patient had recent immunization. He is immunocompromised. The recent immunization was MMR and varicella vaccine on July 18, 2019. As this patient is a renal transplant patient and again is immunosuppressed. At this time, I will continue intravenous acyclovir. This is day #2 of intravenous acyclovir for the disseminated varicella zoster virus infection or disseminated varicella infection. Monitor the patient's lesions. Continue airborne isolation and total lesions crusted over. Currently, she still has many lesions that are not crusted. Monitor creatinine closely on acyclovir. 2. Right eye drainage, most likely bacterial conjunctivitis seems to be improving on moxifloxacin eyedrops. 3. Renal transplant patient. 4. Diabetes. 5. Questionable hypertension. 6. Blood sugar treatment per primary care team for diabetes type 2. 7. Urine drug screen positive for cocaine and THC. 8. The patient is renal transplant patient and is immunocompromised. 9. Mobitz type 2 heart block. Treatment per Cardiology. 10. Continue treatment primary consultants. 11. No known drug allergies. 12. Social history looks like positive for THC and cocaine, but no history of smoking and alcohol per discussion with the patient. 13. Family history is noncontributory. 14. MAR is noted. 15. Case was discussed with RN. Juana Roach M.D. DR: CRISTIAN JOB#: [id number] CC:
[2019-08-26] MEDS ORDERED: LORazepam 1mg tab ORAL PRN (23:30)
--- NOTE | 2019-08-26 23:30 | Psych Consult Progress Note ---
Psychiatry Progress Note Psychiatry Progress Note Medications Current Medications Medications (Trade) Dose Ordered Sig/Karine Route PRN Reason Start Time Stop Time Status Last Admin Dose Admin Acetaminophen (Tylenol) 650 mg Q4H PRN ORAL Mild Pain (Pain Scale 1-3) 08/24/19 22:30 09/23/19 22:29 08/25/19 21:13 Acetaminophen (Tylenol) 650 mg Q4H PRN ORAL fever 08/24/19 22:30 09/23/19 22:29 Acetaminophen/ Hydrocodone Bitart ([place] 5/325) 1 tab Q6H PRN ORAL For Pain 08/25/19 01:30 09/01/19 01:29 Acyclovir 500 mg/ Dextrose 110 ml @ 110 mls/hr Q8H IV 08/25/19 17:00 09/24/19 16:59 08/26/19 17:00 Atropine Sulfate (Atropine) 1 mg DAILYPRN PRN IVP HEART BLOCK 08/25/19 19:31 09/24/19 19:30 Dextrose (Dextrose 50%) 25 ml Q30M PRN IV Hypoglycemia 08/25/19 00:45 09/24/19 00:44 Dextrose (Dextrose 50%) 50 ml Q30M PRN IV Hypoglycemia 08/25/19 00:45 09/24/19 00:44 Diltiazem HCl (Cardizem CD) 180 mg DAILY ORAL 08/25/19 13:00 09/24/19 12:59 08/26/19 09:41 Diphenhydramine HCl (Benadryl) 25 mg Q6H PRN IVP Itching 08/26/19 09:00 09/25/19 08:59 08/26/19 21:38 Docusate Sodium (Colace) 100 mg EVERY 12 HOURS ORAL 08/25/19 09:00 09/24/19 08:59 08/26/19 09:41 Insulin Aspart (NovoLOG) BEFORE MEALS AND HS SUBQ 08/25/19 16:30 09/24/19 16:29 08/26/19 16:30 Insulin Detemir (Levemir) 5 units QHS SUBQ 08/24/19 22:45 09/23/19 22:44 08/26/19 21:24 Morphine Sulfate (Morphine Sulfate) 2 mg Q4H PRN IVP Severe Pain (Pain Scale 7-10) 08/25/19 01:30 09/01/19 01:29 Moxifloxacin HCl (Vigamox) 2 drop Q2H RIGHT EYE 08/25/19 15:00 08/27/19 23:59 08/26/19 21:22 Moxifloxacin HCl (Vigamox) 2 drop Q4HR RIGHT EYE 08/28/19 01:00 09/02/19 23:59 Mycophenolate Mofetil (Cellcept) 1,000 mg TWICE A DAY ORAL 08/25/19 09:00 09/24/19 08:59 08/26/19 17:38 Ondansetron HCl (Zofran) 4 mg Q6H PRN IVP Nausea & Vomiting 08/24/19 22:30 09/23/19 22:29 Pantoprazole (Protonix) 40 mg DAILY ORAL 08/25/19 09:00 09/24/19 08:59 08/26/19 09:42 Prednisone (predniSONE) 5 mg DAILY ORAL 08/25/19 09:00 09/24/19 08:59 08/26/19 09:41 Sodium Chloride 1,000 ml @ 75 mls/hr [id number] IV 08/25/19 01:30 09/24/19 01:29 08/26/19 17:38 Neurological/Psychiatric: Reports: depressed, emotional problems, headache Allergies: Coded Allergies: No Known Allergies (Unverified , 10/21/17) Objective Data Height (Feet): 5 Height (Inches): 1.00 Weight (Pounds): 97 General Appearance: WD/WN, no apparent distress, alert Behavior Mannerisms: good eye contact Mental Status Exam - Affect: blunted Mental Status Exam - Mood: depressed Mental Status Exam - Thought P: goal-directed Additional Comments: alert, oriented to times self, place, and situation. Mood is anxious. Affect is constricted. Congruent with mood. Thought process is concrete. Thought content, no suicidal or homicidal ideation. Cognition is intact. Insight and judgment fair. ASSESSMENT: [place] I Anxiety disorder. Cocaine dependence versus abuse. PLAN: 1. Ativan p.r.n. 2. Mirtazapine. 3. Provide the patient with reality orientation and supportive therapy. 4. Continue to follow and readjust the medication. Assessment/Plan Status: stable Hilaria Meza MD Aug 26, 2019 23:30
[2019-08-27] VITALS: BP 124/74
[2019-08-27] MEDS: Vigamox Opth Soln 3ml RIGHT EYE SCH ×13 (00:28→23:00)
[2019-08-27] MEDS: Acyclovir 500 MG in D5W 110 ML IV SCH ×3 (00:28→17:54)
--- NOTE | 2019-08-27 02:24 | NUR ---
NURSE NOTES: Pt is complaining that she is having pain at rest - the bumps and new ones have erupted on her face and head and ear. One appears yellowish in the center on the right shoulder near the neck. Pt said it is so painful that she is unable to sleep. Going to give pain med.
--- NOTE | 2019-08-27 03:00 | NUR ---
NURSE NOTES: Once patient received pain medicine she was able to rest well. Observed sleeping quietly in bed. will continue to monitor
[2019-08-27 04:00] VITALS: BP 128/66
--- NOTE | 2019-08-27 06:00 | Consultation ---
DATE OF CONSULTATION: 08/26/2019 HISTORY OF PRESENT ILLNESS: The patient is a 53-year-old female with a history of multiple medical issues including diarrhea, cocaine abuse, dehydration, goiter, hyperglycemia, thrombocytopenia who has been admitted to the hospital for medical examination. The patient is presenting with depressed mood and anxiety. The patient is very irrational, poor insight into her mental or medical condition. The patient is having poor insight and needs to be redirected. The patient is having difficulty understanding the importance of her issues. PAST PSYCHIATRIC HISTORY: Anxiety disorder. PAST MEDICAL HISTORY: Diarrhea, dehydration, goiter, hyperglycemia, thrombocytopenia ALLERGIES: No known drug allergies. SUBSTANCE ABUSE HISTORY: Cocaine use. MENTAL STATUS EXAMINATION: The patient is alert, oriented to times self, place, and situation. Mood is anxious. Affect is constricted. Congruent with mood. Thought process is concrete. Thought content, no suicidal or homicidal ideation. Cognition is intact. Insight and judgment fair. ASSESSMENT: [place] I Anxiety disorder. Cocaine dependence versus abuse. [place] II Udall III Udall IV Udall V PLAN: 1. Ativan p.r.n. 2. Mirtazapine. 3. Provide the patient with reality orientation and supportive therapy. 4. Continue to follow and readjust the medication. Hilaria Meza M.D. DR: Paz JOB#: [id number] CC: [place]
[2019-08-27] MEDS: NovoLOG Insulin Flexpen SUBQ SCH ×4 (06:08→20:44)
--- NOTE | 2019-08-27 06:54 | NUR ---
HAND-OFF: Report given to AL Finn.
--- NOTE | 2019-08-27 07:30 | NUR ---
NURSE NOTES: Nurse report given by AL Santos. Patient's sitting in bed to eat breakfast, eyes open spontaneously, breathing regular and labored, AO x 4, denies pain. Bed low and locked, call light within reach, side rails x 2. Open sore wounds noted. IV is running fluid, no s/s of infiltration or tenderness. Will continue to monitor.
[2019-08-27 08:00] VITALS: BP 139/85
[2019-08-27] MEDS: DiphenhydrAMINE 50mg/ml Inj IVP PRN ×2 (09:28→17:54)
[2019-08-27] MEDS: Mycophenolate 250mg cap ORAL SCH (09:29)
[2019-08-27] MEDS: Docusate 100mg cap ORAL SCH ×2 (09:29→20:36)
[2019-08-27] MEDS: dilTIAZem HCl CD 180mg cap ORAL SCH (09:29)
--- NOTE | 2019-08-27 10:30 | Cardiology Progress Note ---
Assessment/Plan Status: stable Assessment/Plan Assessment/Plan Assessment/Plan: 53-year-old AAF with PMH of renal transplant 5 years ago, DM type II, who presented to the ED for rash that began 6 days ago. Cardiology consulted for heart block MOBITZ II Continue to monitor on telemetry Patient having premature atrial contracts that are blocked, avoid vagal manuvers , no indication for pacemaker D/c with ziopatch Echocardiogram pending Replete electrolytes Caution with atropine in case of infra alejo heart block which will worsen conduction Aggressive glucose control as hyperglycemia can damage conduction system Recommend psych consult for medication compliance Subjective Cardiovascular: Reports: no symptoms Respiratory: Reports: no symptoms Gastrointestinal/Abdominal: Reports: no symptoms Genitourinary: Reports: no symptoms Subjective No acute events, complains of rash and itching, monitor shows lots of PACS, no blocks Objective Last 24 Hour Vital Signs Date Time Temp Pulse Resp B/P (MAP) Pulse Ox O2 Delivery O2 Flow Rate FiO2 08/27/19 09:29 108 139/85 08/27/19 09:00 Room Air 08/27/19 08:00 97.6 108 20 139/85 (103) 99 08/27/19 08:00 86 08/27/19 04:00 80 08/27/19 04:00 98.2 107 18 128/66 (86) 96 08/27/19 00:00 99.5 71 18 124/74 (91) 94 08/27/19 00:00 72 08/26/19 21:00 Room Air 08/26/19 20:00 86 08/26/19 20:00 98.2 75 18 134/83 (100) 99 08/26/19 16:00 77 08/26/19 16:00 99.0 70 20 124/77 (93) 98 08/26/19 12:00 94 08/26/19 12:00 98.4 89 20 118/62 (80) 99 General Appearance: no apparent distress, alert EENT: PERRL/EOMI, normal ENT inspection, TMs normal, pharynx normal Neck: non-tender, normal alignment, supple, normal inspection, no JVD Rhythm: NSR, PACs Cardiovascular: normal peripheral pulses, normal rate, regularly irregular Respiratory/Chest: chest wall non-tender, lungs clear, normal breath sounds Abdomen: normal bowel sounds, non tender, soft, no organomegaly Extremities: normal range of motion, non-tender, normal inspection 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
--- NOTE | 2019-08-27 10:45 | NUR ---
CASE MANAGEMENT:REVIEW 08/27/19 SI: DISSEMINATED VARICELLA MOBITZ TYPE II. CONJUNCTIVITIS 99.5 108 20 139/85 99% ON RA PLT-33 IS: VIGAMOX RT EYE Q4HRS IV ACYCLOVIR Q8HRS IVF@75/HR CARDIZEM PO QD CELLCEPT PO BID PREDNISONE PO QD PROTONIX PO QD : TELEMETRY STATUS DCP: FROM HOME Addendum: 08/27/19 at 1057 by ALISA LUGO LVN LVN PLAN: WE HAVE AN ORDER TO TRANSFER THIS PATIENT TO [facility] IS REQUESTING AUTHORIZATION TO TRANSFER MESSAGE LEFT FOR LIZBETH ZAMORA REQUESTING ASSISTANCE WITH AUTHORIZATION
--- NOTE | 2019-08-27 11:28 | NUR ---
TRANSFER UPDATE TO [facility] SEVERAL MESSAGES HAVE BEEN LEFT FOR THE HEALTH PLAN REQUESTING AUTHORIZATION FOR TRANSFER NO RESPONSE OF YET
[2019-08-27 12:00] VITALS: BP 119/75
--- NOTE | 2019-08-27 12:10 | NUR ---
NURSE NOTES: Discovered patient has a bag of medications with unknown prescription names. Patient would not let nurse to check what kinds of the medication she has in the bag and would not let nurse give them to pharmacy to keep in safe. Patient said: "do not touch my bag." Notified charge nurse Natasha and Nurse supervisor estimator and drafter, Komal. Will notify primary MD regarding the situation.
--- NOTE | 2019-08-27 12:19 | General Progress Note ---
Assessment/Plan Status: stable Assessment/Plan: 53-year-old AAF with PMH of renal transplant 5 years ago, DM type II, who presented to the ED for rash Pt believes this developed as a side effect after recieving the MMR vaccine in late June. On admission patient was found to be in Mobitz type II. Rashes were concerning for disseminated varicella for which patient was admitted for further treatment and evaluation. #Disseminated varicella Continue inpatient medical care Cont. IV Valacyclovir 500 BID IV IV Benadryl for pruritic Air borne precautions ID following Cleared by Ophthalmology #Mobitz Type II Seen on EKG on admission pt denies any CP, SOB, palpitations U tox positive for cocaine and cannabis Cardio, Dr. Tristan following No indication for PPM at this time #Acute bacterial conjunctivitis, right eye Started moxifloxacin eye drops #h/o renal transplant pt pending transfer to [facility] for further evaluation and work up, sign out given to accepting MD stop mycophenolate start Prograf 1 mg bid, check levels in AM #H/o medical non-compliance #Irrational behavior Urine tox positive for THC and cocaine psych following #Diabetes type 2 #Non-compliance #Hyperglycemia obtain A1C ISS, FSBS, insuin 5 U qHS #Hypomagnesemia Replace Continue to monitor, replace as needed DVT PPx: lovenox Time spent on encounter: 35 mins, >50% on pt counseling, coordination of care. Subjective Date patient seen: Aug 27, 2019 Time patient seen: 11:49 Constitutional: Denies: chills, fever HEENT: Denies: eye pain, blurred vision, tearing Cardiovascular: Denies: chest pain, edema Respiratory: Denies: cough, orthopnea Gastrointestinal/Abdominal: Denies: abdominal pain Genitourinary: Denies: burning Neurologic/Psychiatric: Denies: anxiety Allergies: Coded Allergies: No Known Allergies (Unverified , 10/21/17) Subjective Follow up for disseminated VZV infection No new complaints, lesions startting to crust over Spoke with accepting MD at [facility] on 08/25 Objective Last 24 Hour Vital Signs Date Time Temp Pulse Resp B/P (MAP) Pulse Ox O2 Delivery O2 Flow Rate FiO2 08/27/19 09:29 108 139/85 08/27/19 09:00 Room Air 08/27/19 08:00 97.6 108 20 139/85 (103) 99 08/27/19 08:00 86 08/27/19 04:00 80 08/27/19 04:00 98.2 107 18 128/66 (86) 96 08/27/19 00:00 99.5 71 18 124/74 (91) 94 08/27/19 00:00 72 08/26/19 21:00 Room Air 08/26/19 20:00 86 08/26/19 20:00 98.2 75 18 134/83 (100) 99 08/26/19 16:00 77 08/26/19 16:00 99.0 70 20 124/77 (93) 98 Intake and Output 08/26/19 08/27/19 19:00 07:00 Intake Total 400 ml Balance 400 ml Intake Oral 400 ml # Voids 3 4 Height (Feet): 5 Height (Inches): 1.00 Weight (Pounds): 97 General Appearance: no apparent distress, alert Neck: normal alignment, supple Cardiovascular: normal rate, regular rhythm Respiratory/Chest: lungs clear, normal breath sounds Abdomen: non tender, soft Ashvin Pacheco MD Aug 27, 2019 12:19
--- NOTE | 2019-08-27 15:00 | NUR ---
NURSE NOTES: Patient has been adamant of staying inside the isolation room, trying to step out the room multiples times. Nurse explained patient cannot leave the room due to her condition, patient got agitated and furious, stated: '' I want to leave. You cannot capture me and telling me not to get out. You don't have to explain to me multiple times." Nurse explained to her that nurse have to explain to her multiple times because patient did not follow command. Patient still refused to give nurse her home medication that she kept in the drawer. Left message to Dr. Brannon regarding the situation.
--- NOTE | 2019-08-27 15:27 | NUR ---
NURSE NOTES: Spoke to Dr. Zaldivar regarding clarification on patient's new medication Tacrolimus. Patient complained that patient has been taking more than 1mg of the medication and twice a day. Dr Zaldivar ordered only 1mg and MD stated it's from Hal[employer] Machine Operator MD's order. Nurse checked medication reconciliation history, it does not state patient takes the medication more than 1mg. No new order at this time.
[2019-08-27 16:00] VITALS: BP 118/92
--- NOTE | 2019-08-27 16:16 | NUR ---
*-* INSURANCE *-* ALL CLINICALS AND REVIEWS HAVE BEEN FAXED TO: [facility] P: [phone] F: [phone] [facility] AUTH# [id number] FAX ALL CLINICALS TO [phone]
--- NOTE | 2019-08-27 16:48 | NUR ---
NURSE NOTES: Patient wants to leave AMA. Spoke to Dr. Hallman regarding the situation and stated he will call the infection control department regarding the situation. However, stated he thinks patient can leave AMA d/t patient has different isolation, it is not tuberculosis so thinks chickenpox will be minor and she will be fine to leave AMA if she wishes. stated he will call back for the infection department update. Awaiting for response.
--- NOTE | 2019-08-27 17:20 | NUR ---
NURSE NOTES: Spoke to the patient and told the risk of leaving AMA. Told patient to ask family member to bring her home prescribed Tacrolimus to the hospital to compare the dosage. Patient agreed to stay, and not leaving AMA. Awaiting for the son for update.
--- NOTE | 2019-08-27 18:00 | NUR ---
NURSE NOTES: Patient's son brought the home medication, nurse explained patient MD decided to lower the dosage for the patient. Gave MD's business phone call for the patient to get in touch with the doctor. Patient agreed to continue to stay in the hospital and verbally acknowledged that she will not leave the room to wonder. Will continue to monitor.
--- NOTE | 2019-08-27 19:00 | NUR ---
HAND-OFF: Report given to AL Duncan. Patient's stable, plan of care endorsed.
--- NOTE | 2019-08-27 19:54 | NUR ---
NURSE NOTES: Received patient from AL Finn. Patient is awake, alert and talkative. Bed in lowest position. Call light within reach. Will continue to monitor.
[2019-08-27] MEDS: Levemir Flexpen SUBQ SCH (20:44)
[2019-08-28] VITALS: BP 150/113
--- NOTE | 2019-08-28 00:47 | NUR ---
NURSE NOTES: Called and left a message with Dr. [facility] regarding her Tacrolimus dosage. Awaiting call back.
--- NOTE | 2019-08-28 00:55 | NUR ---
NURSE NOTES: Covering physician called back with no new orders. Will endorse to AM shift regarding medication dosage.
[2019-08-28] MEDS: Vigamox Opth Soln 3ml RIGHT EYE SCH ×6 (01:00→21:29)
[2019-08-28] MEDS: Acyclovir 500 MG in D5W 110 ML IV SCH ×3 (01:23→17:04)
--- NOTE | 2019-08-28 03:30 | Progress Note ---
DATE: 08/24/2019 NOTE: INCOMPLETE DICTATION SUBJECTIVE: The patient is in bed and is arousable, able to answer the questions. The patient is talkative, is responsive. The patient is asking to be discharged. She is able to understand, process, communicate rationally. The patient MENTAL STATUS EXAMINATION: The patient is alert and oriented times self, place, and situation. Mood is anxious. Affect is constricted. Thought process is concrete. Thought content, no suicidal or homicidal ideation. Hilaria Meza M.D. DR: Cesilia JOB#: [id number] CC: [place]
[2019-08-28 04:26] VITALS: BP 126/82
[2019-08-28] MEDS: NovoLOG Insulin Flexpen SUBQ SCH ×4 (06:18→21:31)
--- NOTE | 2019-08-28 06:51 | NUR ---
NURSE NOTES: Called and left a message with the covering physician regarding patient's left eye. He ordered for eyedrops to also be used on the left eye.
[2019-08-28 07:25] LABS: HEMATOCRIT 41.1 % (37.0-47.0); HEMOGLOBIN 14.2 G/DL (12.0-16.0); MEAN CORPUSCULAR VOLUME 88 FL (80-99); PLATELET COUNT 37 K/UL (150-450); RED BLOOD COUNT 4.69 M/UL (4.20-5.40); RED CELL DISTRIBUTION WIDTH 10.9 % (11.6-14.8)
--- NOTE | 2019-08-28 07:35 | NUR ---
HAND-OFF: Report given to AL Lynn. Patient stable.
[2019-08-28 07:40] LABS: ANION GAP 11 mmol/L (5-15); BLOOD UREA NITROGEN 5 mg/dL (7-18); CALCIUM 8.8 MG/DL (8.5-10.1); CARBON DIOXIDE 26 MMOL/L (21-32); CHLORIDE 100 MMOL/L (98-107); CREATININE 0.6 MG/DL (0.55-1.30); POTASSIUM 3.2 MMOL/L (3.5-5.1); SODIUM 137 MMOL/L (136-145)
--- NOTE | 2019-08-28 07:40 | NUR ---
NURSE NOTES: Received report from AL Duncan. Patient is on bed alert, awake and oriented x 4. On room air, opn regular diet-instructed. No acute distress nor shortness of breath noted. Breathing unlabored and even. Able to make need know. Denies pain at this time. Patient has right forearm G-20 NS @ 75cc/hour, no bleeding nor infiltration noted. Bed in low position and locked. Bed alarm engaged. Side rails up x 2. Call light within reach, encouraged to use call light when needed. Will continue plan of care.
[2019-08-28 08:00] VITALS: BP 142/85
--- NOTE | 2019-08-28 09:06 | Cardiology Progress Note ---
Assessment/Plan Status: doing well, stable Assessment/Plan Assessment/Plan Assessment/Plan: 53-year-old AAF with PMH of renal transplant 5 years ago, DM type II, who presented to the ED for rash that began 6 days ago. Cardiology consulted for heart block MOBITZ II Continue to monitor on telemetry Patient having premature atrial contracts that are blocked, avoid vagal manuvers , no indication for pacemaker D/c with ziopatch Echocardiogram pending Replete electrolytes Caution with atropine in case of infra alejo heart block which will worsen conduction Aggressive glucose control as hyperglycemia can damage conduction system psych consult for medication compliance Subjective Cardiovascular: Reports: no symptoms Respiratory: Reports: no symptoms Gastrointestinal/Abdominal: Reports: no symptoms Genitourinary: Reports: no symptoms Subjective No acute events, complains of rash and itching, monitor shows lots of PACS, no blocks Patient wants to leave AMA She complains of diffuse pain and rash still. She wants pain medicine Objective Last 24 Hour Vital Signs Date Time Temp Pulse Resp B/P (MAP) Pulse Ox O2 Delivery O2 Flow Rate FiO2 08/28/19 04:26 99.7 90 20 126/82 (97) 90 08/28/19 04:00 98 08/28/19 00:00 99.7 90 20 150/113 (125) 97 08/28/19 00:00 80 08/27/19 21:00 Room Air 08/27/19 20:00 69 08/27/19 16:00 79 08/27/19 16:00 98.6 76 20 118/92 (101) 100 08/27/19 12:00 98.4 74 18 119/75 (90) 98 08/27/19 12:00 88 08/27/19 09:29 108 139/85 General Appearance: no apparent distress, alert EENT: PERRL/EOMI, normal ENT inspection, TMs normal, pharynx normal Neck: non-tender, normal alignment, supple Rhythm: NSR Cardiovascular: normal peripheral pulses, normal rate, regular rhythm Respiratory/Chest: chest wall non-tender, lungs clear, normal breath sounds, no respiratory distress, no accessory muscle use, respiratory distress Abdomen: normal bowel sounds, non tender, soft, no organomegaly, no mass Extremities: normal range of motion, non-tender, normal inspection, no calf tenderness, no swelling 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, no motor/sensory deficits Intake and Output 08/27/19 08/28/19 19:00 07:00 Intake Total 480 ml Balance 480 ml Intake Oral 480 ml # Voids 2 4 Laboratory Tests Test 08/28/19 06:46 White Blood Count 5.0 K/UL (4.8-10.8) Red Blood Count 4.69 M/UL (4.20-5.40) Hemoglobin 14.2 G/DL (12.0-16.0) Hematocrit 41.1 % (37.0-47.0) Mean Corpuscular Volume 88 FL (80-99) Mean Corpuscular Hemoglobin 30.2 PG (27.0-31.0) Mean Corpuscular Hemoglobin Concent 34.5 G/DL (32.0-36.0) Red Cell Distribution Width 10.9 % (11.6-14.8) L Platelet Count 37 K/UL (150-450) L Mean Platelet Volume 15.4 FL (6.5-10.1) H Neutrophils (%) (Auto) % (45.0-75.0) Lymphocytes (%) (Auto) % (20.0-45.0) Monocytes (%) (Auto) % (1.0-10.0) Eosinophils (%) (Auto) % (0.0-3.0) Basophils (%) (Auto) % (0.0-2.0) Neutrophils % (Manual) Pending Lymphocytes % (Manual) Pending Platelet Estimate Pending Platelet Morphology Pending Sodium Level 137 MMOL/L (136-145) Potassium Level 3.2 MMOL/L (3.5-5.1) L Chloride Level 100 MMOL/L (98-107) Carbon Dioxide Level 26 MMOL/L (21-32) Anion Gap 11 mmol/L (5-15) Blood Urea Nitrogen 5 mg/dL (7-18) L Creatinine 0.6 MG/DL (0.55-1.30) Estimat Glomerular Filtration Rate > 60 mL/min (>60) Glucose Level 209 MG/DL (74-106) H Calcium Level 8.8 MG/DL (8.5-10.1) Tacrolimus (Prograf) Level Pending Sumit Tristan MD Aug 28, 2019 09:06
[2019-08-28] MEDS: dilTIAZem HCl CD 180mg cap ORAL SCH (09:23)
[2019-08-28] MEDS: Docusate 100mg cap ORAL SCH ×2 (09:24→21:29)
[2019-08-28] MEDS: DiphenhydrAMINE 50mg/ml Inj IVP PRN (09:43)
--- NOTE | 2019-08-28 10:11 | NUR ---
NURSE NOTES: Patient was asking about her cellcept mediaction during medpast. Medication was discontinued yesterday. Call placed to Dr. Ortega, awaiting for callback.
--- NOTE | 2019-08-28 10:41 | General Progress Note ---
Assessment/Plan Status: doing well, stable Assessment/Plan: 53-year-old AAF with PMH of renal transplant 5 years ago, DM type II, who presented to the ED for rash Pt believes this developed as a side effect after recieving the MMR vaccine in late June. On admission patient was found to be in Mobitz type II. Rashes were concerning for disseminated varicella for which patient was admitted for further treatment and evaluation. #Disseminated varicella Continue inpatient medical care Cont. IV Valacyclovir 500 BID IV IV Benadryl for pruritis Air borne precautions ID following Cleared by Ophthalmology #Mobitz Type II Seen on EKG on admission pt denies any CP, SOB, palpitations U tox positive for cocaine and cannabis Cardio, Dr. Tristan following No indication for PPM at this time #Acute bacterial conjunctivitis, right eye cont moxifloxacin eye drops #h/o renal transplant pt pending transfer to [facility] for further evaluation and work up, sign out given to accepting MD stop mycophenolate start Prograf 1 mg bid, levels pending todat Nephrology recs appreciated #Hypokalemia -replace with oral KCl -monitor BMP #H/o medical non-compliance #Irrational behavior Urine tox positive for THC and cocaine psych following #Diabetes type 2 #Non-compliance #Hyperglycemia obtain A1C ISS, FSBS, insuin 5 U qHS #Hypomagnesemia Replace Continue to monitor, replace as needed DVT PPx: lovenox Time spent on encounter: 35 mins, >50% on pt counseling, coordination of care. Subjective Date patient seen: Aug 28, 2019 Time patient seen: 08:00 ROS Limited/Unobtainable: No Constitutional: Denies: chills, fever HEENT: Denies: eye pain, blurred vision Cardiovascular: Denies: chest pain, edema Respiratory: Denies: cough, orthopnea Gastrointestinal/Abdominal: Denies: abdomen distended, abdominal pain Neurologic/Psychiatric: Denies: anxiety Allergies: Coded Allergies: No Known Allergies (Unverified , 10/21/17) Subjective Follow up for disseminated VZV infection No new complaints, lesions starting to crust over Prograf level pending for today Objective Last 24 Hour Vital Signs Date Time Temp Pulse Resp B/P (MAP) Pulse Ox O2 Delivery O2 Flow Rate FiO2 08/28/19 09:23 77 142/85 08/28/19 08:00 99.9 77 18 142/85 (104) 98 08/28/19 08:00 76 08/28/19 04:26 99.7 90 20 126/82 (97) 90 08/28/19 04:00 98 08/28/19 00:00 99.7 90 20 150/113 (125) 97 08/28/19 00:00 80 08/27/19 21:00 Room Air 08/27/19 20:00 69 08/27/19 16:00 79 08/27/19 16:00 98.6 76 20 118/92 (101) 100 08/27/19 12:00 98.4 74 18 119/75 (90) 98 08/27/19 12:00 88 Intake and Output 08/27/19 08/28/19 19:00 07:00 Intake Total 480 ml Balance 480 ml Intake Oral 480 ml # Voids 2 4 Laboratory Tests 08/28/19 06:46: White Blood Count 5.0, Red Blood Count 4.69, Hemoglobin 14.2, Hematocrit 41.1, Mean Corpuscular Volume 88, Mean Corpuscular Hemoglobin 30.2, Mean Corpuscular Hemoglobin Concent 34.5, Red Cell Distribution Width 10.9L, Platelet Count 37L, Mean Platelet Volume 15.4H, Neutrophils (%) (Auto) , Lymphocytes (%) (Auto) , Monocytes (%) (Auto) , Eosinophils (%) (Auto) , Basophils (%) (Auto) , Neutrophils % (Manual) [Pending], Lymphocytes % (Manual) [Pending], Platelet Estimate [Pending], Platelet Morphology [Pending], Sodium Level 137, Potassium Level 3.2L, Chloride Level 100, Carbon Dioxide Level 26, Anion Gap 11, Blood Urea Nitrogen 5L, Creatinine 0.6, Estimat Glomerular Filtration Rate > 60, Glucose Level 209H, Calcium Level 8.8, Tacrolimus (Prograf) Level [Pending] Height (Feet): 5 Height (Inches): 1.00 Weight (Pounds): 93 General Appearance: no apparent distress, alert Neck: normal alignment, supple Cardiovascular: normal rate, regular rhythm Respiratory/Chest: lungs clear, normal breath sounds, no respiratory distress Skin: other - Multiple crusted lesions Ashvin Pacheco MD Aug 28, 2019 10:41
--- NOTE | 2019-08-28 10:45 | NUR ---
NURSE NOTES: spoke with Dr. Zaldivar regarding the discontinuation of Cellcept. Per med was dcd per Gallery Or Museum Curator (Dr. Rain) Call out to MD. Awaiting call back. Will follow.
[2019-08-28 12:00] VITALS: BP 128/85
--- NOTE | 2019-08-28 13:00 | NUR ---
NURSE NOTES: Dr. Allan was on the floor, Charge nurse Daya him about patient but MD said Mr. Mora is not his patient. Message left to Dr. Zaldivar. Awaiting call back. Will follow.
--- NOTE | 2019-08-28 13:33 | NUR ---
*-* INSURANCE *-* ALL CLINICALS AND REVIEWS HAVE BEEN FAXED TO: [facility] P: [phone] F: [phone] [facility] AUTH# [id number] FAX ALL CLINICALS TO [phone]
--- NOTE | 2019-08-28 14:53 | NUR ---
CASE MANAGEMENT:REVIEW 08/27/19 SI: DISSEMINATED VARICELLA MOBITZ TYPE II. CONJUNCTIVITIS 99.9 77 18 142/85 98% ON RA PLT-37 IS: VIGAMOX RT EYE Q4HRS IV ACYCLOVIR Q8HRS IVF@75/HR CARDIZEM PO QD PROGRAF PO Q12 PREDNISONE PO QD PROTONIX PO QD : TELEMETRY STATUS DCP: FROM HOME Addendum: 08/27/19 at 1057 by ALISA LUGO LVN LVN PLAN: TRANSFER ORDER TO [facility] WAS CANCELLED LATE YESTERDAY BY OUR ADMITTING PHYSICIAN, DR BECK Addendum: 08/29/19 at 1436 by ALISA LUGO LVN LVN ABOVE REVIEW FOR 08/28/19
[2019-08-28 16:00] VITALS: BP 111/69
--- NOTE | 2019-08-28 16:25 | Infectious Diseases Prog Note ---
Assessment/Plan Assessment/Plan ASSESSMENT AND PLAN: 1. disseminated varicella virus infection, low grade temperatures, airborne isolation - iv acyclovir - day # 4 - lesions crusting more - can remove isolation once all lesions crusted over - monitor low grade temperatures - monitor labs 2. Right eye conjunctivitis - less drainage, cleared by ophthalmology 3. Renal transplant patient. 4. Diabetes. 5. Questionable hypertension. 6. Blood sugar treatment per primary care team for diabetes type 2. 7. Urine drug screen positive for cocaine and THC. 8. The patient is renal transplant patient and is immunocompromised. 9. Mobitz type 2 heart block. Treatment per Cardiology. 10. Continue treatment primary consultants. 11. No known drug allergies. 12. Social history looks like positive for THC and cocaine, but no history of smoking and alcohol per discussion with the patient. 13. Family history is noncontributory. 14. MAR is noted. 15. Case was discussed with RN. Subjective Constitutional: Reports: fever - low grade temps , fatigue HEENT: Denies: congestion Respiratory: Denies: shortness of breath Cardiovascular: Denies: chest pain Gastrointestinal/Abdominal: Denies: nausea, vomiting, diarrhea Neurologic: Denies: headache Psychiatric: Reports: anxiety; Denies: depression Skin: Reports: rash Hematologic: Denies: bleeding Musculoskeletal: Denies: pain Allergies: Coded Allergies: No Known Allergies (Unverified , 10/21/17) Objective Vital Signs Last 24 Hour Vital Signs Date Time Temp Pulse Resp B/P (MAP) Pulse Ox O2 Delivery O2 Flow Rate FiO2 08/28/19 12:00 98 08/28/19 12:00 99.5 94 18 128/85 (99) 96 08/28/19 09:23 77 142/85 08/28/19 09:00 Room Air 08/28/19 08:00 99.9 77 18 142/85 (104) 98 08/28/19 08:00 76 08/28/19 04:26 99.7 90 20 126/82 (97) 90 08/28/19 04:00 98 08/28/19 00:00 99.7 90 20 150/113 (125) 97 08/28/19 00:00 80 08/27/19 21:00 Room Air 08/27/19 20:00 69 Height (Feet): 5 Height (Inches): 1.00 Weight (Pounds): 93 General Appearance: no acute distress HEENT: normocephalic, atraumatic, anicteric, mucous membranes moist Respiratory/Chest: lungs clear, normal breath sounds, no respiratory distress, no accessory muscle use Cardiovascular: normal peripheral pulses, normal rate, regular rhythm, no gallop/murmur, no JVD Abdomen: normal bowel sounds, soft, non tender, no organomegaly, non distended Genitourinary: other - no forte Extremities: no cyanosis Skin: rash, lesions - crusting Neurologic/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 COMPARISON: No relevant prior studies available. FINDINGS: Lungs: No consolidation. Pleural space: Unremarkable. No pneumothorax. Heart: Unremarkable. No cardiomegaly. Mediastinum: Unremarkable. Bones/joints: No acute fracture. IMPRESSION: No acute cardiopulmonary disease. none Laboratory Tests Test 08/28/19 06:46 White Blood Count 5.0 K/UL (4.8-10.8) Red Blood Count 4.69 M/UL (4.20-5.40) Hemoglobin 14.2 G/DL (12.0-16.0) Hematocrit 41.1 % (37.0-47.0) Mean Corpuscular Volume 88 FL (80-99) Mean Corpuscular Hemoglobin 30.2 PG (27.0-31.0) Mean Corpuscular Hemoglobin Concent 34.5 G/DL (32.0-36.0) Red Cell Distribution Width 10.9 % (11.6-14.8) L Platelet Count 37 K/UL (150-450) L Mean Platelet Volume 15.4 FL (6.5-10.1) H Neutrophils (%) (Auto) % (45.0-75.0) Lymphocytes (%) (Auto) % (20.0-45.0) Monocytes (%) (Auto) % (1.0-10.0) Eosinophils (%) (Auto) % (0.0-3.0) Basophils (%) (Auto) % (0.0-2.0) Differential Total Cells Counted 100 Neutrophils % (Manual) 73 % (45-75) Lymphocytes % (Manual) 16 % (20-45) L Monocytes % (Manual) 9 % (1-10) Eosinophils % (Manual) 2 % (0-3) Basophils % (Manual) 0 % (0-2) Band Neutrophils 0 % (0-8) Platelet Estimate Decreased L Platelet Morphology Normal Red Blood Cell Morphology Normal Sodium Level 137 MMOL/L (136-145) Potassium Level 3.2 MMOL/L (3.5-5.1) L Chloride Level 100 MMOL/L (98-107) Carbon Dioxide Level 26 MMOL/L (21-32) Anion Gap 11 mmol/L (5-15) Blood Urea Nitrogen 5 mg/dL (7-18) L Creatinine 0.6 MG/DL (0.55-1.30) Estimat Glomerular Filtration Rate > 60 mL/min (>60) Glucose Level 209 MG/DL (74-106) H Calcium Level 8.8 MG/DL (8.5-10.1) Tacrolimus (Prograf) Level Pending Current Medications Medications (Trade) Dose Ordered Sig/Karine Route PRN Reason Start Time Stop Time Status Last Admin Dose Admin Acetaminophen (Tylenol) 650 mg Q4H PRN ORAL Mild Pain (Pain Scale 1-3) 08/24/19 22:30 09/23/19 22:29 08/25/19 21:13 Acetaminophen (Tylenol) 650 mg Q4H PRN ORAL fever 08/24/19 22:30 09/23/19 22:29 Acetaminophen/ Hydrocodone Bitart ([place] 5/325) 1 tab Q6H PRN ORAL For Pain 08/25/19 01:30 09/01/19 01:29 Acyclovir 500 mg/ Dextrose 110 ml @ 110 mls/hr Q8H IV 08/25/19 17:00 09/24/19 16:59 08/28/19 09:24 Atropine Sulfate (Atropine) 1 mg DAILYPRN PRN IVP HEART BLOCK 08/25/19 19:31 09/24/19 19:30 Dextrose (Dextrose 50%) 25 ml Q30M PRN IV Hypoglycemia 08/25/19 00:45 09/24/19 00:44 Dextrose (Dextrose 50%) 50 ml Q30M PRN IV Hypoglycemia 08/25/19 00:45 09/24/19 00:44 Diltiazem HCl (Cardizem CD) 180 mg DAILY ORAL 08/25/19 13:00 09/24/19 12:59 08/28/19 09:23 Diphenhydramine HCl (Benadryl) 25 mg Q6H PRN IVP Itching 08/26/19 09:00 09/25/19 08:59 08/28/19 09:43 Docusate Sodium (Colace) 100 mg EVERY 12 HOURS ORAL 08/25/19 09:00 09/24/19 08:59 08/28/19 09:24 Insulin Aspart (NovoLOG) BEFORE MEALS AND HS SUBQ 08/25/19 16:30 09/24/19 16:29 08/28/19 12:15 Insulin Detemir (Levemir) 5 units QHS SUBQ 08/24/19 22:45 09/23/19 22:44 08/27/19 20:44 Lorazepam (Ativan) 1 mg Q6H PRN ORAL For Anxiety 08/26/19 23:30 09/02/19 23:29 Mirtazapine (Remeron) 7.5 mg BEDTIME PRN ORAL insomnia 08/27/19 21:00 09/26/19 20:59 Morphine Sulfate (Morphine Sulfate) 2 mg Q4H PRN IVP Severe Pain (Pain Scale 7-10) 08/25/19 01:30 09/01/19 01:29 08/27/19 02:13 Moxifloxacin HCl (Vigamox) 2 drop Q4HR RIGHT EYE 08/28/19 01:00 09/02/19 23:59 08/28/19 13:18 Ondansetron HCl (Zofran) 4 mg Q6H PRN IVP Nausea & Vomiting 08/24/19 22:30 09/23/19 22:29 Pantoprazole (Protonix) 40 mg DAILY ORAL 08/25/19 09:00 09/24/19 08:59 08/28/19 09:24 Prednisone (predniSONE) 5 mg DAILY ORAL 08/25/19 09:00 09/24/19 08:59 08/28/19 09:24 Sodium Chloride 1,000 ml @ 75 mls/hr [id number] IV 08/25/19 01:30 09/24/19 01:29 08/28/19 09:54 Tacrolimus (Prograf) 1 mg EVERY 12 HOURS ORAL 08/27/19 12:20 09/26/19 12:19 08/28/19 09:23 Juana Roach MD Aug 28, 2019 16:25
[2019-08-28] MEDS ORDERED: Oseltamivir 75mg cap ORAL SCH (18:00)
[2019-08-28] MEDS ORDERED: Vancomycin 1gm/D5W 275ml IVPB ONE ×2 (18:30)
--- NOTE | 2019-08-28 18:42 | NUR ---
influenza a&b swab was collected and sent to lab. Awaiting for results.
--- NOTE | 2019-08-28 19:35 | NUR ---
NURSE NOTES: Received report from AL Lynn. Patient is in bed, awake, alert, and responsive. Breathing regular and unlabored with no SOB noted. Patient denies any pain or discomfort at this time. IV access patent, intact, running ATB as prescribed. Urinalysis sent to lab by morning RN. Bed remains in lowest position, breaks engaged, and call light is within reach at all times. All other needs attended to, patient remains stable, will continue to monitor.
--- NOTE | 2019-08-28 19:47 | NUR ---
NURSE NOTES: Report given to AL Espinoza. Patient is on bed, no complaints made. Plan of care discussed.
[2019-08-28 20:00] VITALS: BP 101/43
[2019-08-28 20:51] LABS: APPEARANCE,URINE CLEAR; BILIRUBIN, URINE NEGATIVE (NEGATIVE); GLUCOSE, URINE (UA) 2+ (NEGATIVE); KETONES,URINE NEGATIVE (NEGATIVE); LEUKOCYTE ESTERASE ,URINE NEGATIVE (NEGATIVE); NITRITE,URINE NEGATIVE (NEGATIVE); PH,URINE 7 (4.5-8.0); PROTEIN,URINE NEGATIVE (NEGATIVE); UROBILINOGEN,URINE 1 MG/DL (0.0-1.0)
[2019-08-28 20:55] LABS: COLOR,URINE YELLOW
[2019-08-28] MEDS: Levemir Flexpen SUBQ SCH (21:00)
--- NOTE | 2019-08-28 22:55 | NUR ---
NURSE NOTES: Patient refuses to allow the nurse to adjust her desk monitor leads stating that "I will do them, i know how, don't touch me." Reminded the patient that she is on a cardiac monitoring unit and that we need to be able to always see her rhythm on the monitor. Patient adjusted her leads herself. Checked with the desk monitor, and patient was on the monitor. Will continue to monitor.
--- NOTE | 2019-08-28 23:59 | Psych Consult Progress Note ---
Psychiatry Progress Note Psychiatry Progress Note Medications Current Medications Medications (Trade) Dose Ordered Sig/Karine Route PRN Reason Start Time Stop Time Status Last Admin Dose Admin Acetaminophen (Tylenol) 650 mg Q4H PRN ORAL Mild Pain (Pain Scale 1-3) 08/24/19 22:30 09/23/19 22:29 08/28/19 17:05 Acetaminophen (Tylenol) 650 mg Q4H PRN ORAL fever 08/24/19 22:30 09/23/19 22:29 Acetaminophen/ Hydrocodone Bitart ([place] 5/325) 1 tab Q6H PRN ORAL For Pain 08/25/19 01:30 09/01/19 01:29 Acyclovir 500 mg/ Dextrose 110 ml @ 110 mls/hr Q8H IV 08/25/19 17:00 09/24/19 16:59 08/28/19 17:04 Atropine Sulfate (Atropine) 1 mg DAILYPRN PRN IVP HEART BLOCK 08/25/19 19:31 09/24/19 19:30 Cefepime HCl 2 gm/ Dextrose 100 ml @ 200 mls/hr Q12HR@0600,1800 IVPB 08/28/19 18:00 09/04/19 17:59 08/28/19 18:00 Dextrose (Dextrose 50%) 25 ml Q30M PRN IV Hypoglycemia 08/25/19 00:45 09/24/19 00:44 Dextrose (Dextrose 50%) 50 ml Q30M PRN IV Hypoglycemia 08/25/19 00:45 09/24/19 00:44 Diltiazem HCl (Cardizem CD) 180 mg DAILY ORAL 08/25/19 13:00 09/24/19 12:59 08/28/19 09:23 Diphenhydramine HCl (Benadryl) 25 mg Q6H PRN IVP Itching 08/26/19 09:00 09/25/19 08:59 08/28/19 09:43 Docusate Sodium (Colace) 100 mg EVERY 12 HOURS ORAL 08/25/19 09:00 09/24/19 08:59 08/28/19 21:29 Insulin Aspart (NovoLOG) BEFORE MEALS AND HS SUBQ 08/25/19 16:30 09/24/19 16:29 08/28/19 21:31 Insulin Detemir (Levemir) 5 units QHS SUBQ 08/24/19 22:45 09/23/19 22:44 08/28/19 21:00 Lorazepam (Ativan) 1 mg Q6H PRN ORAL For Anxiety 08/26/19 23:30 09/02/19 23:29 Mirtazapine (Remeron) 7.5 mg BEDTIME PRN ORAL insomnia 08/27/19 21:00 09/26/19 20:59 Morphine Sulfate (Morphine Sulfate) 2 mg Q4H PRN IVP Severe Pain (Pain Scale 7-10) 08/25/19 01:30 09/01/19 01:29 08/27/19 02:13 Moxifloxacin HCl (Vigamox) 2 drop Q4HR RIGHT EYE 08/28/19 01:00 09/02/19 23:59 08/28/19 21:29 Ondansetron HCl (Zofran) 4 mg Q6H PRN IVP Nausea & Vomiting 08/24/19 22:30 09/23/19 22:29 Oseltamivir Phosphate (Tamiflu) 75 mg TWICE A DAY ORAL 08/28/19 18:00 09/02/19 17:59 08/28/19 18:06 Pantoprazole (Protonix) 40 mg DAILY ORAL 08/25/19 09:00 09/24/19 08:59 08/28/19 09:24 Prednisone (predniSONE) 5 mg DAILY ORAL 08/25/19 09:00 09/24/19 08:59 08/28/19 09:24 Sodium Chloride 1,000 ml @ 75 mls/hr [id number] IV 08/25/19 01:30 09/24/19 01:29 08/28/19 18:01 Tacrolimus (Prograf) 1 mg EVERY 12 HOURS ORAL 08/27/19 12:20 09/26/19 12:19 08/28/19 21:29 Vancomycin HCl (Vanco rx to dose) 1 ea DAILY PRN MISC Per rx protocol 08/28/19 16:45 09/27/19 16:44 Vancomycin HCl 750 mg/Sodium Chloride 275 ml @ 183.333 mls/hr Q12HR IVPB 08/29/19 09:00 09/03/19 08:59 Neurological/Psychiatric: Reports: anxiety, depressed Allergies: Coded Allergies: No Known Allergies (Unverified , 10/21/17) Objective Data Height (Feet): 5 Height (Inches): 1.00 Weight (Pounds): 93 General Appearance: no apparent distress, alert Additional Comments: alert, oriented to times self, place, and situation. Mood is anxious. Affect is constricted. Congruent with mood. Thought process is concrete. Thought content, no suicidal or homicidal ideation. Cognition is intact. Insight and judgment fair. ASSESSMENT: [place] I Anxiety disorder. Cocaine dependence versus abuse. PLAN: 1. Ativan p.r.n. 2. Mirtazapine. 3. Provide the patient with reality orientation and supportive therapy. 4. Continue to follow and readjust the medication. Assessment/Plan Status: doing well, stable Hilaria Meza MD Aug 28, 2019 23:59
[2019-08-29] VITALS: BP 120/69
[2019-08-29] MEDS: Vigamox Opth Soln 3ml RIGHT EYE SCH ×6 (01:24→21:57)
[2019-08-29] MEDS: Acyclovir 500 MG in D5W 110 ML IV SCH ×3 (01:24→17:18)
[2019-08-29 04:00] VITALS: BP 137/65
[2019-08-29] MEDS: NovoLOG Insulin Flexpen SUBQ SCH ×4 (06:22→22:07)
[2019-08-29 06:34] LABS: HEMATOCRIT 40.8 % (37.0-47.0); MEAN CORPUSCULAR VOLUME 88 FL (80-99); PLATELET COUNT 49 K/UL (150-450); RED BLOOD COUNT 4.62 M/UL (4.20-5.40); RED CELL DISTRIBUTION WIDTH 10.8 % (11.6-14.8); WHITE BLOOD COUNT 7.8 K/UL (4.8-10.8)
[2019-08-29 07:19] LABS: ALANINE AMINOTRANSFERASE 28 U/L (12-78); ALBUMIN 2.7 G/DL (3.4-5.0); ALBUMIN/GLOBULIN RATIO 0.7 (1.0-2.7); ALKALINE PHOSPHATASE 139 U/L (46-116); ANION GAP 13 mmol/L (5-15); ASPARTATE AMINO TRANSFERASE 24 U/L (15-37); BILIRUBIN,TOTAL 0.8 MG/DL (0.2-1.0); BLOOD UREA NITROGEN 10 mg/dL (7-18); CALCIUM 8.8 MG/DL (8.5-10.1); CARBON DIOXIDE 23 MMOL/L (21-32); CHLORIDE 98 MMOL/L (98-107); POTASSIUM 3.8 MMOL/L (3.5-5.1); SODIUM 133 MMOL/L (136-145)
--- NOTE | 2019-08-29 07:43 | NUR ---
HAND-OFF: Report given to AL Santiago. Plan of care endorsed.
--- NOTE | 2019-08-29 07:50 | NUR ---
NURSE NOTES: Received report from AL Espinoza. Patient is sleeping, alert and oriented x 4. Patient is on regular diet, on room air, on airborne precaution. Patient in sinus rhythm, no respiratory distress nor chest pain noted at this time. Patient has Right forearm G-20 normal saline @ 75cc/hour intact and no bleeding nor infiltration. Safety measures in placed, bed alarm is on, bed in low position and locked. Call light within reach, will continue to monitor.
[2019-08-29 08:00] VITALS: BP 114/85
[2019-08-29] MEDS: dilTIAZem HCl CD 180mg cap ORAL SCH (08:52)
[2019-08-29] MEDS: Docusate 100mg cap ORAL SCH ×2 (08:52→21:56)
[2019-08-29] MEDS: Vancomycin 750mg/NS 275ml IVPB SCH ×4 (08:52→21:56)
--- NOTE | 2019-08-29 09:07 | NUR ---
RADIOLOGY DEPT., CHEST X-RAY DONE.-P.DYE
--- NOTE | 2019-08-29 10:03 | Diagnostic Imaging Report ---
Indication: Cough Technique: One view of the chest Comparison: 08/24/2019 Findings: Lungs and pleural spaces are clear. Heart size is normal. . The aorta is calcified. No significant interim change Impression: No acute process
[2019-08-29] MEDS: DiphenhydrAMINE 50mg/ml Inj IVP PRN (10:25)
--- NOTE | 2019-08-29 11:08 | General Progress Note ---
Assessment/Plan Status: doing well, stable Assessment/Plan: 53-year-old AAF with PMH of renal transplant 5 years ago, DM type II, who presented to the ED for rash Pt believes this developed as a side effect after recieving the MMR vaccine in late June. On admission patient was found to be in Mobitz type II. Rashes were concerning for disseminated varicella for which patient was admitted for further treatment and evaluation. #Disseminated varicella Continue inpatient medical care Cont. IV Valacyclovir 500 BID IV IV Benadryl for pruritis Air borne precautions ID following Cleared by Ophthalmology #Fever 101 -CXR clear -continue vancomycin and monitor levels #Mobitz Type II Seen on EKG on admission pt denies any CP, SOB, palpitations U tox positive for cocaine and cannabis Cardio, Dr. Tristan following No indication for PPM at this time #Acute bacterial conjunctivitis, right eye cont moxifloxacin eye drops #h/o renal transplant pt pending transfer to [facility] for further evaluation and work up, sign out given to accepting MD stop mycophenolate per Renal cont Prograf 1 mg bid, levels pending Nephrology recs appreciated #Hypokalemia -replace with oral KCl -monitor BMP #H/o medical non-compliance #Irrational behavior Urine tox positive for THC and cocaine psych following #Diabetes type 2 #Non-compliance #Hyperglycemia obtain A1C ISS, FSBS, insuin 5 U qHS #Hypomagnesemia Replace Continue to monitor, replace as needed DVT PPx: lovenox Time spent on encounter: 35 mins, >50% on pt counseling, coordination of care. Subjective Date patient seen: Aug 29, 2019 Time patient seen: 10:12 ROS Limited/Unobtainable: No Constitutional: Denies: chills, diaphoresis Cardiovascular: Denies: chest pain Respiratory: Denies: cough Gastrointestinal/Abdominal: Denies: abdomen distended, abdominal pain, diarrhea Allergies: Coded Allergies: No Known Allergies (Unverified , 10/21/17) Subjective Follow up for disseminated VZV infection Febrile to 101 yesterday, started on vancomycin No new complaints. Objective Last 24 Hour Vital Signs Date Time Temp Pulse Resp B/P (MAP) Pulse Ox O2 Delivery O2 Flow Rate FiO2 08/29/19 09:00 Room Air 08/29/19 08:52 68 114/85 08/29/19 08:00 98.7 68 18 114/85 (95) 98 3/12/20 08:00 89 08/29/19 05:08 99.4 08/29/19 04:00 114 08/29/19 04:00 100.8 100 18 137/65 (89) 97 08/29/19 00:00 98.0 98 18 120/69 (86) 98 08/29/19 00:00 102 08/28/19 21:00 Room Air 08/28/19 20:00 97 08/28/19 20:00 100.0 96 18 101/43 (62) 97 08/28/19 16:00 101.1 95 19 111/69 (83) 95 08/28/19 16:00 89 08/28/19 12:00 98 08/28/19 12:00 99.5 94 18 128/85 (99) 96 Intake and Output 08/28/19 08/29/19 19:00 07:00 Intake Total 480 ml Balance 480 ml Intake Oral 480 ml # Voids 2 3 Laboratory Tests 08/28/19 18:40: Urine Color Yellow, Urine Appearance Clear, Urine pH 7, Urine Specific [place] 1.005, Urine Protein Negative, Urine Glucose (UA) 2+H, Urine Ketones Negative, Urine Blood Negative, Urine Nitrite Negative, Urine Bilirubin Negative, Urine Urobilinogen 1H, Urine Leukocyte Esterase Negative 08/29/19 06:16: White Blood Count 7.8#, Red Blood Count 4.62, Hemoglobin 14.0, Hematocrit 40.8, Mean Corpuscular Volume 88, Mean Corpuscular Hemoglobin 30.3, Mean Corpuscular Hemoglobin Concent 34.3, Red Cell Distribution Width 10.8L, Platelet Count 49L, Mean Platelet Volume 17.0H, Neutrophils (%) (Auto) , Lymphocytes (%) (Auto) , Monocytes (%) (Auto) , Eosinophils (%) (Auto) , Basophils (%) (Auto) , Differential Total Cells Counted 100, Neutrophils % (Manual) 82H, Lymphocytes % (Manual) 6L, Monocytes % (Manual) 11H, Eosinophils % (Manual) 0, Basophils % ( Manual) 1, Band Neutrophils 0, Platelet Estimate DecreasedL, Platelet Morphology Normal, Anisocytosis 1+, Sodium Level 133L, Potassium Level 3.8, Chloride Level 98, Carbon Dioxide Level 23, Anion Gap 13, Blood Urea Nitrogen 10 , Creatinine 1.0#, Estimat Glomerular Filtration Rate > 60, Glucose Level 321#H , Calcium Level 8.8, Total Bilirubin 0.8, Aspartate Amino Transf (AST/SGOT) 24, Alanine Aminotransferase (ALT/SGPT) 28, Alkaline Phosphatase 139H, Total Protein 6.5, Albumin 2.7L, Globulin 3.8, Albumin/Globulin Ratio 0.7L Height (Feet): 5 Height (Inches): 1.00 Weight (Pounds): 93 General Appearance: no apparent distress, alert Neck: normal alignment, supple Cardiovascular: normal rate, regular rhythm Respiratory/Chest: lungs clear, normal breath sounds Ashvin Pacheco MD Aug 29, 2019 11:08
[2019-08-29 12:00] VITALS: BP 121/74
--- NOTE | 2019-08-29 14:37 | NUR ---
CASE MANAGEMENT:REVIEW 08/29/19 SI: DISSEMINATED VARICELLA MOBITZ TYPE II. CONJUNCTIVITIS 100.8 114 18 137/65 97% ON RA IS: VIGAMOX RT EYE Q4HRS IV ACYCLOVIR Q8HRS IVF@75/HR IV VANCOMYCIN Q12 CARDIZEM PO QD PROGRAF PO Q12 PREDNISONE PO QD PROTONIX PO QD TAMIFLU PO BID : TELEMETRY STATUS DCP: FROM HOME PLAN: 2DECHO INFLUENZA A&B
--- NOTE | 2019-08-29 14:39 | NUR ---
NURSE NOTES: Called Dr. Roach and left a message informing him about blood culture preliminary result. Will follow-up.
--- NOTE | 2019-08-29 14:51 | NUR ---
*-* INSURANCE *-* ALL CLINICALS AND REVIEWS HAVE BEEN FAXED TO: [facility] P: [phone] F: [phone] [facility] AUTH# [id number] FAX ALL CLINICALS TO [phone]
--- NOTE | 2019-08-29 15:44 | NUR ---
NURSE NOTES: Received phone call from Dr. Roach no new order.
[2019-08-29 16:00] VITALS: BP 120/61
--- NOTE | 2019-08-29 18:52 | NUR ---
NURSE NOTES: Paged Dr. Tristan regarding patient was having Paroxysmal RVR with HR 150, no ST w/ PAC HR 100s
--- NOTE | 2019-08-29 19:07 | NUR ---
NURSE NOTES: Per Dr. Tristan, no new order since the strip is not Afib but SVT.
--- NOTE | 2019-08-29 19:34 | NUR ---
HAND-OFF: Report given to AL Farooq. Endorsed plan of care.
--- NOTE | 2019-08-29 19:35 | NUR ---
NURSE NOTES: received pt from Jack MELENDEZ., pt is awake and resting on the bed, AOx4. pt is in RA no SOB noted. pt states no pain at this moment. pt Right FA 20G is intact, clean, and patent. call light within reach. bed at the lowest position, alarmed, and locked. will continue to monitor pt with plan of care.
[2019-08-29 20:00] VITALS: BP 124/76
--- NOTE | 2019-08-29 21:26 | Cardiology Progress Note ---
Assessment/Plan Status: stable Assessment/Plan Assessment/Plan Assessment/Plan: 53-year-old AAF with PMH of renal transplant 5 years ago, DM type II, who presented to the ED for rash that began 6 days ago. Cardiology consulted for heart block MOBITZ II Continue to monitor on telemetry Patient having premature atrial contracts that are blocked, avoid vagal manuvers , no indication for pacemaker Patient having runs or SVT from PACs - recommend starting Toprol XL to reduce ectopy D/c with ziopatch Echocardiogram Replete electrolytes Caution with atropine in case of infra alejo heart block which will worsen conduction Aggressive glucose control as hyperglycemia can damage conduction system psych consult for medication compliance Subjective Cardiovascular: Reports: no symptoms Respiratory: Reports: no symptoms Gastrointestinal/Abdominal: Reports: no symptoms Genitourinary: Reports: no symptoms Subjective Patient had runs of SVT self limited, no acute events otheriwse, vitals stable Objective Last 24 Hour Vital Signs Date Time Temp Pulse Resp B/P (MAP) Pulse Ox O2 Delivery O2 Flow Rate FiO2 08/29/19 16:00 109 08/29/19 16:00 96.8 80 18 120/61 (80) 100 08/29/19 12:00 98.6 75 18 121/74 (90) 98 08/29/19 12:00 101 08/29/19 09:00 Room Air 08/29/19 08:52 68 114/85 08/29/19 08:00 98.7 68 18 114/85 (95) 98 08/29/19 08:00 89 08/29/19 05:08 99.4 08/29/19 04:00 114 08/29/19 04:00 100.8 100 18 137/65 (89) 97 08/29/19 00:00 98.0 98 18 120/69 (86) 98 08/29/19 00:00 102 General Appearance: no apparent distress, alert EENT: PERRL/EOMI, normal ENT inspection, TMs normal, pharynx normal Neck: normal alignment, supple, normal inspection, no JVD Rhythm: NSR, SVT Cardiovascular: normal peripheral pulses, normal rate, regular rhythm Respiratory/Chest: chest wall non-tender, lungs clear, normal breath sounds, no respiratory distress, no accessory muscle use Abdomen: normal bowel sounds, non tender, soft, no organomegaly, no mass Extremities: normal range of motion, non-tender, normal inspection, no calf tenderness, no swelling Neurologic: 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, no motor/sensory deficits Intake and Output 08/28/19 08/29/19 19:00 07:00 Intake Total 480 ml Balance 480 ml Intake Oral 480 ml # Voids 2 3 Laboratory Tests Test 08/29/19 06:16 White Blood Count 7.8 K/UL (4.8-10.8) # Red Blood Count 4.62 M/UL (4.20-5.40) Hemoglobin 14.0 G/DL (12.0-16.0) Hematocrit 40.8 % (37.0-47.0) Mean Corpuscular Volume 88 FL (80-99) Mean Corpuscular Hemoglobin 30.3 PG (27.0-31.0) Mean Corpuscular Hemoglobin Concent 34.3 G/DL (32.0-36.0) Red Cell Distribution Width 10.8 % (11.6-14.8) L Platelet Count 49 K/UL (150-450) L Mean Platelet Volume 17.0 FL (6.5-10.1) H Neutrophils (%) (Auto) % (45.0-75.0) Lymphocytes (%) (Auto) % (20.0-45.0) Monocytes (%) (Auto) % (1.0-10.0) Eosinophils (%) (Auto) % (0.0-3.0) Basophils (%) (Auto) % (0.0-2.0) Differential Total Cells Counted 100 Neutrophils % (Manual) 82 % (45-75) H Lymphocytes % (Manual) 6 % (20-45) L Monocytes % (Manual) 11 % (1-10) H Eosinophils % (Manual) 0 % (0-3) Basophils % (Manual) 1 % (0-2) Band Neutrophils 0 % (0-8) Platelet Estimate Decreased L Platelet Morphology Normal Anisocytosis 1+ Sodium Level 133 MMOL/L (136-145) L Potassium Level 3.8 MMOL/L (3.5-5.1) Chloride Level 98 MMOL/L (98-107) Carbon Dioxide Level 23 MMOL/L (21-32) Anion Gap 13 mmol/L (5-15) Blood Urea Nitrogen 10 mg/dL (7-18) Creatinine 1.0 MG/DL (0.55-1.30) # Estimat Glomerular Filtration Rate > 60 mL/min (>60) Glucose Level 321 MG/DL (74-106) #H Calcium Level 8.8 MG/DL (8.5-10.1) Total Bilirubin 0.8 MG/DL (0.2-1.0) Aspartate Amino Transf (AST/SGOT) 24 U/L (15-37) Alanine Aminotransferase (ALT/SGPT) 28 U/L (12-78) Alkaline Phosphatase 139 U/L (46-116) H Total Protein 6.5 G/DL (6.4-8.2) Albumin 2.7 G/DL (3.4-5.0) L Globulin 3.8 g/dL Albumin/Globulin Ratio 0.7 (1.0-2.7) L Microbiology Date/Time Source Procedure Growth Status 08/28/19 19:15 Blood Blood Culture - Preliminary Resulted 08/28/19 19:00 Blood Blood Culture - Preliminary Resulted 08/28/19 19:30 Nasal Nares - Final Complete 08/28/19 19:30 Nasal Nares - Final Complete Sumit Tristan MD Aug 29, 2019 21:26
[2019-08-29] MEDS: Levemir Flexpen SUBQ SCH (22:08)
--- NOTE | 2019-08-29 23:57 | Psych Consult Progress Note ---
Psychiatry Progress Note Psychiatry Progress Note Medications Current Medications Medications (Trade) Dose Ordered Sig/Karine Route PRN Reason Start Time Stop Time Status Last Admin Dose Admin Acetaminophen (Tylenol) 650 mg Q4H PRN ORAL Mild Pain (Pain Scale 1-3) 08/24/19 22:30 09/23/19 22:29 08/29/19 04:03 Acetaminophen (Tylenol) 650 mg Q4H PRN ORAL fever 08/24/19 22:30 09/23/19 22:29 Acetaminophen/ Hydrocodone Bitart ([place] 5/325) 1 tab Q6H PRN ORAL For Pain 08/25/19 01:30 09/01/19 01:29 Acyclovir 500 mg/ Dextrose 110 ml @ 110 mls/hr Q8H IV 08/25/19 17:00 09/24/19 16:59 08/29/19 17:18 Atropine Sulfate (Atropine) 1 mg DAILYPRN PRN IVP HEART BLOCK 08/25/19 19:31 09/24/19 19:30 Dextrose (Dextrose 50%) 25 ml Q30M PRN IV Hypoglycemia 08/25/19 00:45 09/24/19 00:44 Dextrose (Dextrose 50%) 50 ml Q30M PRN IV Hypoglycemia 08/25/19 00:45 09/24/19 00:44 Diltiazem HCl (Cardizem CD) 180 mg DAILY ORAL 08/25/19 13:00 09/24/19 12:59 08/29/19 08:52 Diphenhydramine HCl (Benadryl) 25 mg Q6H PRN IVP Itching 08/26/19 09:00 09/25/19 08:59 08/29/19 10:25 Docusate Sodium (Colace) 100 mg EVERY 12 HOURS ORAL 08/25/19 09:00 09/24/19 08:59 08/29/19 21:56 Insulin Aspart (NovoLOG) BEFORE MEALS AND HS SUBQ 08/25/19 16:30 09/24/19 16:29 08/29/19 22:07 Insulin Detemir (Levemir) 5 units QHS SUBQ 08/24/19 22:45 09/23/19 22:44 08/29/19 22:08 Lorazepam (Ativan) 1 mg Q6H PRN ORAL For Anxiety 08/26/19 23:30 09/02/19 23:29 Metoprolol Succinate (Toprol XL) 50 mg DAILY ORAL 08/30/19 09:00 09/29/19 08:59 Mirtazapine (Remeron) 7.5 mg BEDTIME PRN ORAL insomnia 08/27/19 21:00 09/26/19 20:59 Morphine Sulfate (Morphine Sulfate) 2 mg Q4H PRN IVP Severe Pain (Pain Scale 7-10) 08/25/19 01:30 09/01/19 01:29 08/27/19 02:13 Moxifloxacin HCl (Vigamox) 2 drop Q4HR RIGHT EYE 08/28/19 01:00 09/02/19 23:59 08/29/19 21:57 Ondansetron HCl (Zofran) 4 mg Q6H PRN IVP Nausea & Vomiting 08/24/19 22:30 09/23/19 22:29 Pantoprazole (Protonix) 40 mg DAILY ORAL 08/25/19 09:00 09/24/19 08:59 08/29/19 08:52 Prednisone (predniSONE) 5 mg DAILY ORAL 08/25/19 09:00 09/24/19 08:59 08/29/19 08:52 Sodium Chloride 1,000 ml @ 75 mls/hr [id number] IV 08/25/19 01:30 09/24/19 01:29 08/29/19 12:57 Tacrolimus (Prograf) 1 mg EVERY 12 HOURS ORAL 08/27/19 12:20 09/26/19 12:19 08/29/19 21:56 Vancomycin HCl (Vanco rx to dose) 1 ea DAILY PRN MISC Per rx protocol 08/28/19 16:45 09/27/19 16:44 Vancomycin HCl 750 mg/Sodium Chloride 275 ml @ 183.333 mls/hr Q12HR IVPB 08/29/19 09:00 09/03/19 08:59 08/29/19 21:56 Neurological/Psychiatric: Reports: anxiety, depressed, emotional problems Allergies: Coded Allergies: No Known Allergies (Unverified , 10/21/17) Objective Data Height (Feet): 5 Height (Inches): 1.00 Weight (Pounds): 93 General Appearance: WD/WN, no apparent distress, alert Behavior Mannerisms: good eye contact Mental Status Exam - Affect: blunted Mental Status Exam - Mood: irritable, angry Speech: clear Mental Status Exam - Thought P: illogical Mental Status Exam - Suicidal: not present, no plan Additional Comments: alert, oriented to times self, place, and situation. Mood is anxious. Affect is constricted. Congruent with mood. Thought process is concrete. Thought content, no suicidal or homicidal ideation. Cognition is intact. Insight and judgment fair. ASSESSMENT: [place] I Anxiety disorder. Cocaine dependence versus abuse. PLAN: 1. Ativan p.r.n. 2. Mirtazapine. 3. Provide the patient with reality orientation and supportive therapy. 4. Continue to follow and readjust the medication. Assessment/Plan Status: stable Hilaria Meza MD Aug 29, 2019 23:57
[2019-08-30] VITALS: BP 128/78
[2019-08-30] MEDS: Acyclovir 500 MG in D5W 110 ML IV SCH ×3 (00:50→17:27)
[2019-08-30] MEDS: DiphenhydrAMINE 50mg/ml Inj IVP PRN ×2 (00:51→21:18)
[2019-08-30] MEDS: Vigamox Opth Soln 3ml RIGHT EYE SCH ×6 (00:55→20:56)
[2019-08-30 04:00] VITALS: BP 130/85
[2019-08-30] MEDS: NovoLOG Insulin Flexpen SUBQ SCH ×4 (06:00→20:57)
--- NOTE | 2019-08-30 07:30 | NUR ---
NURSE NOTES: RECEIVED PATIENT IN STABLE CONDITION. PATIENT AWAKE AND ABLE TO MAKE NEEDS KNOWN. NO COMPLAINTS OF PAIN OR DISCOMFORT. BREATHING IS EVEN AND UNLABORED ON ROOM AIR, NO S/SX OF DISTRESS. SIDERAILS UP X 2, BED IN LOWEST POSITION AND LOCKED. CALL LIGHT WITHIN REACH. WILL CONTINUE TO MONITOR.
--- NOTE | 2019-08-30 07:30 | NUR ---
HAND-OFF: Report given to Nora MELENDEZ. pt remains stable condition, endorsed plan of care.
[2019-08-30 08:00] VITALS: BP 113/77
--- NOTE | 2019-08-30 08:24 | General Progress Note ---
Assessment/Plan Status: stable Assessment/Plan: 53-year-old AAF with PMH of renal transplant 5 years ago, DM type II, who presented to the ED for rash Pt believes this developed as a side effect after recieving the MMR vaccine in late June. On admission patient was found to be in Mobitz type II. Rashes were concerning for disseminated varicella for which patient was admitted for further treatment and evaluation. #Disseminated varicella Continue inpatient medical care Cont. IV Valacyclovir 500 BID IV IV Benadryl for pruritis Air borne precautions ID following Cleared by Ophthalmology #Sepsis, GPC bacteremia -continue vancomycin and monitor levels -follow up final blood cultures -check TTE, will need JOVON if negative -Discussed with ID #Mobitz Type II Seen on EKG on admission pt denies any CP, SOB, palpitations U tox positive for cocaine and cannabis Cardio, Dr. Tristan following No indication for PPM at this time #Acute bacterial conjunctivitis, right eye cont moxifloxacin eye drops #h/o renal transplant pt pending transfer to [facility] for further evaluation and work up, sign out given to accepting MD off mycophenolate per Renal cont Prograf 1 mg bid, levels pending Nephrology recs appreciated #Hypokalemia -replace with oral KCl -monitor BMP #H/o medical non-compliance #Irrational behavior Urine tox positive for THC and cocaine psych following #Diabetes type 2 #Non-compliance #Hyperglycemia obtain A1C ISS, FSBS, insuin 5 U qHS #Hypomagnesemia Replace Continue to monitor, replace as needed DVT PPx: lovenox Time spent on encounter: 35 mins, >50% on pt counseling, coordination of care. Subjective Date patient seen: Aug 30, 2019 Time patient seen: 07:55 ROS Limited/Unobtainable: No Constitutional: Denies: chills, fever Cardiovascular: Denies: chest pain Respiratory: Denies: cough Gastrointestinal/Abdominal: Denies: abdomen distended, abdominal pain, constipated Allergies: Coded Allergies: No Known Allergies (Unverified , 10/21/17) Subjective Follow up for disseminated VZV infection Febrile to 101 recently and started on vancomycin Yesterday noted to have multiple blood cultures positive for GPC Fever improved today Objective Last 24 Hour Vital Signs Date Time Temp Pulse Resp B/P (MAP) Pulse Ox O2 Delivery O2 Flow Rate FiO2 08/30/19 04:00 98.8 77 18 130/85 (100) 98 08/30/19 03:34 106 08/30/19 00:00 98.7 88 18 128/78 (95) 97 08/29/19 23:37 107 08/29/19 21:00 Room Air 08/29/19 20:00 99.5 82 18 124/76 (92) 100 08/29/19 19:28 122 08/29/19 16:00 109 08/29/19 16:00 96.8 80 18 120/61 (80) 100 08/29/19 12:00 98.6 75 18 121/74 (90) 98 08/29/19 12:00 101 08/29/19 09:00 Room Air 08/29/19 08:52 68 114/85 Intake and Output 08/29/19 08/30/19 19:00 07:00 Intake Total 140 ml Output Total 1400 ml Balance -1260 ml Intake Oral 140 ml Output Urine Total 1400 ml # Voids 3 Height (Feet): 5 Height (Inches): 1.00 Weight (Pounds): 93 General Appearance: no apparent distress, alert Neck: normal alignment, supple, normal inspection Cardiovascular: normal rate, regular rhythm Respiratory/Chest: lungs clear, normal breath sounds, no respiratory distress Abdomen: non tender, soft Neurologic: alert, oriented x 3 Ashvin Pacheco MD Aug 30, 2019 08:24
[2019-08-30] MEDS: Docusate 100mg cap ORAL SCH ×2 (09:00→20:55)
[2019-08-30] MEDS ORDERED: Metoprolol Succinate XL 50mg tab ORAL SCH (09:00)
[2019-08-30] MEDS: Vancomycin 750mg/NS 275ml IVPB SCH ×2 (09:00)
[2019-08-30] MEDS: dilTIAZem HCl CD 180mg cap ORAL SCH (09:39)
[2019-08-30 10:01] LABS: HEMATOCRIT 41.5 % (37.0-47.0); MEAN CORPUSCULAR VOLUME 88 FL (80-99); PLATELET COUNT 52 K/UL (150-450); RED BLOOD COUNT 4.72 M/UL (4.20-5.40); RED CELL DISTRIBUTION WIDTH 11.1 % (11.6-14.8); WHITE BLOOD COUNT 6.8 K/UL (4.8-10.8)
[2019-08-30 10:17] LABS: ALANINE AMINOTRANSFERASE 19 U/L (12-78); ALBUMIN 2.7 G/DL (3.4-5.0); ALBUMIN/GLOBULIN RATIO 0.8 (1.0-2.7); ALKALINE PHOSPHATASE 111 U/L (46-116); ANION GAP 9 mmol/L (5-15); ASPARTATE AMINO TRANSFERASE 18 U/L (15-37); BILIRUBIN,TOTAL 0.7 MG/DL (0.2-1.0); BLOOD UREA NITROGEN 8 mg/dL (7-18); CALCIUM 9.2 MG/DL (8.5-10.1); CARBON DIOXIDE 27 MMOL/L (21-32); CHLORIDE 100 MMOL/L (98-107); CREATININE 0.8 MG/DL (0.55-1.30); POTASSIUM 3.6 MMOL/L (3.5-5.1); SODIUM 136 MMOL/L (136-145)
[2019-08-30 12:00] VITALS: BP 120/54
--- NOTE | 2019-08-30 12:30 | Cardiology Progress Note ---
Assessment/Plan Status: stable, progressing Assessment/Plan Assessment/Plan Assessment/Plan: 53-year-old AAF with PMH of renal transplant 5 years ago, DM type II, who presented to the ED for rash that began 6 days ago. Cardiology consulted for heart block MOBITZ II Continue to monitor on telemetry Patient having premature atrial contracts that are blocked, avoid vagal manuvers , no indication for pacemaker Patient having runs or SVT from PACs -ContinueToprol XL to reduce ectopy D/c with ziopatch Echocardiogram Replete electrolytes Stress test as outpatient Caution with atropine in case of infra alejo heart block which will worsen conduction Aggressive glucose control as hyperglycemia can damage conduction system psych consulted for medication compliance Subjective Cardiovascular: Reports: no symptoms Respiratory: Reports: no symptoms Gastrointestinal/Abdominal: Reports: no symptoms Genitourinary: Reports: no symptoms Subjective No acute events, monitor with no runs overnight, still has PACs Objective Last 24 Hour Vital Signs Date Time Temp Pulse Resp B/P (MAP) Pulse Ox O2 Delivery O2 Flow Rate FiO2 08/30/19 09:39 126 113/77 08/30/19 09:39 126 113/77 08/30/19 09:00 Room Air 08/30/19 08:00 99.7 126 20 113/77 (89) 100 08/30/19 08:00 109 08/30/19 04:00 98.8 77 18 130/85 (100) 98 08/30/19 03:34 106 08/30/19 00:00 98.7 88 18 128/78 (95) 97 08/29/19 23:37 107 08/29/19 21:00 Room Air 08/29/19 20:00 99.5 82 18 124/76 (92) 100 08/29/19 19:28 122 08/29/19 16:00 109 08/29/19 16:00 96.8 80 18 120/61 (80) 100 General Appearance: no apparent distress, alert EENT: PERRL/EOMI, normal ENT inspection, TMs normal, pharynx normal Neck: non-tender, normal alignment, supple, normal inspection, no JVD Rhythm: NSR, PACs Cardiovascular: normal peripheral pulses, normal rate, regular rhythm, regularly irregular Respiratory/Chest: chest wall non-tender, lungs clear, normal breath sounds, no respiratory distress, no accessory muscle use Abdomen: normal bowel sounds, non tender, soft, no organomegaly Extremities: normal range of motion, non-tender, normal inspection, no calf tenderness, no swelling Neurologic: medical engineer II-XII grossly normal, no motor/sensory deficits Intake and Output 08/29/19 08/30/19 19:00 07:00 Intake Total 140 ml Output Total 1400 ml Balance -1260 ml Intake Oral 140 ml Output Urine Total 1400 ml # Voids 3 Laboratory Tests Test 08/30/19 08:10 White Blood Count 6.8 K/UL (4.8-10.8) Red Blood Count 4.72 M/UL (4.20-5.40) Hemoglobin 14.0 G/DL (12.0-16.0) Hematocrit 41.5 % (37.0-47.0) Mean Corpuscular Volume 88 FL (80-99) Mean Corpuscular Hemoglobin 29.7 PG (27.0-31.0) Mean Corpuscular Hemoglobin Concent 33.9 G/DL (32.0-36.0) Red Cell Distribution Width 11.1 % (11.6-14.8) L Platelet Count 52 K/UL (150-450) L Mean Platelet Volume 16.1 FL (6.5-10.1) H Neutrophils (%) (Auto) % (45.0-75.0) Lymphocytes (%) (Auto) % (20.0-45.0) Monocytes (%) (Auto) % (1.0-10.0) Eosinophils (%) (Auto) % (0.0-3.0) Basophils (%) (Auto) % (0.0-2.0) Differential Total Cells Counted 100 Neutrophils % (Manual) 71 % (45-75) Lymphocytes % (Manual) 19 % (20-45) L Monocytes % (Manual) 10 % (1-10) Eosinophils % (Manual) 0 % (0-3) Basophils % (Manual) 0 % (0-2) Band Neutrophils 0 % (0-8) Platelet Estimate Decreased L Platelet Morphology Normal Red Blood Cell Morphology Normal Sodium Level 136 MMOL/L (136-145) Potassium Level 3.6 MMOL/L (3.5-5.1) Chloride Level 100 MMOL/L (98-107) Carbon Dioxide Level 27 MMOL/L (21-32) Anion Gap 9 mmol/L (5-15) Blood Urea Nitrogen 8 mg/dL (7-18) Creatinine 0.8 MG/DL (0.55-1.30) Estimat Glomerular Filtration Rate > 60 mL/min (>60) Glucose Level 158 MG/DL (74-106) #H Calcium Level 9.2 MG/DL (8.5-10.1) Total Bilirubin 0.7 MG/DL (0.2-1.0) Aspartate Amino Transf (AST/SGOT) 18 U/L (15-37) Alanine Aminotransferase (ALT/SGPT) 19 U/L (12-78) Alkaline Phosphatase 111 U/L (46-116) Total Protein 6.3 G/DL (6.4-8.2) L Albumin 2.7 G/DL (3.4-5.0) L Globulin 3.6 g/dL Albumin/Globulin Ratio 0.8 (1.0-2.7) L Vancomycin Level Trough 8.2 ug/mL (5.0-12.0) Microbiology Date/Time Source Procedure Growth Status 08/28/19 19:15 Blood Blood Culture - Preliminary Gram Positive Cocci Resulted 08/28/19 19:00 Blood Blood Culture - Preliminary Gram Positive Cocci Resulted 08/28/19 19:30 Nasal Nares - Final Complete 08/28/19 19:30 Nasal Nares - Final Complete Sumit Tristan MD Aug 30, 2019 12:30
--- NOTE | 2019-08-30 13:41 | NUR ---
RD ASSESSMENT & RECOMMENDATIONS SEE CARE ACTIVITY FOR COMPLETE ASSESSMENT DAILY ESTIMATED NEEDS: Needs based on DM, underweight 44kg 30-35 kcals/kg 5067-8480 total kcals 1-1.5 g protein/kg 44-66 g total protein 25-30 mL/kg 4628-4096 total fluid mLs NUTRITION DIAGNOSIS: Altered nutrition related lab values r/t IDDM as evidenced y A1C 9.1, BG 321 209 179, adm w/ (+) tox for cocaine. CURRENT DIET:REGULAR PO DIET RECOMMENDATIONS: CCHO LOW / LOW NA DIET ADDITIONAL RECOMMENDATIONS: 1) Obtain a calibrated bed scale wt 2) Monitor po intake -> Add high pro / 1 carb snacks, pt refused Glucerna 3) Consider increasing Levemir w/ non-carb controlled diet -BGs variable, pt on Prednisone.
--- NOTE | 2019-08-30 14:25 | NUR ---
CASE MANAGEMENT:REVIEW 08/30/19 SI: DISSEMINATED VARICELLA MOBITZ TYPE II. CONJUNCTIVITIS 101.5 126 24 120/54 98% ON RA PLT-52 IS: VIGAMOX RT EYE Q4HRS IV ACYCLOVIR Q8HRS IVF@75/HR IV VANCOMYCIN Q12 CARDIZEM PO QD PROGRAF PO Q12 PREDNISONE PO QD PROTONIX PO QD TOPROL XL PO QD : TELEMETRY STATUS DCP: FROM HOME
[2019-08-30] MEDS: Vancomycin 1.25gm/NS Premix IVPB SCH (15:10)
[2019-08-30 16:00] VITALS: BP 97/50
--- NOTE | 2019-08-30 19:52 | Infectious Diseases Prog Note ---
Assessment/Plan Assessment/Plan ASSESSMENT AND PLAN: 1. disseminated varicella virus infection, airborne isolation gram + bacteremia, sepsis, ? endocarditis, ? right arm cellulitis with infiltrated iv that was changed - iv acyclovir - day # 6 - vancomycin - day # 3 - lesions crusting more - can remove isolation once all lesions crusted over - monitor low grade temperatures - check final blood culture results - monitor labs, f/u on TTE - surveillance cultures - influenza negative - monitor right arm cellulitis/swelling 2. Right eye conjunctivitis - less drainage, improved, cleared by ophthalmology , moxifloxacin eye drops 3. Renal transplant patient. 4. Diabetes. 5. Questionable hypertension. 6. Blood sugar treatment per primary care team for diabetes type 2. 7. Urine drug screen positive for cocaine and THC. 8. The patient is renal transplant patient and is immunocompromised. 9. Mobitz type 2 heart block. Treatment per Cardiology. 10. Continue treatment primary consultants. 11. No known drug allergies. 12. Social history looks like positive for THC and cocaine, but no history of smoking and alcohol per discussion with the patient. 13. Family history is noncontributory. 14. MAR is noted. 15. Case was discussed with RN. Subjective Constitutional: Denies: fever HEENT: Denies: congestion Respiratory: Denies: shortness of breath Cardiovascular: Denies: chest pain Gastrointestinal/Abdominal: Denies: nausea, vomiting, diarrhea Genitourinary: Reports: other - no forte Psychiatric: Denies: depression Skin: Denies: rash Hematologic: Denies: bleeding Musculoskeletal: Denies: pain Allergies: Coded Allergies: No Known Allergies (Unverified , 10/21/17) Objective Vital Signs Last 24 Hour Vital Signs Date Time Temp Pulse Resp B/P (MAP) Pulse Ox O2 Delivery O2 Flow Rate FiO2 08/30/19 16:00 98.2 86 20 97/50 (66) 97 08/30/19 16:00 74 08/30/19 12:00 101.5 98 24 120/54 (76) 98 08/30/19 12:00 100 08/30/19 09:39 126 113/77 08/30/19 09:39 126 113/77 08/30/19 09:00 Room Air 08/30/19 08:00 99.7 126 20 113/77 (89) 100 08/30/19 08:00 109 08/30/19 04:00 98.8 77 18 130/85 (100) 98 08/30/19 03:34 106 08/30/19 00:00 98.7 88 18 128/78 (95) 97 08/29/19 23:37 107 08/29/19 21:00 Room Air 08/29/19 20:00 99.5 82 18 124/76 (92) 100 Height (Feet): 5 Height (Inches): 1.00 Weight (Pounds): 93 General Appearance: no acute distress HEENT: atraumatic, anicteric Respiratory/Chest: lungs clear, normal breath sounds, no respiratory distress Cardiovascular: normal rate, regular rhythm, no gallop/murmur, no JVD Abdomen: normal bowel sounds, soft, non tender, no organomegaly, non distended Genitourinary: other - no forte Extremities: no cyanosis, other - right arm with swelling, possible infiltrated iv which was changed Skin: rash - less, lesions - crusting over Neurologic/Psychiatric: traffic checker II-XII grossly normal, alert, oriented x 3, responsive Lymphatic: no neck adenopathy Musculoskeletal: no effusion Objective Chest x-ray - Procedure: XRAY Chest 1v EXAM: XR Chest, 1 View CLINICAL HISTORY: CP TECHNIQUE: Frontal view of the chest. COMPARISON: No relevant prior studies available. FINDINGS: Lungs: No consolidation. Pleural space: Unremarkable. No pneumothorax. Heart: Unremarkable. No cardiomegaly. Mediastinum: Unremarkable. Bones/joints: No acute fracture. IMPRESSION: No acute cardiopulmonary disease. 08/29/19 - chest x-ray - nad, report noted Microbiology Date/Time Source Procedure Growth Status 08/28/19 19:15 Blood Blood Culture - Preliminary Gram Positive Cocci Resulted 08/28/19 19:00 Blood Blood Culture - Preliminary Gram Positive Cocci Resulted 08/28/19 19:30 Nasal Nares - Final Complete 08/28/19 19:30 Nasal Nares - Final Complete Laboratory Tests Test 08/30/19 08:10 White Blood Count 6.8 K/UL (4.8-10.8) Red Blood Count 4.72 M/UL (4.20-5.40) Hemoglobin 14.0 G/DL (12.0-16.0) Hematocrit 41.5 % (37.0-47.0) Mean Corpuscular Volume 88 FL (80-99) Mean Corpuscular Hemoglobin 29.7 PG (27.0-31.0) Mean Corpuscular Hemoglobin Concent 33.9 G/DL (32.0-36.0) Red Cell Distribution Width 11.1 % (11.6-14.8) L Platelet Count 52 K/UL (150-450) L Mean Platelet Volume 16.1 FL (6.5-10.1) H Neutrophils (%) (Auto) % (45.0-75.0) Lymphocytes (%) (Auto) % (20.0-45.0) Monocytes (%) (Auto) % (1.0-10.0) Eosinophils (%) (Auto) % (0.0-3.0) Basophils (%) (Auto) % (0.0-2.0) Differential Total Cells Counted 100 Neutrophils % (Manual) 71 % (45-75) Lymphocytes % (Manual) 19 % (20-45) L Monocytes % (Manual) 10 % (1-10) Eosinophils % (Manual) 0 % (0-3) Basophils % (Manual) 0 % (0-2) Band Neutrophils 0 % (0-8) Platelet Estimate Decreased L Platelet Morphology Normal Red Blood Cell Morphology Normal Sodium Level 136 MMOL/L (136-145) Potassium Level 3.6 MMOL/L (3.5-5.1) Chloride Level 100 MMOL/L (98-107) Carbon Dioxide Level 27 MMOL/L (21-32) Anion Gap 9 mmol/L (5-15) Blood Urea Nitrogen 8 mg/dL (7-18) Creatinine 0.8 MG/DL (0.55-1.30) Estimat Glomerular Filtration Rate > 60 mL/min (>60) Glucose Level 158 MG/DL (74-106) #H Calcium Level 9.2 MG/DL (8.5-10.1) Total Bilirubin 0.7 MG/DL (0.2-1.0) Aspartate Amino Transf (AST/SGOT) 18 U/L (15-37) Alanine Aminotransferase (ALT/SGPT) 19 U/L (12-78) Alkaline Phosphatase 111 U/L (46-116) Total Protein 6.3 G/DL (6.4-8.2) L Albumin 2.7 G/DL (3.4-5.0) L Globulin 3.6 g/dL Albumin/Globulin Ratio 0.8 (1.0-2.7) L Vancomycin Level Trough 8.2 ug/mL (5.0-12.0) Current Medications Medications (Trade) Dose Ordered Sig/Karine Route PRN Reason Start Time Stop Time Status Last Admin Dose Admin Acetaminophen (Tylenol) 650 mg Q4H PRN ORAL Mild Pain (Pain Scale 1-3) 08/24/19 22:30 09/23/19 22:29 08/29/19 04:03 Acetaminophen (Tylenol) 650 mg Q4H PRN ORAL fever 08/24/19 22:30 09/23/19 22:29 Acetaminophen/ Hydrocodone Bitart ([place] 5/325) 1 tab Q6H PRN ORAL For Pain 08/25/19 01:30 09/01/19 01:29 Acyclovir 500 mg/ Dextrose 110 ml @ 110 mls/hr Q8H IV 08/25/19 17:00 09/24/19 16:59 08/30/19 17:27 Atropine Sulfate (Atropine) 1 mg DAILYPRN PRN IVP HEART BLOCK 08/25/19 19:31 09/24/19 19:30 Dextrose (Dextrose 50%) 25 ml Q30M PRN IV Hypoglycemia 08/25/19 00:45 09/24/19 00:44 Dextrose (Dextrose 50%) 50 ml Q30M PRN IV Hypoglycemia 08/25/19 00:45 09/24/19 00:44 Diltiazem HCl (Cardizem CD) 180 mg DAILY ORAL 08/25/19 13:00 09/24/19 12:59 08/30/19 09:39 Diphenhydramine HCl (Benadryl) 25 mg Q6H PRN IVP Itching 08/26/19 09:00 09/25/19 08:59 08/30/19 00:51 Docusate Sodium (Colace) 100 mg EVERY 12 HOURS ORAL 08/25/19 09:00 09/24/19 08:59 08/29/19 21:56 Insulin Aspart (NovoLOG) BEFORE MEALS AND HS SUBQ 08/25/19 16:30 09/24/19 16:29 08/30/19 16:30 Insulin Detemir (Levemir) 5 units QHS SUBQ 08/24/19 22:45 09/23/19 22:44 08/29/19 22:08 Lorazepam (Ativan) 1 mg Q6H PRN ORAL For Anxiety 08/26/19 23:30 09/02/19 23:29 Metoprolol Succinate (Toprol XL) 50 mg DAILY ORAL 08/30/19 09:00 09/29/19 08:59 08/30/19 09:39 Mirtazapine (Remeron) 7.5 mg BEDTIME PRN ORAL insomnia 08/27/19 21:00 09/26/19 20:59 Morphine Sulfate (Morphine Sulfate) 2 mg Q4H PRN IVP Severe Pain (Pain Scale 7-10) 08/25/19 01:30 09/01/19 01:29 08/27/19 02:13 Moxifloxacin HCl (Vigamox) 2 drop Q4HR RIGHT EYE 08/28/19 01:00 09/02/19 23:59 08/30/19 17:28 Ondansetron HCl (Zofran) 4 mg Q6H PRN IVP Nausea & Vomiting 08/24/19 22:30 09/23/19 22:29 Pantoprazole (Protonix) 40 mg DAILY ORAL 08/25/19 09:00 09/24/19 08:59 08/30/19 09:39 Prednisone (predniSONE) 5 mg DAILY ORAL 08/25/19 09:00 09/24/19 08:59 08/30/19 09:40 Sodium Chloride 1,000 ml @ 75 mls/hr [id number] IV 08/25/19 01:30 09/24/19 01:29 08/30/19 17:27 Tacrolimus (Prograf) 1 mg EVERY 12 HOURS ORAL 08/27/19 12:20 09/26/19 12:19 08/30/19 09:40 Vancomycin HCl (Vanco rx to dose) 1 ea DAILY PRN MISC Per rx protocol 08/28/19 16:45 09/27/19 16:44 Vancomycin/Sodium Chloride 275 ml @ 183.333 mls/hr Q12HR@0000,1200 IVPB 08/30/19 11:30 09/04/19 11:29 08/30/19 15:10 Juana Roach MD Aug 30, 2019 19:52
[2019-08-30 20:00] VITALS: BP 100/60
--- NOTE | 2019-08-30 20:00 | NUR ---
NURSE NOTES: Received patient from AL Cedeño, in stable condition, AOx4, IV site on left forearm asymptomatic, intact, patient peed on the floor stating "I don't want to wet the bed".Reassured patient we could help when she needs to go the bathroom just use the call light". bed low&locked, call light within reach, side rails upx2, will continue to monitor and reassess Addendum: 08/31/19 at 0712 by NÉSTOR COOK RN received report from AL Melendez
--- NOTE | 2019-08-30 20:03 | NUR ---
HAND-OFF: Report given to Jana Pacheco RN. Jaqueline turcios. Plan of care endorsed.
[2019-08-30] MEDS: Levemir Flexpen SUBQ SCH (21:00)
[2019-08-31] MEDS: Vancomycin 1.25gm/NS Premix IVPB SCH (00:13)
[2019-08-31] MEDS: Acyclovir 500 MG in D5W 110 ML IV SCH ×3 (00:13→17:53)
[2019-08-31] MEDS: Vigamox Opth Soln 3ml RIGHT EYE SCH ×6 (01:02→20:58)
--- NOTE | 2019-08-31 02:45 | Progress Note ---
DATE: 08/30/2019 SUBJECTIVE: The patient is withdrawn, depressed, anhedonia, worthlessness, hopelessness, and decreased energy. Compliant with medication. No behavior issues noted. The patient is the same. MENTAL STATUS EXAMINATION: The patient is alert and oriented times self, place, and situation. Mood is neutral. Affect is constricted, congruent with mood. Thought process is concrete. Thought content, there is no suicidal or homicidal ideation. ASSESSMENT: Stable. PLAN: 1. We will continue current medication. 2. Provide the patient with reality orientation. 4. We will continue to follow and readjust the medications. Hilaria Meza M.D. DR: KARMEN JOB#: [id number] CC: MILTON
[2019-08-31] MEDS: NovoLOG Insulin Flexpen SUBQ SCH ×4 (06:30→21:02)
--- NOTE | 2019-08-31 06:30 | NUR ---
NURSE NOTES: Patient refused accucheck, using curse words and stating " I peed on the floor again because I'm pissed, someone left the light on"
--- NOTE | 2019-08-31 07:04 | NUR ---
HAND-OFF: Report given to Celina Melendez patient in stable condition, plan of care endorsed
--- NOTE | 2019-08-31 07:30 | NUR ---
NURSE NOTES: RECEIVED REPORT FROM AL RIVERS. PATIENT ASLEEP IN BED, AROUSABLE AND ABLE TO MAKE NEEDS KNOWN. NO S/SX OF PAIN OR DISCOMFORT. BREATHING IS EVEN AND UNLABORED ON ROOM AIR- NO S/SX OF DISTRESS AT THIS TIME. BED LOCKED AND IN LOWEST POSITION. SIDERAILS UP X 2. CALL LIGHT IN REACH. WILL CONTINUE TO MONITOR.
[2019-08-31 08:00] VITALS: BP 117/71
[2019-08-31 08:12] LABS: HEMOGLOBIN 11.4 G/DL (12.0-16.0); MEAN CORPUSCULAR VOLUME 88 FL (80-99); PLATELET COUNT 53 K/UL (150-450); RED BLOOD COUNT 3.88 M/UL (4.20-5.40)
--- NOTE | 2019-08-31 08:40 | NUR ---
HAND-OFF: Report given to ALFONZO Sheldon RN. PATIENT IN STABLE CONDITION. NO COMPLAINTS OF PAIN OR DISCOMFORT AT TIME OF TRANSFER. BREATHING EVEN AND UNLABORED ON ROOM AIR- NO S/SX OF DISTRESS. ALL BELONGINGS TRANSFERRED WITH PATIENT, INCLUDING CELL PHONE (IPHONE) WITH DIRECTOR OF PRIMARY CARE AND PARTIAL DENTURES.
--- NOTE | 2019-08-31 08:42 | NUR ---
NURSE NOTES: Received patient on bed from Ana MELENDEZ. Awake, alert and oriented x 3-4. No SOB or acute distress. IV line on LFA g24 intact. Old AV fistula on left arm, ok to use left arm for nursing as endorsed. Ambulatory with steady gait. HOB elevated. Bed locked in lowest position. Call light within reach. Will continue plan of care.
[2019-08-31 08:55] LABS: ALANINE AMINOTRANSFERASE 14 U/L (12-78); ALBUMIN 2.1 G/DL (3.4-5.0); ALBUMIN/GLOBULIN RATIO 0.7 (1.0-2.7); ALKALINE PHOSPHATASE 100 U/L (46-116); ANION GAP 8 mmol/L (5-15); ASPARTATE AMINO TRANSFERASE 19 U/L (15-37); BILIRUBIN,TOTAL 0.5 MG/DL (0.2-1.0); BLOOD UREA NITROGEN 7 mg/dL (7-18); CALCIUM 8.2 MG/DL (8.5-10.1); CARBON DIOXIDE 25 MMOL/L (21-32); CHLORIDE 106 MMOL/L (98-107); CREATININE 0.6 MG/DL (0.55-1.30); POTASSIUM 3.7 MMOL/L (3.5-5.1); SODIUM 138 MMOL/L (136-145)
[2019-08-31] MEDS ORDERED: LORazepam 1mg tab ORAL PRN (09:00)
[2019-08-31] MEDS ORDERED: Morphine Sulfate 2mg/ml Inj(IV/IM USE ONLY) IVP PRN (09:00)
[2019-08-31] MEDS ORDERED: HYDROcodone/Acetamin 5/325 tab ORAL PRN (09:00)
[2019-08-31] MEDS: Docusate 100mg cap ORAL SCH ×2 (09:54→20:59)
[2019-08-31] MEDS: dilTIAZem HCl CD 180mg cap ORAL SCH (09:55)
[2019-08-31] MEDS: Metoprolol Succinate XL 50mg tab ORAL SCH (09:55)
--- NOTE | 2019-08-31 11:40 | Cardiology Progress Note ---
Assessment/Plan Status: stable Assessment/Plan Assessment/Plan Assessment/Plan: 53-year-old AAF with PMH of renal transplant 5 years ago, DM type II, who presented to the ED for rash that began 6 days ago. Cardiology consulted for heart block MOBITZ II Continue to monitor on telemetry Patient having premature atrial contracts that are blocked, avoid vagal manuvers , no indication for pacemaker Patient having runs or SVT from PACs -ContinueToprol XL to reduce ectopy D/c with ziopatch Echocardiogram Replete electrolytes Stress test as outpatient Caution with atropine in case of infra alejo heart block which will worsen conduction Aggressive glucose control as hyperglycemia can damage conduction system psych consulted for medication compliance Subjective Cardiovascular: Reports: no symptoms Respiratory: Reports: no symptoms Gastrointestinal/Abdominal: Reports: no symptoms Genitourinary: Reports: no symptoms Subjective No acute events, monitor with no runs overnight, still has PACs Objective Last 24 Hour Vital Signs Date Time Temp Pulse Resp B/P (MAP) Pulse Ox O2 Delivery O2 Flow Rate FiO2 08/31/19 09:55 63 117/71 08/31/19 09:55 63 117/71 08/31/19 08:00 99.0 63 19 117/71 (86) 100 08/30/19 21:00 Room Air 08/30/19 20:00 98.6 83 18 100/60 (73) 97 08/30/19 20:00 86 08/30/19 16:00 98.2 86 20 97/50 (66) 97 08/30/19 16:00 74 08/30/19 12:00 101.5 98 24 120/54 (76) 98 08/30/19 12:00 100 General Appearance: no apparent distress, alert EENT: PERRL/EOMI, normal ENT inspection, TMs normal, pharynx normal Neck: non-tender, normal alignment, supple, normal inspection, no JVD Rhythm: NSR, PACs Cardiovascular: normal peripheral pulses, normal rate, regular rhythm Respiratory/Chest: chest wall non-tender, lungs clear, normal breath sounds, no respiratory distress, no accessory muscle use Abdomen: normal bowel sounds, non tender, soft, no organomegaly, no mass Extremities: normal range of motion, non-tender, normal inspection, no calf tenderness, no swelling 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, no motor/sensory deficits Intake and Output 08/30/19 08/31/19 19:00 07:00 Intake Total 825 ml Balance 825 ml IV Total 825 ml # Voids 8 # Bowel Movements 3 Laboratory Tests Test 08/31/19 07:10 White Blood Count 5.0 K/UL (4.8-10.8) Red Blood Count 3.88 M/UL (4.20-5.40) L Hemoglobin 11.4 G/DL (12.0-16.0) L Hematocrit 34.0 % (37.0-47.0) L Mean Corpuscular Volume 88 FL (80-99) Mean Corpuscular Hemoglobin 29.4 PG (27.0-31.0) Mean Corpuscular Hemoglobin Concent 33.6 G/DL (32.0-36.0) Red Cell Distribution Width 11.0 % (11.6-14.8) L Platelet Count 53 K/UL (150-450) L Mean Platelet Volume FL (6.5-10.1) Neutrophils (%) (Auto) % (45.0-75.0) Lymphocytes (%) (Auto) % (20.0-45.0) Monocytes (%) (Auto) % (1.0-10.0) Eosinophils (%) (Auto) % (0.0-3.0) Basophils (%) (Auto) % (0.0-2.0) Differential Total Cells Counted 100 Neutrophils % (Manual) 68 % (45-75) Lymphocytes % (Manual) 9 % (20-45) L Monocytes % (Manual) 19 % (1-10) H Eosinophils % (Manual) 0 % (0-3) Basophils % (Manual) 0 % (0-2) Band Neutrophils 4 % (0-8) Platelet Estimate Decreased L Platelet Morphology Normal Red Blood Cell Morphology Normal Sodium Level 138 MMOL/L (136-145) Potassium Level 3.7 MMOL/L (3.5-5.1) Chloride Level 106 MMOL/L (98-107) Carbon Dioxide Level 25 MMOL/L (21-32) Anion Gap 8 mmol/L (5-15) Blood Urea Nitrogen 7 mg/dL (7-18) Creatinine 0.6 MG/DL (0.55-1.30) Estimat Glomerular Filtration Rate > 60 mL/min (>60) Glucose Level 249 MG/DL (74-106) H Calcium Level 8.2 MG/DL (8.5-10.1) L Total Bilirubin 0.5 MG/DL (0.2-1.0) Aspartate Amino Transf (AST/SGOT) 19 U/L (15-37) Alanine Aminotransferase (ALT/SGPT) 14 U/L (12-78) Alkaline Phosphatase 100 U/L (46-116) Total Protein 5.3 G/DL (6.4-8.2) L Albumin 2.1 G/DL (3.4-5.0) L Globulin 3.2 g/dL Albumin/Globulin Ratio 0.7 (1.0-2.7) L Microbiology Date/Time Source Procedure Growth Status 08/30/19 08:25 Blood Blood Culture - Preliminary Resulted 08/28/19 19:15 Blood Blood Culture - Final Staphylococcus Aureus Complete 08/28/19 19:00 Blood Blood Culture - Final Staphylococcus Aureus Complete 08/28/19 19:30 Nasal Nares - Final Complete 08/28/19 19:30 Nasal Nares - Final Complete Sumit Tristan MD Aug 31, 2019 11:40
[2019-08-31 12:00] VITALS: BP 119/76
[2019-08-31] MEDS: Vancomycin 1.25gm/NS Premix 275 ML IVPB SCH ×2 (12:57→23:02)
[2019-08-31] MEDS: DiphenhydrAMINE 50mg/ml Inj IVP PRN ×2 (14:26→23:04)
[2019-08-31 16:00] VITALS: BP 118/73
--- NOTE | 2019-08-31 17:43 | General Progress Note ---
Assessment/Plan Status: doing well, stable Assessment/Plan: 53-year-old AAF with PMH of renal transplant 5 years ago, DM type II, who presented to the ED for rash Pt believes this developed as a side effect after recieving the MMR vaccine in late June. On admission patient was found to be in Mobitz type II. Rashes were concerning for disseminated varicella for which patient was admitted for further treatment and evaluation. #Disseminated varicella Continue inpatient medical care Cont. IV Valacyclovir 500 BID IV IV Benadryl for pruritis Air borne precautions ID following Cleared by Ophthalmology #Sepsis, GPC bacteremia -continue vancomycin and monitor levels -follow up final blood cultures -check TTE, will need JOVON if negative -Discussed with ID #Mobitz Type II Seen on EKG on admission pt denies any CP, SOB, palpitations U tox positive for cocaine and cannabis Cardio, Dr. Tristan following No indication for PPM at this time #Acute bacterial conjunctivitis, right eye cont moxifloxacin eye drops #h/o renal transplant pt pending transfer to [facility] for further evaluation and work up, sign out given to accepting MD off mycophenolate per Renal cont Prograf 1 mg bid, levels pending Nephrology recs appreciated #Hypokalemia -replace with oral KCl -monitor BMP #H/o medical non-compliance #Irrational behavior Urine tox positive for THC and cocaine psych following #Diabetes type 2 #Non-compliance #Hyperglycemia obtain A1C ISS, FSBS, insuin 5 U qHS #Hypomagnesemia Replace Continue to monitor, replace as needed DVT PPx: lovenox Extra 35 mins spent on chart review, including labs, medications, imaging, prior physician documentation. Time of note doesn't reflect time of encounter. Subjective Date patient seen: Aug 31, 2019 Constitutional: Denies: no symptoms, chills, diaphoresis, fever, malaise, weakness, other HEENT: Denies: no symptoms, eye pain, blurred vision, tearing, double vision, ear pain, ear discharge, nose pain, nose congestion, throat pain, throat swelling, mouth pain, mouth swelling, other Cardiovascular: Denies: no symptoms, chest pain, edema, irregular heart rate, lightheadedness, palpitations, syncope, other Respiratory: Denies: no symptoms, cough, orthopnea, shortness of breath, SOB with excertion, SOB at rest, sputum, stridor, wheezing, other Gastrointestinal/Abdominal: Denies: no symptoms, abdomen distended, abdominal pain, black stools, tarry stools, blood in stool, constipated, diarrhea, difficulty swallowing, nausea, poor appetite, poor fluid intake, rectal bleeding , vomiting, other Genitourinary: Denies: no symptoms, burning, discharge, frequency, flank pain, hematuria, incontinence, pain, urgency, other Neurologic/Psychiatric: Denies: no symptoms, anxiety, depressed, emotional problems, headache, numbness, paresthesia, pre-existing deficit, seizure, tingling, tremors, weakness, other Endocrine: Denies: no symptoms, excessive sweating, flushing, intolerance to cold, intolerance to heat, increased hunger, increased thirst, increased urine, unexplained weight gain, unexplained weight loss, other Hematologic/Lymphatic: Denies: no symptoms, anemia, easy bleeding, easy bruising, other Allergies: Coded Allergies: No Known Allergies (Unverified , 10/21/17) Subjective resting in bed. denies any pain from varicella lesions. no other issues. wants to go home. Objective Last 24 Hour Vital Signs Date Time Temp Pulse Resp B/P (MAP) Pulse Ox O2 Delivery O2 Flow Rate FiO2 08/31/19 12:00 98.9 69 18 119/76 (90) 99 08/31/19 09:55 63 117/71 08/31/19 09:55 63 117/71 08/31/19 09:00 Room Air 08/31/19 08:00 99.0 63 19 117/71 (86) 100 08/30/19 21:00 Room Air 08/30/19 20:00 98.6 83 18 100/60 (73) 97 08/30/19 20:00 86 Intake and Output 08/30/19 08/31/19 19:00 07:00 Intake Total 825 ml Balance 825 ml IV Total 825 ml # Voids 8 # Bowel Movements 3 Laboratory Tests 08/31/19 07:10: White Blood Count 5.0, Red Blood Count 3.88L, Hemoglobin 11.4L, Hematocrit 34.0L , Mean Corpuscular Volume 88, Mean Corpuscular Hemoglobin 29.4, Mean Corpuscular Hemoglobin Concent 33.6, Red Cell Distribution Width 11.0L, Platelet Count 53L, Mean Platelet Volume , Neutrophils (%) (Auto) , Lymphocytes (%) (Auto) , Monocytes (%) (Auto) , Eosinophils (%) (Auto) , Basophils (%) (Auto ) , Differential Total Cells Counted 100, Neutrophils % (Manual) 68, Lymphocytes % (Manual) 9L, Monocytes % (Manual) 19H, Eosinophils % (Manual) 0, Basophils % (Manual) 0, Band Neutrophils 4, Platelet Estimate DecreasedL, Platelet Morphology Normal, Red Blood Cell Morphology Normal, Sodium Level 138, Potassium Level 3.7, Chloride Level 106, Carbon Dioxide Level 25, Anion Gap 8, Blood Urea Nitrogen 7, Creatinine 0.6, Estimat Glomerular Filtration Rate > 60, Glucose Level 249H, Calcium Level 8.2L, Total Bilirubin 0.5, Aspartate Amino Transf (AST/SGOT) 19, Alanine Aminotransferase (ALT/SGPT) 14, Alkaline Phosphatase 100, Total Protein 5.3L, Albumin 2.1L, Globulin 3.2, Albumin/ Globulin Ratio 0.7L Height (Feet): 5 Height (Inches): 1.00 Weight (Pounds): 93 General Appearance: alert Neck: supple Cardiovascular: normal rate, regular rhythm Respiratory/Chest: lungs clear, normal breath sounds Abdomen: non tender, soft Skin: other - numerous varicella lesions, crusted, scabbing. Jonna Lundberg M.D. Aug 31, 2019 17:43
--- NOTE | 2019-08-31 19:13 | NUR ---
HAND-OFF: Report given to kierra.
--- NOTE | 2019-08-31 19:14 | NUR ---
NURSE NOTES: Pt. received from AL Pulido. Pt. AAOx4, on room air, no indications of shortness of breath, no complaints of pain. IV left forearm 24g asymptomatic, intact, and patent; saline locked. Bed is low and locked, side rails x2 up, call light is in reach. Will continue to monitor.
[2019-08-31] MEDS ORDERED: Atropine Inj 1mg/10ml Syr IVP PRN (19:45)
[2019-08-31 20:00] VITALS: BP 106/62
[2019-08-31] MEDS: Levemir Flexpen SUBQ SCH (21:02)
[2019-09-01] VITALS: BP 118/70
[2019-09-01] MEDS: Vigamox Opth Soln 3ml RIGHT EYE SCH ×6 (01:46→21:00)
[2019-09-01] MEDS: Acyclovir 500 MG in D5W 110 ML IV SCH ×3 (01:46→17:31)
[2019-09-01 04:00] VITALS: BP 108/65
[2019-09-01] MEDS: NovoLOG Insulin Flexpen SUBQ SCH ×4 (05:48→22:20)
--- NOTE | 2019-09-01 07:30 | NUR ---
NURSE NOTES: Received patient AAOx4, on room air, no indications of shortness of breath, no complaints of pain. IV left forearm 24g asymptomatic, intact, and patent; saline locked. Bed is low and locked, side rails x2 up, call light is in reach. Will continue to monitor.
--- NOTE | 2019-09-01 07:39 | NUR ---
NURSE NOTES: Message left for Dr. Roach regarding preliminary blood culture results.
--- NOTE | 2019-09-01 07:40 | NUR ---
HAND-OFF: Report given to KYLE Ambriz.
[2019-09-01 08:00] VITALS: BP 103/60
[2019-09-01] MEDS: dilTIAZem HCl CD 180mg cap ORAL SCH (09:00)
[2019-09-01] MEDS: Metoprolol Succinate XL 50mg tab ORAL SCH (09:00)
[2019-09-01] MEDS: Docusate 100mg cap ORAL SCH ×2 (09:26→21:00)
[2019-09-01] MEDS: Vancomycin 1.25gm/NS Premix 275 ML IVPB SCH (11:05)
[2019-09-01 12:00] VITALS: BP 110/69
[2019-09-01] MEDS ORDERED: LORazepam 1mg tab ORAL PRN (14:00)
[2019-09-01 16:00] VITALS: BP 108/62
--- NOTE | 2019-09-01 16:46 | General Progress Note ---
Assessment/Plan Status: doing well, stable Assessment/Plan: 53-year-old AAF with PMH of renal transplant 5 years ago, DM type II, who presented to the ED for rash Pt believes this developed as a side effect after recieving the MMR vaccine in late June. On admission patient was found to be in Mobitz type II. Rashes were concerning for disseminated varicella for which patient was admitted for further treatment and evaluation. #Disseminated varicella Continue inpatient medical care Cont. IV Valacyclovir 500 BID IV IV Benadryl for pruritis Air borne precautions ID following Cleared by Ophthalmology #Sepsis, GPC bacteremia -continue vancomycin and monitor levels -follow up final blood cultures -check TTE, will need JOVON if negative -Discussed with ID #Mobitz Type II Seen on EKG on admission pt denies any CP, SOB, palpitations U tox positive for cocaine and cannabis Cardio, Dr. Tristan following No indication for PPM at this time #Acute bacterial conjunctivitis, right eye cont moxifloxacin eye drops #h/o renal transplant pt pending transfer to [facility] for further evaluation and work up, sign out given to accepting MD off mycophenolate per Renal cont Prograf 1 mg bid, levels pending Nephrology recs appreciated #Hypokalemia -replace with oral KCl -monitor BMP #H/o medical non-compliance #Irrational behavior Urine tox positive for THC and cocaine psych following #Diabetes type 2 #Non-compliance #Hyperglycemia obtain A1C ISS, FSBS, insuin 5 U qHS #Hypomagnesemia Replace Continue to monitor, replace as needed DVT PPx: lovenox Time spent: 37 mins, >50% on counseling, coordination of care. Time of note doesn't reflect time of encounter. Subjective Date patient seen: Sep 01, 2019 Constitutional: Denies: no symptoms, chills, diaphoresis, fever, malaise, weakness, other HEENT: Denies: no symptoms, eye pain, blurred vision, tearing, double vision, ear pain, ear discharge, nose pain, nose congestion, throat pain, throat swelling, mouth pain, mouth swelling, other Cardiovascular: Denies: no symptoms, chest pain, edema, irregular heart rate, lightheadedness, palpitations, syncope, other Respiratory: Denies: no symptoms, cough, orthopnea, shortness of breath, SOB with excertion, SOB at rest, sputum, stridor, wheezing, other Gastrointestinal/Abdominal: Denies: no symptoms, abdomen distended, abdominal pain, black stools, tarry stools, blood in stool, constipated, diarrhea, difficulty swallowing, nausea, poor appetite, poor fluid intake, rectal bleeding , vomiting, other Genitourinary: Denies: no symptoms, burning, discharge, frequency, flank pain, hematuria, incontinence, pain, urgency, other Neurologic/Psychiatric: Denies: no symptoms, anxiety, depressed, emotional problems, headache, numbness, paresthesia, pre-existing deficit, seizure, tingling, tremors, weakness, other Endocrine: Denies: no symptoms, excessive sweating, flushing, intolerance to cold, intolerance to heat, increased hunger, increased thirst, increased urine, unexplained weight gain, unexplained weight loss, other Hematologic/Lymphatic: Denies: no symptoms, anemia, easy bleeding, easy bruising, other Allergies: Coded Allergies: No Known Allergies (Unverified , 10/21/17) Subjective friends in the room. eating outside food. denies any fever, chills, pain. skin lesions crusting more and improving. Objective Last 24 Hour Vital Signs Date Time Temp Pulse Resp B/P (MAP) Pulse Ox O2 Delivery O2 Flow Rate FiO2 09/01/19 16:00 98.2 63 18 108/62 (77) 100 09/01/19 12:00 98.8 78 17 110/69 (83) 96 09/01/19 09:57 98.8 09/01/19 09:00 Room Air 09/01/19 09:00 76 103/60 09/01/19 09:00 76 103/60 09/01/19 08:00 100.0 76 18 103/60 (74) 99 09/01/19 04:00 97.2 58 19 108/65 (79) 97 09/01/19 00:00 98.4 83 18 118/70 (86) 97 08/31/19 21:00 Room Air 08/31/19 20:00 98.6 72 18 106/62 (77) 95 Intake and Output 08/31/19 09/01/19 19:00 07:00 Intake Total 75 ml 2660.000 ml Output Total 1250 ml Balance 75 ml 1410.000 ml IV Total 75 ml 1060.000 ml Other 1600 ml Output Urine Total 1250 ml # Voids 2 Laboratory Tests 08/31/19 23:19: Vancomycin Level Trough 16.9H Height (Feet): 5 Height (Inches): 1.00 Weight (Pounds): 93 General Appearance: no apparent distress, alert Neck: supple Cardiovascular: normal rate, regular rhythm Respiratory/Chest: lungs clear, normal breath sounds Abdomen: non tender, soft Neurologic: alert, oriented x 3 Skin: other - crusted varicella lesions Jonna Lundberg M.D. Sep 01, 2019 16:46
[2019-09-01] MEDS: DiphenhydrAMINE 50mg/ml Inj IVP PRN (17:32)
--- NOTE | 2019-09-01 19:01 | NUR ---
HAND-OFF: Report given to
[2019-09-01 20:00] VITALS: BP 118/76
--- NOTE | 2019-09-01 20:30 | Infectious Diseases Prog Note ---
Assessment/Plan Assessment/Plan ASSESSMENT AND PLAN: 1. disseminated varicella virus infection, airborne isolation staph aureus/mssa/streptococcus bacteremia, sepsis, ? endocarditis, right arm cellulitis with infiltrated iv that was changed - iv acyclovir - day # 8 - change to oral acyclovir x 1 week - change vancomycin to cefazolin - day # 5 abx - lesions crusting - monitor low grade temperatures - check final blood culture results - monitor labs, f/u on TTE, may need JOVON - surveillance cultures - influenza negative - monitor right arm cellulitis/swelling - improved 2. Right eye conjunctivitis - less drainage, improved, cleared by ophthalmology , moxifloxacin eye drops 3. Renal transplant patient. 4. Diabetes. 5. Questionable hypertension. 6. Blood sugar treatment per primary care team for diabetes type 2. 7. Urine drug screen positive for cocaine and THC. 8. The patient is renal transplant patient and is immunocompromised. 9. Mobitz type 2 heart block. Treatment per Cardiology. 10. Continue treatment primary consultants. 11. No known drug allergies. 12. Social history looks like positive for THC and cocaine, but no history of smoking and alcohol per discussion with the patient. 13. Family history is noncontributory. 14. MAR is noted. 15. Case was discussed with RN. Subjective Constitutional: Reports: fever, fatigue, other - fever curve better HEENT: Reports: other - right eye vision better ; Denies: dysphagia, congestion Respiratory: Denies: shortness of breath Cardiovascular: Denies: chest pain Gastrointestinal/Abdominal: Denies: nausea, vomiting, diarrhea Genitourinary: Denies: dysuria, hematuria, frequency Neurologic: Denies: headache Psychiatric: Denies: depression Skin: Reports: rash - rash dryer Hematologic: Denies: bleeding Musculoskeletal: Denies: pain Allergies: Coded Allergies: No Known Allergies (Unverified , 10/21/17) Objective Vital Signs Last 24 Hour Vital Signs Date Time Temp Pulse Resp B/P (MAP) Pulse Ox O2 Delivery O2 Flow Rate FiO2 09/01/19 16:00 98.2 63 18 108/62 (77) 100 09/01/19 12:00 98.8 78 17 110/69 (83) 96 09/01/19 09:57 98.8 09/01/19 09:00 Room Air 09/01/19 09:00 76 103/60 09/01/19 09:00 76 103/60 09/01/19 08:00 100.0 76 18 103/60 (74) 99 09/01/19 04:00 97.2 58 19 108/65 (79) 97 09/01/19 00:00 98.4 83 18 118/70 (86) 97 08/31/19 21:00 Room Air Height (Feet): 5 Height (Inches): 1.00 Weight (Pounds): 93 General Appearance: no acute distress HEENT: normocephalic, atraumatic, anicteric, mucous membranes moist Respiratory/Chest: lungs clear, normal breath sounds, no respiratory distress, no accessory muscle use Cardiovascular: normal rate, regular rhythm, no gallop/murmur, no JVD Abdomen: normal bowel sounds, soft, non tender, no organomegaly, non distended Genitourinary: other - no forte, no cva pain Extremities: no cyanosis Skin: rash - lesions crusted 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 COMPARISON: No relevant prior studies available. FINDINGS: Lungs: No consolidation. Pleural space: Unremarkable. No pneumothorax. Heart: Unremarkable. No cardiomegaly. Mediastinum: Unremarkable. Bones/joints: No acute fracture. IMPRESSION: No acute cardiopulmonary disease. 08/29/19 - chest x-ray - nad, report noted Microbiology Date/Time Source Procedure Growth Status 08/30/19 08:25 Blood Blood Culture - Preliminary Strep Species, Beta Hemolytic Staphylococcus Species Resulted 08/28/19 19:30 Nasal Nares - Final Complete 08/28/19 19:30 Nasal Nares - Final Complete Microbiology Date/Time Source Procedure Growth Status 08/30/19 08:25 Blood Blood Culture - Preliminary Strep Species, Beta Hemolytic Staphylococcus Species Resulted 08/30/19 08:10 Blood Blood Culture - Preliminary Strep Species, Beta Hemolytic Resulted initial bc - mssa Labs Test 08/30/19 08:10 08/31/19 07:10 08/31/19 23:19 White Blood Count 6.8 K/UL (4.8-10.8) 5.0 K/UL (4.8-10.8) Red Blood Count 4.72 M/UL (4.20-5.40) 3.88 M/UL (4.20-5.40) Hemoglobin 14.0 G/DL (12.0-16.0) 11.4 G/DL (12.0-16.0) Hematocrit 41.5 % (37.0-47.0) 34.0 % (37.0-47.0) Mean Corpuscular Volume 88 FL (80-99) 88 FL (80-99) Mean Corpuscular Hemoglobin 29.7 PG (27.0-31.0) 29.4 PG (27.0-31.0) Mean Corpuscular Hemoglobin Concent 33.9 G/DL (32.0-36.0) 33.6 G/DL (32.0-36.0) Red Cell Distribution Width 11.1 % (11.6-14.8) 11.0 % (11.6-14.8) Platelet Count 52 K/UL (150-450) 53 K/UL (150-450) Mean Platelet Volume 16.1 FL (6.5-10.1) FL (6.5-10.1) Neutrophils (%) (Auto) % (45.0-75.0) % (45.0-75.0) Lymphocytes (%) (Auto) % (20.0-45.0) % (20.0-45.0) Monocytes (%) (Auto) % (1.0-10.0) % (1.0-10.0) Eosinophils (%) (Auto) % (0.0-3.0) % (0.0-3.0) Basophils (%) (Auto) % (0.0-2.0) % (0.0-2.0) Differential Total Cells Counted 100 100 Neutrophils % (Manual) 71 % (45-75) 68 % (45-75) Lymphocytes % (Manual) 19 % (20-45) 9 % (20-45) Monocytes % (Manual) 10 % (1-10) 19 % (1-10) Eosinophils % (Manual) 0 % (0-3) 0 % (0-3) Basophils % (Manual) 0 % (0-2) 0 % (0-2) Band Neutrophils 0 % (0-8) 4 % (0-8) Platelet Estimate Decreased Decreased Platelet Morphology Normal Normal Red Blood Cell Morphology Normal Normal Sodium Level 136 MMOL/L (136-145) 138 MMOL/L (136-145) Potassium Level 3.6 MMOL/L (3.5-5.1) 3.7 MMOL/L (3.5-5.1) Chloride Level 100 MMOL/L (98-107) 106 MMOL/L (98-107) Carbon Dioxide Level 27 MMOL/L (21-32) 25 MMOL/L (21-32) Anion Gap 9 mmol/L (5-15) 8 mmol/L (5-15) Blood Urea Nitrogen 8 mg/dL (7-18) 7 mg/dL (7-18) Creatinine 0.8 MG/DL (0.55-1.30) 0.6 MG/DL (0.55-1.30) Estimat Glomerular Filtration Rate > 60 mL/min (>60) > 60 mL/min (>60) Glucose Level 158 MG/DL (74-106) 249 MG/DL (74-106) Calcium Level 9.2 MG/DL (8.5-10.1) 8.2 MG/DL (8.5-10.1) Total Bilirubin 0.7 MG/DL (0.2-1.0) 0.5 MG/DL (0.2-1.0) Aspartate Amino Transf (AST/SGOT) 18 U/L (15-37) 19 U/L (15-37) Alanine Aminotransferase (ALT/SGPT) 19 U/L (12-78) 14 U/L (12-78) Alkaline Phosphatase 111 U/L (46-116) 100 U/L (46-116) Total Protein 6.3 G/DL (6.4-8.2) 5.3 G/DL (6.4-8.2) Albumin 2.7 G/DL (3.4-5.0) 2.1 G/DL (3.4-5.0) Globulin 3.6 g/dL 3.2 g/dL Albumin/Globulin Ratio 0.8 (1.0-2.7) 0.7 (1.0-2.7) Vancomycin Level Trough 8.2 ug/mL (5.0-12.0) 16.9 ug/mL (5.0-12.0) Laboratory Tests Test 08/31/19 23:19 Vancomycin Level Trough 16.9 ug/mL (5.0-12.0) H Current Medications Medications (Trade) Dose Ordered Sig/Karine Route PRN Reason Start Time Stop Time Status Last Admin Dose Admin Acetaminophen (Tylenol) 650 mg Q4H PRN ORAL fever 08/31/19 09:00 09/23/19 08:59 09/01/19 09:27 Acetaminophen (Tylenol) 650 mg Q4H PRN ORAL Mild Pain (Pain Scale 1-3) 08/31/19 09:00 09/23/19 08:59 Acyclovir 500 mg/ Dextrose 110 ml @ 110 mls/hr Q8H IV 08/31/19 09:00 09/24/19 16:59 09/01/19 17:31 Dextrose (Dextrose 50%) 25 ml Q30M PRN IV Hypoglycemia 08/31/19 08:45 09/24/19 00:44 Dextrose (Dextrose 50%) 50 ml Q30M PRN IV Hypoglycemia 08/31/19 08:45 09/24/19 00:44 Diltiazem HCl (Cardizem CD) 180 mg DAILY ORAL 08/31/19 09:00 09/24/19 12:59 08/31/19 09:55 Diphenhydramine HCl (Benadryl) 25 mg Q6H PRN IVP Itching 08/31/19 09:00 09/25/19 08:59 09/01/19 17:32 Docusate Sodium (Colace) 100 mg EVERY 12 HOURS ORAL 08/31/19 09:00 09/24/19 08:59 09/01/19 09:26 Insulin Aspart (NovoLOG) BEFORE MEALS AND HS SUBQ 08/31/19 11:30 09/24/19 16:29 09/01/19 17:15 Insulin Detemir (Levemir) 5 units QHS SUBQ 08/31/19 21:00 09/23/19 22:44 08/31/19 21:02 Lorazepam (Ativan) 1 mg Q6H PRN ORAL For Anxiety 09/01/19 14:00 09/03/19 13:59 Metoprolol Succinate (Toprol XL) 50 mg DAILY ORAL 08/31/19 09:00 09/29/19 08:59 08/31/19 09:55 Mirtazapine (Remeron) 7.5 mg BEDTIME PRN ORAL insomnia 08/31/19 21:00 09/26/19 20:59 Moxifloxacin HCl (Vigamox) 2 drop Q4HR RIGHT EYE 09/01/19 17:00 09/04/19 07:59 09/01/19 17:14 Ondansetron HCl (Zofran) 4 mg Q6H PRN IVP Nausea & Vomiting 08/31/19 09:00 09/23/19 08:59 Pantoprazole (Protonix) 40 mg DAILY ORAL 08/31/19 09:00 09/24/19 08:59 09/01/19 09:27 Prednisone (predniSONE) 5 mg DAILY ORAL 08/31/19 09:00 09/24/19 08:59 09/01/19 09:26 Sodium Chloride 1,000 ml @ 75 mls/hr [id number] IV 08/31/19 08:45 09/24/19 01:29 09/01/19 12:19 Tacrolimus (Prograf) 1 mg EVERY 12 HOURS ORAL 08/31/19 09:00 09/26/19 12:19 09/01/19 09:26 Vancomycin HCl (Vanco rx to dose) 1 ea DAILY PRN MISC Per rx protocol 08/31/19 09:00 09/27/19 16:44 Vancomycin/Sodium Chloride 275 ml @ 183.333 mls/hr Q12HR@0000,1200 IVPB 08/31/19 12:00 09/04/19 11:29 09/01/19 11:05 Juana Roach MD Sep 01, 2019 20:30
--- NOTE | 2019-09-01 20:35 | NUR ---
NURSE NOTES: Patient is awake, alert x 4. Able to make needs known. Skin is warm and dry to touch. ON airborne precaution, observed. Educated patient regarding the current precaution. No complaint of pain or discomfort noted at this time. Respiration is even and unlabored. Abdomen is soft and non distended. Iv site noted, iv fluid is infusing as ordered. Bed in low and locked position. Call light is at bedside. Will continue plan of care.
[2019-09-01] MEDS: ceFAZolin sod 2 GM in D5W 110 ML IVPB SCH (22:09)
[2019-09-01] MEDS: Levemir Flexpen SUBQ SCH (22:19)
[2019-09-01] MEDS ORDERED: NovoLOG Insulin Flexpen SUBQ ONE (22:45)
--- NOTE | 2019-09-01 23:58 | NUR ---
NURSE NOTES: Patient asked for benadryl 15 min ago. Went to the room, refused medication. Will waste remaining benadryl.
[2019-09-02] VITALS: BP 114/68
[2019-09-02] MEDS: Vigamox Opth Soln 3ml RIGHT EYE SCH ×6 (01:00→21:00)
[2019-09-02 04:00] VITALS: BP 120/72
[2019-09-02] MEDS: NovoLOG Insulin Flexpen SUBQ SCH ×4 (06:22→21:56)
[2019-09-02] MEDS: ceFAZolin sod 2 GM in D5W 110 ML IVPB SCH ×3 (06:27→21:45)
--- NOTE | 2019-09-02 06:30 | NUR ---
NURSE NOTES: Blood sugar checked 67. Asymptomatic. Given Apple juice x 3. Will inform MD. Call light is at bedside. Will continue plan of care.
[2019-09-02 06:55] LABS: BASOPHILS % (AUTO) 6.5 % (0.0-2.0); EOSINOPHILS % (AUTO) 0.9 % (0.0-3.0); HEMATOCRIT 35.6 % (37.0-47.0); HEMOGLOBIN 12.3 G/DL (12.0-16.0); LYMPHOCYTES % (AUTO) 16.7 % (20.0-45.0); MEAN CORPUSCULAR VOLUME 88 FL (80-99); MONOCYTES % (AUTO) 12.9 % (1.0-10.0); NEUTROPHILS % (AUTO) 63.1 % (45.0-75.0); PLATELET COUNT 130 K/UL (150-450); RED BLOOD COUNT 4.06 M/UL (4.20-5.40); RED CELL DISTRIBUTION WIDTH 10.9 % (11.6-14.8)
--- NOTE | 2019-09-02 07:14 | NUR ---
HAND-OFF: Report given to Celina Arana. Addendum: 09/02/19 at 0717 by EULOGIO CORLEY RN RN NURSE NOTES: Patient is asymptomatic. Endorsed to next shift regarding following up with blood sugar.
--- NOTE | 2019-09-02 07:15 | NUR ---
HAND-OFF: Report given to Celina Arana.
--- NOTE | 2019-09-02 07:30 | NUR ---
NURSE NOTES: Received patient on bed, awake. IV site intact and patent. Bed in low and locked position, call light in reach. No sign or respiratory distress or pain. Room board updated, will continue to monitor.
[2019-09-02 08:19] VITALS: BP 130/73
[2019-09-02 08:24] LABS: ALANINE AMINOTRANSFERASE 19 U/L (12-78); ALBUMIN 2.4 G/DL (3.4-5.0); ALBUMIN/GLOBULIN RATIO 0.6 (1.0-2.7); ALKALINE PHOSPHATASE 135 U/L (46-116); ANION GAP 14 mmol/L (5-15); ASPARTATE AMINO TRANSFERASE 37 U/L (15-37); BILIRUBIN,TOTAL 0.3 MG/DL (0.2-1.0); BLOOD UREA NITROGEN 6 mg/dL (7-18); CALCIUM 8.9 MG/DL (8.5-10.1); CARBON DIOXIDE 22 MMOL/L (21-32); CHLORIDE 110 MMOL/L (98-107); CREATININE 0.6 MG/DL (0.55-1.30); POTASSIUM 3.9 MMOL/L (3.5-5.1); SODIUM 146 MMOL/L (136-145)
--- NOTE | 2019-09-02 08:26 | Cardiology Progress Note ---
Assessment/Plan Status: stable Assessment/Plan Assessment/Plan Assessment/Plan: 53-year-old AAF with PMH of renal transplant 5 years ago, DM type II, who presented to the ED for rash that began 6 days ago. Cardiology consulted for heart block MOBITZ II Continue to monitor on telemetry Patient having premature atrial contracts that are blocked, avoid vagal manuvers , no indication for pacemaker Patient having runs or SVT from PACs -ContinueToprol XL to reduce ectopy D/c with ziopatch Echocardiogram Replete electrolytes Stress test as outpatient Caution with atropine in case of infra alejo heart block which will worsen conduction Aggressive glucose control as hyperglycemia can damage conduction system psych consulted for medication compliance Subjective Cardiovascular: Reports: no symptoms Respiratory: Reports: no symptoms Gastrointestinal/Abdominal: Reports: no symptoms Genitourinary: Reports: no symptoms Subjective No acute events, monitor with no runs overnight, still has PACs, no chest pain no SOB. C/o diffuse body pains Objective Last 24 Hour Vital Signs Date Time Temp Pulse Resp B/P (MAP) Pulse Ox O2 Delivery O2 Flow Rate FiO2 09/02/19 08:19 98.5 74 20 130/73 (92) 100 09/02/19 04:00 97.9 69 18 120/72 (88) 98 09/02/19 00:00 97.8 68 18 114/68 (83) 99 09/01/19 21:00 Room Air 09/01/19 20:00 98.7 63 18 118/76 (90) 100 09/01/19 16:00 98.2 63 18 108/62 (77) 100 09/01/19 12:00 98.8 78 17 110/69 (83) 96 09/01/19 09:57 98.8 09/01/19 09:00 Room Air 09/01/19 09:00 76 103/60 09/01/19 09:00 76 103/60 General Appearance: no apparent distress, alert EENT: PERRL/EOMI, normal ENT inspection, TMs normal, pharynx normal Neck: non-tender, normal alignment, supple, normal inspection, no JVD Rhythm: NSR, PACs Cardiovascular: normal peripheral pulses, normal rate Respiratory/Chest: chest wall non-tender, lungs clear, normal breath sounds, no respiratory distress, no accessory muscle use Abdomen: normal bowel sounds, non tender, soft, no organomegaly, no mass Extremities: normal range of motion, non-tender, normal inspection, no calf tenderness, no swelling Neurologic: roasterman II-XII grossly normal, no motor/sensory deficits Intake and Output 09/01/19 09/02/19 19:00 07:00 Intake Total 1090.000 ml 860 ml Balance 1090.000 ml 860 ml Intake Oral 480 ml IV Total 610.000 ml 860 ml # Voids 3 2 Laboratory Tests Test 09/02/19 05:50 White Blood Count 7.0 K/UL (4.8-10.8) Red Blood Count 4.06 M/UL (4.20-5.40) L Hemoglobin 12.3 G/DL (12.0-16.0) Hematocrit 35.6 % (37.0-47.0) L Mean Corpuscular Volume 88 FL (80-99) Mean Corpuscular Hemoglobin 30.3 PG (27.0-31.0) Mean Corpuscular Hemoglobin Concent 34.6 G/DL (32.0-36.0) Red Cell Distribution Width 10.9 % (11.6-14.8) L Platelet Count 130 K/UL (150-450) L Mean Platelet Volume 14.1 FL (6.5-10.1) H Neutrophils (%) (Auto) 63.1 % (45.0-75.0) Lymphocytes (%) (Auto) 16.7 % (20.0-45.0) L Monocytes (%) (Auto) 12.9 % (1.0-10.0) H Eosinophils (%) (Auto) 0.9 % (0.0-3.0) Basophils (%) (Auto) 6.5 % (0.0-2.0) H Sodium Level 146 MMOL/L (136-145) H Potassium Level 3.9 MMOL/L (3.5-5.1) Chloride Level 110 MMOL/L (98-107) H Carbon Dioxide Level 22 MMOL/L (21-32) Anion Gap 14 mmol/L (5-15) Blood Urea Nitrogen 6 mg/dL (7-18) L Creatinine 0.6 MG/DL (0.55-1.30) Estimat Glomerular Filtration Rate > 60 mL/min (>60) Glucose Level 79 MG/DL (74-106) Calcium Level 8.9 MG/DL (8.5-10.1) Total Bilirubin 0.3 MG/DL (0.2-1.0) Aspartate Amino Transf (AST/SGOT) 37 U/L (15-37) Alanine Aminotransferase (ALT/SGPT) 19 U/L (12-78) Alkaline Phosphatase 135 U/L (46-116) H Total Protein 6.2 G/DL (6.4-8.2) L Albumin 2.4 G/DL (3.4-5.0) L Globulin 3.8 g/dL Albumin/Globulin Ratio 0.6 (1.0-2.7) L Sumit Tristan MD Sep 02, 2019 08:26
[2019-09-02] MEDS: Metoprolol Succinate XL 50mg tab ORAL SCH (08:46)
[2019-09-02] MEDS: dilTIAZem HCl CD 180mg cap ORAL SCH (08:46)
[2019-09-02] MEDS: Docusate 100mg cap ORAL SCH ×2 (08:47→21:45)
[2019-09-02] MEDS: DiphenhydrAMINE 50mg/ml Inj IVP PRN ×2 (09:59→21:45)
--- NOTE | 2019-09-02 10:00 | NUR ---
NURSE NOTES: Patient initially refused 2D echo but the agreed to have it done. Cardiology left and were left a message about the patient agreeing to shantell test. Charge nurse made aware, awaiting return of tech.
[2019-09-02 12:00] VITALS: BP 111/71
--- NOTE | 2019-09-02 13:59 | NUR ---
*-* INSURANCE *-* ALL CLINICALS AND REVIEWS HAVE BEEN FAXED TO: [facility] P: [phone] F: [phone] [facility] AUTH# [id number] FAX ALL CLINICALS TO [phone]
--- NOTE | 2019-09-02 14:19 | NUR ---
CASE MANAGEMENT:REVIEW SI;DISSEMINATED VARICELLA. SEPSIS. BACTEREMIA. DM. 98.6 74 20 130/73 98% ON RA NA 146 CL 110 IS;ACYCLOVIR PO 5X DAY CEFAZOLIN IV Q8 HRS DILTIAZEM PO QD TOPROL XL PO QD PREDNISONE PO QD IVF NS @ 75 ML/HR MED SURG STATUS PLAN OF CARE; REPLETE ELECTROLYTES 2D ECHO DCP;FROM HOME WHEN MEDICALLY CLEARED
--- NOTE | 2019-09-02 15:47 | General Progress Note ---
Assessment/Plan Status: doing well, stable Assessment/Plan: 53-year-old AAF with PMH of renal transplant 5 years ago, DM type II, who presented to the ED for rash Pt believes this developed as a side effect after recieving the MMR vaccine in late June. On admission patient was found to be in Mobitz type II. Rashes were concerning for disseminated varicella for which patient was admitted for further treatment and evaluation. #Disseminated varicella Continue inpatient medical care Cont. IV Valacyclovir 500 BID IV IV Benadryl for pruritis Air borne precautions ID following Cleared by Ophthalmology #Sepsis, GPC bacteremia -continue vancomycin and monitor levels -follow up repeat BCx. -check TTE, will need JOVON if negative -Discussed with ID #Mobitz Type II Seen on EKG on admission pt denies any CP, SOB, palpitations U tox positive for cocaine and cannabis Cardio, Dr. Tristan following No indication for PPM at this time #Acute bacterial conjunctivitis, right eye cont moxifloxacin eye drops #h/o renal transplant pt pending transfer to [facility] for further evaluation and work up, sign out given to accepting MD off mycophenolate per Renal cont Prograf 1 mg bid, levels pending Nephrology recs appreciated #Hypokalemia -replace with oral KCl -monitor BMP #H/o medical non-compliance #Irrational behavior Urine tox positive for THC and cocaine psych following #Diabetes type 2 #Non-compliance #Hyperglycemia obtain A1C ISS, FSBS, insuin 5 U qHS #Hypomagnesemia Replace Continue to monitor, replace as needed #Hypernatremia -encourage PO intake. DVT PPx: lovenox Time of note doesn't reflect time of encounter. Subjective Date patient seen: Sep 02, 2019 Constitutional: Denies: no symptoms, chills, diaphoresis, fever, malaise, weakness, other HEENT: Denies: no symptoms, eye pain, blurred vision, tearing, double vision, ear pain, ear discharge, nose pain, nose congestion, throat pain, throat swelling, mouth pain, mouth swelling, other Cardiovascular: Denies: no symptoms, chest pain, edema, irregular heart rate, lightheadedness, palpitations, syncope, other Respiratory: Denies: no symptoms, cough, orthopnea, shortness of breath, SOB with excertion, SOB at rest, sputum, stridor, wheezing, other Gastrointestinal/Abdominal: Denies: no symptoms, abdomen distended, abdominal pain, black stools, tarry stools, blood in stool, constipated, diarrhea, difficulty swallowing, nausea, poor appetite, poor fluid intake, rectal bleeding , vomiting, other Genitourinary: Denies: no symptoms, burning, discharge, frequency, flank pain, hematuria, incontinence, pain, urgency, other Neurologic/Psychiatric: Denies: no symptoms, anxiety, depressed, emotional problems, headache, numbness, paresthesia, pre-existing deficit, seizure, tingling, tremors, weakness, other Endocrine: Denies: no symptoms, excessive sweating, flushing, intolerance to cold, intolerance to heat, increased hunger, increased thirst, increased urine, unexplained weight gain, unexplained weight loss, other Hematologic/Lymphatic: Denies: no symptoms, anemia, easy bleeding, easy bruising, other Allergies: Coded Allergies: No Known Allergies (Unverified , 10/21/17) Subjective resting in chair. denies any pain or issues. "Feels, looks better." Wondering when she can go home. Objective Last 24 Hour Vital Signs Date Time Temp Pulse Resp B/P (MAP) Pulse Ox O2 Delivery O2 Flow Rate FiO2 09/02/19 12:00 98.6 70 19 111/71 (84) 99 09/02/19 09:00 Room Air 09/02/19 08:46 74 130/73 09/02/19 08:46 74 130/73 09/02/19 08:19 98.5 74 20 130/73 (92) 100 09/02/19 04:00 97.9 69 18 120/72 (88) 98 09/02/19 00:00 97.8 68 18 114/68 (83) 99 09/01/19 21:00 Room Air 09/01/19 20:00 98.7 63 18 118/76 (90) 100 09/01/19 16:00 98.2 63 18 108/62 (77) 100 Intake and Output 09/01/19 09/02/19 19:00 07:00 Intake Total 1090.000 ml 860 ml Balance 1090.000 ml 860 ml Intake Oral 480 ml IV Total 610.000 ml 860 ml # Voids 3 2 Laboratory Tests 09/02/19 05:50: White Blood Count 7.0, Red Blood Count 4.06L, Hemoglobin 12.3, Hematocrit 35.6L , Mean Corpuscular Volume 88, Mean Corpuscular Hemoglobin 30.3, Mean Corpuscular Hemoglobin Concent 34.6, Red Cell Distribution Width 10.9L, Platelet Count 130L, Mean Platelet Volume 14.1H, Neutrophils (%) (Auto) 63.1, Lymphocytes (%) (Auto) 16.7L, Monocytes (%) (Auto) 12.9H, Eosinophils (%) (Auto ) 0.9, Basophils (%) (Auto) 6.5H, Sodium Level 146H, Potassium Level 3.9, Chloride Level 110H, Carbon Dioxide Level 22, Anion Gap 14, Blood Urea Nitrogen 6L, Creatinine 0.6, Estimat Glomerular Filtration Rate > 60, Glucose Level 79, Calcium Level 8.9, Total Bilirubin 0.3, Aspartate Amino Transf (AST/SGOT) 37, Alanine Aminotransferase (ALT/SGPT) 19, Alkaline Phosphatase 135H, Total Protein 6.2L, Albumin 2.4L, Globulin 3.8, Albumin/Globulin Ratio 0.6L Height (Feet): 5 Height (Inches): 1.00 Weight (Pounds): 93 General Appearance: no apparent distress, alert Neck: supple Cardiovascular: normal rate, regular rhythm Respiratory/Chest: lungs clear, normal breath sounds Abdomen: non tender, soft Neurologic: alert, oriented x 3 Skin: other - varicella lesions healing, crusted Jonna Lundberg M.D. Sep 02, 2019 15:47
[2019-09-02 16:00] VITALS: BP 111/69
--- NOTE | 2019-09-02 16:10 | NUR ---
Social Work Patient requested to speak with this SW. This SW met with patient who is requesting to apply for short term disability. Short term disability paperwork provided; patient stating awareness how to complete and apply. No other needs/concerns at this time. Patient remains independent and will return home after discharge.
--- NOTE | 2019-09-02 19:10 | NUR ---
HAND-OFF: Report given to AL Yan.
--- NOTE | 2019-09-02 19:28 | NUR ---
NURSE NOTES: Patient in bed, awake, alert and verbally responsive. Able to make needs known. Respiration is even and unlabored. IV site noted, iv fluid is infusing as ordered. Kept clean and comfortable. Educated patient to use call light. Patient is on airborne precaution, observed. No complaint of pain or discomfort noted. Call light is at bedside. WIll continue plan of care.
[2019-09-02 20:00] VITALS: BP 112/64
[2019-09-02] MEDS: Levemir Flexpen SUBQ SCH (21:57)
--- NOTE | 2019-09-02 23:45 | Progress Note ---
DATE: 09/02/2019 SUBJECTIVE: The patient is stable at baseline. She is withdrawn. Low energy. Depressed. She has anhedonia, worthlessness, hopelessness. Able to answer the questions. Compliant with medication. MENTAL STATUS EXAMINATION: Alert and oriented times self, place, and situation. Mood is neutral. Affect is flat. Thought process, concrete. Thought content, no suicidal or homicidal ideation. ASSESSMENT: Stable. PLAN: 1. We will continue current medications. 2. Provide the patient with reality orientation and supportive therapy. Hilaria Meza M.D. DR: JULIETTE JOB#: [id number] CC:
[2019-09-03] VITALS: BP 104/65
[2019-09-03] MEDS: Vigamox Opth Soln 3ml RIGHT EYE SCH ×6 (01:00→21:00)
[2019-09-03] MEDS: NovoLOG Insulin Flexpen SUBQ SCH ×4 (06:11→21:40)
[2019-09-03] MEDS: ceFAZolin sod 2 GM in D5W 110 ML IVPB SCH ×3 (06:18→21:23)
--- NOTE | 2019-09-03 07:08 | NUR ---
HAND-OFF: Report given to Rn. Constantino.
--- NOTE | 2019-09-03 07:19 | NUR ---
NURSE NOTES: Received pt in bed, sleeping. RA. No s/s of distress/pain. IV on LFA 22g noted, running NS @ 75 ml/hr. Side rails x2. Bed in the lowest and locked. Call light within reach. Will continue to monitor
[2019-09-03 08:00] VITALS: BP 110/68
[2019-09-03] MEDS: Metoprolol Succinate XL 50mg tab ORAL SCH (08:09)
[2019-09-03] MEDS: dilTIAZem HCl CD 180mg cap ORAL SCH (08:09)
[2019-09-03] MEDS: Docusate 100mg cap ORAL SCH ×2 (08:47→21:00)
--- NOTE | 2019-09-03 09:07 | Cardiology Progress Note ---
Assessment/Plan Status: stable Assessment/Plan Assessment/Plan Assessment/Plan: 53-year-old AAF with PMH of renal transplant 5 years ago, DM type II, who presented to the ED for rash that began 6 days ago. Cardiology consulted for heart block MOBITZ II Continue to monitor on telemetry Patient having premature atrial contracts that are blocked, avoid vagal manuvers , no indication for pacemaker Patient having runs or SVT from PACs -Continue Toprol XL to reduce ectopy D/c with ziopatch Echocardiogram normal LV function Replete electrolytes Stress test as outpatient Caution with atropine in case of infra alejo heart block which will worsen conduction Aggressive glucose control as hyperglycemia can damage conduction system psych consulted for medication compliance Subjective Cardiovascular: Reports: no symptoms Respiratory: Reports: no symptoms Gastrointestinal/Abdominal: Reports: no symptoms Genitourinary: Reports: no symptoms Subjective No acute events, monitor with no runs overnight, still has PACs, no chest pain no SOB. C/o diffuse body pains Objective Last 24 Hour Vital Signs Date Time Temp Pulse Resp B/P (MAP) Pulse Ox O2 Delivery O2 Flow Rate FiO2 09/03/19 08:10 Room Air 09/03/19 08:09 68 110/68 09/03/19 08:09 68 110/68 09/03/19 08:00 98.4 68 18 110/68 (82) 98 09/03/19 00:00 98.6 58 18 104/65 (78) 100 09/02/19 21:00 Room Air 09/02/19 20:00 98.0 56 17 112/64 (80) 96 09/02/19 16:00 98.3 61 20 111/69 (83) 100 09/02/19 12:00 98.6 70 19 111/71 (84) 99 General Appearance: no apparent distress, alert EENT: PERRL/EOMI, normal ENT inspection, TMs normal, pharynx normal Neck: non-tender, normal alignment, supple, normal inspection, no JVD Rhythm: NSR Cardiovascular: normal peripheral pulses, normal rate, regular rhythm Respiratory/Chest: chest wall non-tender, lungs clear, normal breath sounds, no respiratory distress, no accessory muscle use Abdomen: normal bowel sounds, non tender, soft, no organomegaly, no mass Extremities: normal range of motion, non-tender, normal inspection, no calf tenderness, no swelling Neurologic: skiver sock linings II-XII grossly normal, no motor/sensory deficits Intake and Output 09/02/19 09/03/19 19:00 07:00 Intake Total 1310 ml 1985 ml Balance 1310 ml 1985 ml Intake Oral 600 ml 1200 ml IV Total 710 ml 785 ml # Voids 2 # Bowel Movements 1 Sumit Tristan MD Sep 03, 2019 09:07
[2019-09-03 12:00] VITALS: BP 119/78
--- NOTE | 2019-09-03 13:07 | NUR ---
CASE MANAGEMENT:REVIEW SI;VARICELLA. SEPSIS. MOBITZ TYPE II. BACTERIAL CONJUNCTIVITIS. 98.6 58 18 104/64 98% ON RA NA 146 CL 110 ALB 2.4 IS;ACYCLOVIR PO 5X/DAY CEFAZOLIN IV Q8 HRS MOXIFLOXACIN 2 GTT RT EYE A4 HRS BENADRYL IV Q6 HRS PRN TOPROL PO QD PREDNISONE PO WD MED SURG STATUS PLAN OF CARE; 2D ECHO PENDING DCP;FROM HOME
--- NOTE | 2019-09-03 13:39 | General Progress Note ---
Assessment/Plan Status: stable Assessment/Plan: 53-year-old AAF with PMH of renal transplant 5 years ago, DM type II, who presented to the ED for rash Pt believes this developed as a side effect after recieving the MMR vaccine in late June. On admission patient was found to be in Mobitz type II. Rashes were concerning for disseminated varicella for which patient was admitted for further treatment and evaluation. #Disseminated varicella Continue inpatient medical care Cont. oral acyclovir IV Benadryl for pruritis Air borne precautions ID following Cleared by Ophthalmology #Sepsis, MSSA bacteremia -continue vancomycin and monitor levels -follow up final blood cultures -TTE pending -Discussed with ID #Mobitz Type II Seen on EKG on admission pt denies any CP, SOB, palpitations U tox positive for cocaine and cannabis Cardio, Dr. Tristan following No indication for PPM at this time #Acute bacterial conjunctivitis, right eye cont moxifloxacin eye drops #h/o renal transplant pt pending transfer to [facility] for further evaluation and work up, sign out given to accepting MD off mycophenolate per Renal cont Prograf 1 mg bid, levels pending Nephrology recs appreciated #Hypokalemia -replace with oral KCl prn -monitor BMP #H/o medical non-compliance #Irrational behavior Urine tox positive for THC and cocaine psych following #Diabetes type 2 #Non-compliance #Hyperglycemia obtain A1C ISS, FSBS, insuin 5 U qHS #Hypomagnesemia Replace Continue to monitor, replace as needed DVT PPx: lovenox Time spent on encounter: 35 mins, >50% on pt counseling, coordination of care. Subjective Date patient seen: Sep 03, 2019 Time patient seen: 09:45 ROS Limited/Unobtainable: No Constitutional: Denies: chills, fever Cardiovascular: Denies: chest pain Respiratory: Denies: cough Gastrointestinal/Abdominal: Denies: abdominal pain Allergies: Coded Allergies: No Known Allergies (Unverified , 10/21/17) Subjective Follow up for disseminated VZV infection and MSSA bacteremia Patient had been refusing echocardiogram for unclear reasons No new complaints. Importance of ruling out endocarditis explained to patient. Objective Last 24 Hour Vital Signs Date Time Temp Pulse Resp B/P (MAP) Pulse Ox O2 Delivery O2 Flow Rate FiO2 09/03/19 12:00 98.2 61 16 119/78 (92) 98 09/03/19 08:10 Room Air 09/03/19 08:09 68 110/68 09/03/19 08:09 68 110/68 09/03/19 08:00 98.4 68 18 110/68 (82) 98 09/03/19 00:00 98.6 58 18 104/65 (78) 100 09/02/19 21:00 Room Air 09/02/19 20:00 98.0 56 17 112/64 (80) 96 09/02/19 16:00 98.3 61 20 111/69 (83) 100 Intake and Output 09/02/19 09/03/19 19:00 07:00 Intake Total 1310 ml 1985 ml Balance 1310 ml 1985 ml Intake Oral 600 ml 1200 ml IV Total 710 ml 785 ml # Voids 2 # Bowel Movements 1 Height (Feet): 5 Height (Inches): 1.00 Weight (Pounds): 93 General Appearance: no apparent distress, alert Neck: normal alignment, supple Cardiovascular: normal rate, regular rhythm Respiratory/Chest: lungs clear, normal breath sounds Abdomen: non tender, soft Ashvin Pacheco MD Sep 03, 2019 13:39
--- NOTE | 2019-09-03 14:14 | NUR ---
*-* INSURANCE *-* ALL CLINICALS AND REVIEWS HAVE BEEN FAXED TO: [facility] P: [phone] F: [phone] [facility] AUTH# [id number] FAX ALL CLINICALS TO [phone]
[2019-09-03 16:00] VITALS: BP 122/70
--- NOTE | 2019-09-03 17:20 | Infectious Diseases Prog Note ---
Assessment/Plan Assessment/Plan ASSESSMENT AND PLAN: 1. disseminated varicella virus infection, airborne isolation staph aureus/mssa/streptococcus bacteremia, sepsis, ? endocarditis, right arm cellulitis with infiltrated iv that was changed - oral acyclovir x 5 days - cefazolin - day # 7 - await JOVON - will determine length of abx treatment - lesions crusting - monitor low grade temperatures - check surveillance blood cultures - monitor right arm cellulitis/swelling - improved 2. Right eye conjunctivitis - less drainage, improved, cleared by ophthalmology , moxifloxacin eye drops 3. Renal transplant patient. 4. Diabetes. 5. Questionable hypertension. 6. Blood sugar treatment per primary care team for diabetes type 2. 7. Urine drug screen positive for cocaine and THC. 8. The patient is renal transplant patient and is immunocompromised. 9. Mobitz type 2 heart block. Treatment per Cardiology. 10. Continue treatment primary consultants. 11. No known drug allergies. 12. Social history looks like positive for THC and cocaine, but no history of smoking and alcohol per discussion with the patient. 13. Family history is noncontributory. 14. MAR is noted. 15. Case was discussed with RN. Subjective Constitutional: Reports: fatigue; Denies: fever HEENT: Denies: congestion Respiratory: Denies: shortness of breath Cardiovascular: Denies: chest pain Gastrointestinal/Abdominal: Denies: nausea, vomiting, diarrhea Genitourinary: Reports: other - no forte Neurologic: Denies: headache Psychiatric: Denies: depression Skin: Denies: rash Hematologic: Denies: bleeding Musculoskeletal: Denies: pain Allergies: Coded Allergies: No Known Allergies (Unverified , 10/21/17) Objective Vital Signs Last 24 Hour Vital Signs Date Time Temp Pulse Resp B/P (MAP) Pulse Ox O2 Delivery O2 Flow Rate FiO2 09/03/19 16:00 98.6 17 17 122/70 (87) 98 09/03/19 12:00 98.2 61 16 119/78 (92) 98 09/03/19 08:10 Room Air 09/03/19 08:09 68 110/68 09/03/19 08:09 68 110/68 09/03/19 08:00 98.4 68 18 110/68 (82) 98 09/03/19 00:00 98.6 58 18 104/65 (78) 100 09/02/19 21:00 Room Air 09/02/19 20:00 98.0 56 17 112/64 (80) 96 Height (Feet): 5 Height (Inches): 1.00 Weight (Pounds): 93 General Appearance: no acute distress HEENT: normocephalic, atraumatic, anicteric, mucous membranes moist Respiratory/Chest: lungs clear, normal breath sounds, no respiratory distress, no accessory muscle use Cardiovascular: normal rate, regular rhythm Abdomen: normal bowel sounds, soft, non tender, no organomegaly Genitourinary: other - no forte Extremities: no cyanosis Skin: rash - lesions crusting 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 COMPARISON: No relevant prior studies available. FINDINGS: Lungs: No consolidation. Pleural space: Unremarkable. No pneumothorax. Heart: Unremarkable. No cardiomegaly. Mediastinum: Unremarkable. Bones/joints: No acute fracture. IMPRESSION: No acute cardiopulmonary disease. 08/29/19 - chest x-ray - nad, report noted Microbiology Date/Time Source Procedure Growth Status 08/30/19 08:25 Blood Blood Culture - Final Staphylococcus Species Complete 08/28/19 19:30 Nasal Nares - Final Complete 08/28/19 19:30 Nasal Nares - Final Complete Labs Test 08/31/19 23:19 09/02/19 05:50 Vancomycin Level Trough 16.9 ug/mL (5.0-12.0) White Blood Count 7.0 K/UL (4.8-10.8) Red Blood Count 4.06 M/UL (4.20-5.40) Hemoglobin 12.3 G/DL (12.0-16.0) Hematocrit 35.6 % (37.0-47.0) Mean Corpuscular Volume 88 FL (80-99) Mean Corpuscular Hemoglobin 30.3 PG (27.0-31.0) Mean Corpuscular Hemoglobin Concent 34.6 G/DL (32.0-36.0) Red Cell Distribution Width 10.9 % (11.6-14.8) Platelet Count 130 K/UL (150-450) Mean Platelet Volume 14.1 FL (6.5-10.1) Neutrophils (%) (Auto) 63.1 % (45.0-75.0) Lymphocytes (%) (Auto) 16.7 % (20.0-45.0) Monocytes (%) (Auto) 12.9 % (1.0-10.0) Eosinophils (%) (Auto) 0.9 % (0.0-3.0) Basophils (%) (Auto) 6.5 % (0.0-2.0) Sodium Level 146 MMOL/L (136-145) Potassium Level 3.9 MMOL/L (3.5-5.1) Chloride Level 110 MMOL/L (98-107) Carbon Dioxide Level 22 MMOL/L (21-32) Anion Gap 14 mmol/L (5-15) Blood Urea Nitrogen 6 mg/dL (7-18) Creatinine 0.6 MG/DL (0.55-1.30) Estimat Glomerular Filtration Rate > 60 mL/min (>60) Glucose Level 79 MG/DL (74-106) Calcium Level 8.9 MG/DL (8.5-10.1) Total Bilirubin 0.3 MG/DL (0.2-1.0) Aspartate Amino Transf (AST/SGOT) 37 U/L (15-37) Alanine Aminotransferase (ALT/SGPT) 19 U/L (12-78) Alkaline Phosphatase 135 U/L (46-116) Total Protein 6.2 G/DL (6.4-8.2) Albumin 2.4 G/DL (3.4-5.0) Globulin 3.8 g/dL Albumin/Globulin Ratio 0.6 (1.0-2.7) Current Medications Medications (Trade) Dose Ordered Sig/Karine Route PRN Reason Start Time Stop Time Status Last Admin Dose Admin Acetaminophen (Tylenol) 650 mg Q4H PRN ORAL fever 08/31/19 09:00 09/23/19 08:59 09/01/19 09:27 Acetaminophen (Tylenol) 650 mg Q4H PRN ORAL Mild Pain (Pain Scale 1-3) 08/31/19 09:00 09/23/19 08:59 Acyclovir (Zovirax) 800 mg FIVE TIMES A DAY ORAL 09/02/19 07:00 10/02/19 06:59 09/03/19 16:40 Cefazolin Sodium 2 gm/Dextrose 110 ml @ 220 mls/hr Q8HR IVPB 09/01/19 22:00 09/08/19 21:59 09/03/19 13:55 Dextrose (Dextrose 50%) 25 ml Q30M PRN IV Hypoglycemia 08/31/19 08:45 09/24/19 00:44 Dextrose (Dextrose 50%) 50 ml Q30M PRN IV Hypoglycemia 08/31/19 08:45 09/24/19 00:44 Diltiazem HCl (Cardizem CD) 180 mg DAILY ORAL 08/31/19 09:00 09/24/19 12:59 09/02/19 08:46 Diphenhydramine HCl (Benadryl) 25 mg Q6H PRN IVP Itching 08/31/19 09:00 09/25/19 08:59 09/02/19 21:45 Docusate Sodium (Colace) 100 mg EVERY 12 HOURS ORAL 08/31/19 09:00 09/24/19 08:59 09/03/19 08:47 Insulin Aspart (NovoLOG) BEFORE MEALS AND HS SUBQ 08/31/19 11:30 09/24/19 16:29 09/03/19 16:49 Insulin Detemir (Levemir) 5 units QHS SUBQ 08/31/19 21:00 09/23/19 22:44 09/02/19 21:57 Metoprolol Succinate (Toprol XL) 50 mg DAILY ORAL 08/31/19 09:00 09/29/19 08:59 09/02/19 08:46 Mirtazapine (Remeron) 7.5 mg BEDTIME PRN ORAL insomnia 08/31/19 21:00 09/26/19 20:59 Moxifloxacin HCl (Vigamox) 2 drop Q4HR RIGHT EYE 09/01/19 17:00 09/04/19 07:59 09/03/19 16:53 Ondansetron HCl (Zofran) 4 mg Q6H PRN IVP Nausea & Vomiting 08/31/19 09:00 09/23/19 08:59 Pantoprazole (Protonix) 40 mg DAILY ORAL 08/31/19 09:00 09/24/19 08:59 09/03/19 08:47 Prednisone (predniSONE) 5 mg DAILY ORAL 08/31/19 09:00 09/24/19 08:59 09/03/19 08:47 Sodium Chloride 1,000 ml @ 75 mls/hr [id number] IV 08/31/19 08:45 09/24/19 01:29 09/03/19 15:14 Tacrolimus (Prograf) 1 mg EVERY 12 HOURS ORAL 08/31/19 09:00 09/26/19 12:19 09/03/19 08:47 Juana Roach MD Sep 03, 2019 17:20
[2019-09-03 18:43] LABS: BASOPHILS % (AUTO) 2.3 % (0.0-2.0); EOSINOPHILS % (AUTO) 0.2 % (0.0-3.0); HEMATOCRIT 35.8 % (37.0-47.0); HEMOGLOBIN 11.4 G/DL (12.0-16.0); LYMPHOCYTES % (AUTO) 15.3 % (20.0-45.0); MEAN CORPUSCULAR VOLUME 91 FL (80-99); MONOCYTES % (AUTO) 7.5 % (1.0-10.0); NEUTROPHILS % (AUTO) 74.8 % (45.0-75.0); PLATELET COUNT 137 K/UL (150-450); RED BLOOD COUNT 3.91 M/UL (4.20-5.40); RED CELL DISTRIBUTION WIDTH 12.4 % (11.6-14.8); WHITE BLOOD COUNT 4.9 K/UL (4.8-10.8)
[2019-09-03 18:57] LABS: ALANINE AMINOTRANSFERASE 16 U/L (12-78); ALBUMIN 2.4 G/DL (3.4-5.0); ALBUMIN/GLOBULIN RATIO 0.7 (1.0-2.7); ALKALINE PHOSPHATASE 144 U/L (46-116); ANION GAP 9 mmol/L (5-15); ASPARTATE AMINO TRANSFERASE 25 U/L (15-37); BILIRUBIN,TOTAL 0.1 MG/DL (0.2-1.0); BLOOD UREA NITROGEN 7 mg/dL (7-18); CALCIUM 8.7 MG/DL (8.5-10.1); CARBON DIOXIDE 28 MMOL/L (21-32); CHLORIDE 109 MMOL/L (98-107); CREATININE 0.7 MG/DL (0.55-1.30); POTASSIUM 3.8 MMOL/L (3.5-5.1); SODIUM 146 MMOL/L (136-145)
[2019-09-03 20:00] VITALS: BP 130/76
[2019-09-03] MEDS: DiphenhydrAMINE 50mg/ml Inj IVP PRN (21:38)
[2019-09-03] MEDS: Levemir Flexpen SUBQ SCH (21:39)
--- NOTE | 2019-09-03 22:12 | NUR ---
NURSE NOTES: Patient in bed, awake, alert x 4. Ambulatory, steady gate. Skin is warm and dry. IV site noted, iv fluid is infusing. Bed in low and locked position. Provided safe environment. No complaint of pain or discomfort noted at this time. Respiration is even and unlabored. Call light is at bedside. Will continue plan of care.
[2019-09-04] VITALS: BP_SYST 131; BP_DIAS 73; BP_DIAS 75
[2019-09-04] MEDS: Vigamox Opth Soln 3ml RIGHT EYE SCH ×2 (01:00→04:56)
[2019-09-04 04:00] VITALS: BP 131/75
[2019-09-04] MEDS: ceFAZolin sod 2 GM in D5W 110 ML IVPB SCH ×3 (06:01→22:36)
[2019-09-04] MEDS: NovoLOG Insulin Flexpen SUBQ SCH ×4 (06:11→20:48)
--- NOTE | 2019-09-04 07:04 | NUR ---
HAND-OFF: Report given to Celina Meeks.
[2019-09-04 08:00] VITALS: BP 126/75
[2019-09-04] MEDS: Metoprolol Succinate XL 50mg tab ORAL SCH (08:32)
[2019-09-04] MEDS: dilTIAZem HCl CD 180mg cap ORAL SCH (08:35)
[2019-09-04] MEDS: Docusate 100mg cap ORAL SCH ×2 (08:35→20:43)
--- NOTE | 2019-09-04 10:50 | NUR ---
RD ASSESSMENT & RECOMMENDATIONS SEE CARE ACTIVITY FOR COMPLETE ASSESSMENT DAILY ESTIMATED NEEDS: Needs based on DM, underweight 44kg 30-35 kcals/kg 0801-9509 total kcals 1-1.5 g protein/kg 44-66 g total protein 25-30 mL/kg 0643-3895 total fluid mLs NUTRITION DIAGNOSIS: Altered nutrition related lab values r/t IDDM as evidenced by A1C 9.1, POC glu (168-373), adm w/ (+) tox for cocaine. CURRENT DIET:REGULAR -> CCHO LOW PO DIET RECOMMENDATIONS: CCHO LOW / LOW NA DIET ADDITIONAL RECOMMENDATIONS: 1) Obtain a calibrated bed scale wt 2) Monitor po intake -> now improved -> Add high pro / 1 carb snacks, pt refused Glucerna 3) Consider increasing Levemir - BGs variable and uncontrolled, pt on Prednisone.
[2019-09-04 12:00] VITALS: BP 131/79
--- NOTE | 2019-09-04 12:35 | General Progress Note ---
Assessment/Plan Status: stable Assessment/Plan: 53-year-old AAF with PMH of renal transplant 5 years ago, DM type II, who presented to the ED for rash Pt believes this developed as a side effect after recieving the MMR vaccine in late June. On admission patient was found to be in Mobitz type II. Rashes were concerning for disseminated varicella for which patient was admitted for further treatment and evaluation. #Disseminated varicella Continue inpatient medical care Cont. oral acyclovir IV Benadryl for pruritis Air borne precautions ID following Cleared by Ophthalmology #Sepsis, MSSA bacteremia -continue cefazolin, day 8 -follow up final blood cultures -TTE to be done today, will need JOVON if negative to determine duration of antibiotic #Mobitz Type II Seen on EKG on admission pt denies any CP, SOB, palpitations U tox positive for cocaine and cannabis Cardio, Dr. Tristan following No indication for PPM at this time #Acute bacterial conjunctivitis, right eye cont moxifloxacin eye drops #h/o renal transplant pt pending transfer to [facility] for further evaluation and work up, sign out given to accepting MD off mycophenolate per Renal cont Prograf 1 mg bid, levels pending Nephrology recs appreciated #Hypokalemia -replace with oral KCl prn -monitor BMP #H/o medical non-compliance #Irrational behavior Urine tox positive for THC and cocaine psych following #Diabetes type 2 #Non-compliance #Hyperglycemia obtain A1C ISS, FSBS, insuin 5 U qHS #Hypomagnesemia Replace Continue to monitor, replace as needed DVT PPx: lovenox Time spent on encounter: 35 mins, >50% on pt counseling, coordination of care. Subjective Date patient seen: Sep 04, 2019 Time patient seen: 10:36 ROS Limited/Unobtainable: No Constitutional: Denies: chills, fever Cardiovascular: Denies: chest pain, edema Respiratory: Denies: cough, orthopnea Gastrointestinal/Abdominal: Denies: abdomen distended, abdominal pain Genitourinary: Denies: burning Allergies: Coded Allergies: No Known Allergies (Unverified , 10/21/17) Subjective Follow up for disseminated VZV infection and MSSA bacteremia TTE pending Objective Last 24 Hour Vital Signs Date Time Temp Pulse Resp B/P (MAP) Pulse Ox O2 Delivery O2 Flow Rate FiO2 09/04/19 12:00 98.9 72 18 131/79 (96) 96 09/04/19 08:35 69 126/75 09/04/19 08:32 69 126/75 09/04/19 08:16 Room Air 09/04/19 08:00 97.5 69 16 126/75 (92) 96 09/04/19 04:00 97.7 64 18 131/75 (93) 97 09/04/19 00:00 98.1 61 18 131/73 (92) 96 09/03/19 21:00 Room Air 09/03/19 20:00 98.5 66 18 130/76 (94) 97 09/03/19 16:00 98.6 17 17 122/70 (87) 98 Intake and Output 09/03/19 09/04/19 19:00 07:00 Intake Total 75 ml 785 ml Balance 75 ml 785 ml IV Total 75 ml 785 ml # Voids 2 Laboratory Tests 09/03/19 17:30: White Blood Count 4.9, Red Blood Count 3.91L, Hemoglobin 11.4L, Hematocrit 35.8L , Mean Corpuscular Volume 91, Mean Corpuscular Hemoglobin 29.2, Mean Corpuscular Hemoglobin Concent 31.9L, Red Cell Distribution Width 12.4, Platelet Count 137L, Mean Platelet Volume 16.7H, Neutrophils (%) (Auto) 74.8, Lymphocytes (%) (Auto) 15.3L, Monocytes (%) (Auto) 7.5, Eosinophils (%) (Auto) 0.2, Basophils (%) (Auto) 2.3H, Sodium Level 146H, Potassium Level 3.8, Chloride Level 109H, Carbon Dioxide Level 28, Anion Gap 9, Blood Urea Nitrogen 7 , Creatinine 0.7, Estimat Glomerular Filtration Rate > 60, Glucose Level 180#H, Calcium Level 8.7, Total Bilirubin 0.1L, Aspartate Amino Transf (AST/SGOT) 25, Alanine Aminotransferase (ALT/SGPT) 16, Alkaline Phosphatase 144H, Total Protein 5.8L, Albumin 2.4L, Globulin 3.4, Albumin/Globulin Ratio 0.7L Height (Feet): 5 Height (Inches): 1.00 Weight (Pounds): 100 General Appearance: no apparent distress, alert Neck: normal alignment, supple Cardiovascular: normal rate, regular rhythm Respiratory/Chest: lungs clear, normal breath sounds Abdomen: non tender, soft Ashvin Pacheco MD Sep 04, 2019 12:35
--- NOTE | 2019-09-04 15:34 | NUR ---
CASE MANAGEMENT:REVIEW SI;VARICELLA. SEPSIS. MOBITZ TYPE II. BACTERIAL CONJUNCTIVITIS. 98.9 72 18 131/79 96% ON RA NO LABS AVAILABLE IS;ACYCLOVIR PO 5X/DAY CEFAZOLIN IV Q8 HRS MOXIFLOXACIN 2 GTT RT EYE A4 HRS BENADRYL IV Q6 HRS PRN TOPROL PO QD PREDNISONE PO QD MED SURG STATUS DCP;FROM HOME 2D ECHO COMPLETE. RESULTS PENDING
[2019-09-04 16:00] VITALS: BP 123/75
--- NOTE | 2019-09-04 19:18 | NUR ---
HAND-OFF: Report given to AL Lockhart.
--- NOTE | 2019-09-04 19:25 | NUR ---
NURSE NOTES: Pt. received from Fransisco MELENDEZ. Pt. AAOx4, on room air, breathing even and unlabored, no indications of pain at this time. IV noted left forearm 22g, intact, running NS at 75cc/hr. Bed is low and locked, side rails x2 up, and call light is in reach. Will continue to monitor.
[2019-09-04 20:00] VITALS: BP 117/70
[2019-09-04] MEDS: Levemir Flexpen SUBQ SCH (20:49)
[2019-09-04] MEDS: DiphenhydrAMINE 50mg/ml Inj IVP PRN (22:36)
--- NOTE | 2019-09-04 23:32 | Psych Consult Progress Note ---
Psychiatry Progress Note Psychiatry Progress Note Medications Current Medications Medications (Trade) Dose Ordered Sig/Karine Route PRN Reason Start Time Stop Time Status Last Admin Dose Admin Acetaminophen (Tylenol) 650 mg Q4H PRN ORAL fever 08/31/19 09:00 09/23/19 08:59 09/01/19 09:27 Acetaminophen (Tylenol) 650 mg Q4H PRN ORAL Mild Pain (Pain Scale 1-3) 08/31/19 09:00 09/23/19 08:59 Acyclovir (Zovirax) 800 mg FIVE TIMES A DAY ORAL 09/02/19 07:00 10/02/19 06:59 09/04/19 17:23 Cefazolin Sodium 2 gm/Dextrose 110 ml @ 220 mls/hr Q8H IVPB 09/04/19 15:00 09/11/19 14:59 09/04/19 22:36 Dextrose (Dextrose 50%) 25 ml Q30M PRN IV Hypoglycemia 08/31/19 08:45 09/24/19 00:44 Dextrose (Dextrose 50%) 50 ml Q30M PRN IV Hypoglycemia 08/31/19 08:45 09/24/19 00:44 Diltiazem HCl (Cardizem CD) 180 mg DAILY ORAL 08/31/19 09:00 09/24/19 12:59 09/04/19 08:35 Diphenhydramine HCl (Benadryl) 25 mg Q6H PRN IVP Itching 08/31/19 09:00 09/25/19 08:59 09/04/19 22:36 Docusate Sodium (Colace) 100 mg EVERY 12 HOURS ORAL 08/31/19 09:00 09/24/19 08:59 09/04/19 08:35 Insulin Aspart (NovoLOG) BEFORE MEALS AND HS SUBQ 08/31/19 11:30 09/24/19 16:29 09/04/19 20:48 Insulin Detemir (Levemir) 5 units QHS SUBQ 08/31/19 21:00 09/23/19 22:44 09/04/19 20:49 Metoprolol Succinate (Toprol XL) 50 mg DAILY ORAL 08/31/19 09:00 09/29/19 08:59 09/02/19 08:46 Mirtazapine (Remeron) 7.5 mg BEDTIME PRN ORAL insomnia 08/31/19 21:00 09/26/19 20:59 Ondansetron HCl (Zofran) 4 mg Q6H PRN IVP Nausea & Vomiting 08/31/19 09:00 09/23/19 08:59 Pantoprazole (Protonix) 40 mg DAILY ORAL 08/31/19 09:00 09/24/19 08:59 09/04/19 08:35 Prednisone (predniSONE) 5 mg DAILY ORAL 08/31/19 09:00 09/24/19 08:59 09/04/19 08:35 Sodium Chloride 1,000 ml @ 75 mls/hr [id number] IV 08/31/19 08:45 09/24/19 01:29 09/04/19 22:36 Tacrolimus (Prograf) 1 mg EVERY 12 HOURS ORAL 08/31/19 09:00 09/26/19 12:19 09/04/19 20:42 Allergies: Coded Allergies: No Known Allergies (Unverified , 10/21/17) Objective Data Height (Feet): 5 Height (Inches): 1.00 Weight (Pounds): 100 Additional Comments: Depressed. She has anhedonia, worthlessness, hopelessness. Able to answer the questions. Compliant with medication. MENTAL STATUS EXAMINATION: Alert and oriented times self, place, and situation. Mood is neutral. Affect is flat. Thought process, concrete. Thought content, no suicidal or homicidal ideation. ASSESSMENT: Stable. PLAN: 1. We will continue current medications. 2. Provide the patient with reality orientation and supportive therapy. Assessment/Plan Status: stable Hilaria Meza MD Sep 04, 2019 23:32
[2019-09-05] VITALS: BP 134/72
[2019-09-05 04:00] VITALS: BP 135/72
[2019-09-05] MEDS: ceFAZolin sod 2 GM in D5W 110 ML IVPB SCH ×3 (06:15→22:57)
[2019-09-05] MEDS: NovoLOG Insulin Flexpen SUBQ SCH ×4 (06:15→20:32)
--- NOTE | 2019-09-05 06:20 | NUR ---
NURSE NOTES: Pt. NPO, blood glucose 151, pt. am insulin sliding scale held prior to procedure. Will continue to monitor.
--- NOTE | 2019-09-05 07:03 | NUR ---
HAND-OFF: Report given to AL Quinones.
--- NOTE | 2019-09-05 07:38 | NUR ---
NURSE NOTES: Received report from AL Lockhart. Patient is sleeping on left side, on room air, bed in lowest position, call light within reach, respirations at 15 breaths per minute, in no apparent distress.
[2019-09-05 08:00] VITALS: BP 132/85
[2019-09-05] MEDS: dilTIAZem HCl CD 180mg cap ORAL SCH (09:01)
[2019-09-05] MEDS: Docusate 100mg cap ORAL SCH ×2 (09:01→20:30)
[2019-09-05] MEDS: Metoprolol Succinate XL 50mg tab ORAL SCH (09:01)
[2019-09-05 12:00] VITALS: BP 126/73
--- NOTE | 2019-09-05 12:19 | General Progress Note ---
Assessment/Plan Status: stable Assessment/Plan: 53-year-old AAF with PMH of renal transplant 5 years ago, DM type II, who presented to the ED for rash Pt believes this developed as a side effect after recieving the MMR vaccine in late June. On admission patient was found to be in Mobitz type II. Rashes were concerning for disseminated varicella for which patient was admitted for further treatment and evaluation. #Disseminated varicella Continue inpatient medical care Cont. oral acyclovir IV Benadryl for pruritis Air borne precautions ID following Cleared by Ophthalmology #Sepsis, MSSA bacteremia -continue cefazolin, day 8 -follow up final blood cultures -TTE nondiagnostic, needs JOVON, likely to be done tomorrow. #Mobitz Type II Seen on EKG on admission pt denies any CP, SOB, palpitations U tox positive for cocaine and cannabis Cardio, Dr. Tristan following No indication for PPM at this time #Acute bacterial conjunctivitis, right eye cont moxifloxacin eye drops #h/o renal transplant pt pending transfer to [facility] for further evaluation and work up, sign out given to accepting MD off mycophenolate per Renal cont Prograf 1 mg bid, levels pending Nephrology recs appreciated #Hypokalemia -replace with oral KCl prn -monitor BMP #H/o medical non-compliance #Irrational behavior Urine tox positive for THC and cocaine psych following #Diabetes type 2 #Non-compliance #Hyperglycemia obtain A1C ISS, FSBS, insuin 5 U qHS #Hypomagnesemia Replace Continue to monitor, replace as needed DVT PPx: lovenox Time spent on encounter: 35 mins, >50% on pt counseling, coordination of care. Subjective Date patient seen: Sep 05, 2019 Time patient seen: 09:22 ROS Limited/Unobtainable: No Constitutional: Denies: chills, fever Cardiovascular: Denies: chest pain Respiratory: Denies: cough Allergies: Coded Allergies: No Known Allergies (Unverified , 10/21/17) Subjective Follow up for disseminated VZV infection and MSSA bacteremia TTE pending Objective Last 24 Hour Vital Signs Date Time Temp Pulse Resp B/P (MAP) Pulse Ox O2 Delivery O2 Flow Rate FiO2 09/05/19 09:01 68 132/85 09/05/19 09:01 68 132/85 09/05/19 09:00 Room Air 09/05/19 08:00 97.9 68 16 132/85 (101) 99 09/05/19 04:00 98.3 68 18 135/72 (93) 100 09/05/19 00:00 98.2 68 20 134/72 (92) 100 09/04/19 21:00 Room Air 09/04/19 20:00 98.4 76 18 117/70 (86) 100 09/04/19 16:00 97.5 67 19 123/75 (91) 97 Intake and Output 09/04/19 09/05/19 19:00 07:00 Intake Total 1800 ml 932 ml Balance 1800 ml 932 ml IV Total 932 ml Other 1800 ml # Voids 3 Height (Feet): 5 Height (Inches): 1.00 Weight (Pounds): 100 General Appearance: no apparent distress, alert Cardiovascular: normal rate, regular rhythm Respiratory/Chest: lungs clear, normal breath sounds Abdomen: non tender, soft Ashvin Pacheco MD Sep 05, 2019 12:19
--- NOTE | 2019-09-05 12:54 | NUR ---
*-* INSURANCE *-* ALL CLINICALS AND REVIEWS HAVE BEEN FAXED TO: [facility] P: [phone] F: [phone] [facility] AUTH# [id number] FAX ALL CLINICALS TO [phone]
--- NOTE | 2019-09-05 15:49 | NUR ---
CASE MANAGEMENT:REVIEW SI;VARICELLA. SEPSIS. MOBITZ TYPE II. BACTERIAL CONJUNCTIVITIS. 98.3 68 18 132/85 99% ON RA NO LABS AVAILABLE IS;ACYCLOVIR PO 5X/DAY CEFAZOLIN IV Q8 HRS MOXIFLOXACIN 2 GTT RT EYE A4 HRS BENADRYL IV Q6 HRS PRN TOPROL PO QD PREDNISONE PO QD MED SURG STATUS DCP; FROM HOME PLAN;JOVNO
[2019-09-05 16:00] VITALS: BP 121/71
--- NOTE | 2019-09-05 19:32 | NUR ---
HAND-OFF: Report given to Richy Avilez RN. Patient sitting up in bed, awake and alert, watching television, IV patent in left forearm 22 gauge running NS @ 75 cc/hour, bed in lowest position, call light within reach, no c/o pain, no SOB, in no apparent distress.
--- NOTE | 2019-09-05 19:47 | NUR ---
NURSE NOTES: Pt. received from AL Quinones. Pt. AAOx4, on room air, breathing is even and unlabored, no complaints of pain. IV left forearm 22g intact and patent, NS @ 75cc/hr. Bed is low and locked, side rails x2 up, and call light is in reach. Will continue to monitor.
[2019-09-05 20:00] VITALS: BP 111/61
--- NOTE | 2019-09-05 20:26 | Infectious Diseases Prog Note ---
Assessment/Plan Assessment/Plan ASSESSMENT AND PLAN: 1. disseminated varicella virus infection, airborne isolation staph aureus/mssa/streptococcus bacteremia, sepsis, ? endocarditis, right arm cellulitis with infiltrated iv that was changed - oral acyclovir x 3 days - cefazolin - day # 9 - await JOVON - will determine length of abx treatment - TTE - no vegetations mentioned - lesions crusting - monitor low grade temperatures - check surveillance blood cultures - monitor right arm cellulitis/swelling - improved 2. Right eye conjunctivitis - less drainage, improved, cleared by ophthalmology , moxifloxacin eye drops 3. Renal transplant patient. 4. Diabetes. 5. Questionable hypertension. 6. Blood sugar treatment per primary care team for diabetes type 2. 7. Urine drug screen positive for cocaine and THC. 8. The patient is renal transplant patient and is immunocompromised. 9. Mobitz type 2 heart block. Treatment per Cardiology. 10. Continue treatment primary consultants. 11. No known drug allergies. 12. Social history looks like positive for THC and cocaine, but no history of smoking and alcohol per discussion with the patient. 13. Family history is noncontributory. 14. MAR is noted. 15. Case was discussed with RN. Subjective Constitutional: Denies: fever HEENT: Denies: congestion Respiratory: Denies: shortness of breath Cardiovascular: Denies: chest pain Gastrointestinal/Abdominal: Denies: nausea, vomiting, diarrhea Genitourinary: Denies: dysuria, hematuria, frequency, nocturia Neurologic: Denies: headache Psychiatric: Denies: depression Skin: Denies: rash Hematologic: Denies: bleeding Musculoskeletal: Denies: pain Allergies: Coded Allergies: No Known Allergies (Unverified , 10/21/17) Objective Vital Signs Last 24 Hour Vital Signs Date Time Temp Pulse Resp B/P (MAP) Pulse Ox O2 Delivery O2 Flow Rate FiO2 09/05/19 16:00 97.9 67 18 121/71 (88) 97 09/05/19 12:00 98.1 67 18 126/73 (90) 99 09/05/19 09:01 68 132/85 09/05/19 09:01 68 132/85 09/05/19 09:00 Room Air 09/05/19 08:00 97.9 68 16 132/85 (101) 99 09/05/19 04:00 98.3 68 18 135/72 (93) 100 09/05/19 00:00 98.2 68 20 134/72 (92) 100 09/04/19 21:00 Room Air Height (Feet): 5 Height (Inches): 1.00 Weight (Pounds): 100 General Appearance: no acute distress HEENT: normocephalic, atraumatic, anicteric, mucous membranes moist Respiratory/Chest: lungs clear, normal breath sounds, no respiratory distress, no accessory muscle use Cardiovascular: normal rate, regular rhythm, no gallop/murmur, no JVD Abdomen: normal bowel sounds, soft, non tender, no organomegaly, non distended Genitourinary: other - no forte Extremities: no cyanosis Skin: no rash Neurologic/Psychiatric: chicken dresser II-XII grossly normal, alert, oriented x 3, responsive Lymphatic: no neck adenopathy Musculoskeletal: no effusion Objective Chest x-ray - Procedure: XRAY Chest 1v EXAM: XR Chest, 1 View CLINICAL HISTORY: CP TECHNIQUE: Frontal view of the chest. COMPARISON: No relevant prior studies available. FINDINGS: Lungs: No consolidation. Pleural space: Unremarkable. No pneumothorax. Heart: Unremarkable. No cardiomegaly. Mediastinum: Unremarkable. Bones/joints: No acute fracture. IMPRESSION: No acute cardiopulmonary disease. 08/29/19 - chest x-ray - nad, report noted Microbiology Date/Time Source Procedure Growth Status 09/02/19 06:00 Blood Blood Culture - Preliminary NO GROWTH AFTER 48 HOURS Resulted 08/28/19 19:30 Nasal Nares - Final Complete 08/28/19 19:30 Nasal Nares - Final Complete Labs Test 09/03/19 17:30 White Blood Count 4.9 K/UL (4.8-10.8) Red Blood Count 3.91 M/UL (4.20-5.40) Hemoglobin 11.4 G/DL (12.0-16.0) Hematocrit 35.8 % (37.0-47.0) Mean Corpuscular Volume 91 FL (80-99) Mean Corpuscular Hemoglobin 29.2 PG (27.0-31.0) Mean Corpuscular Hemoglobin Concent 31.9 G/DL (32.0-36.0) Red Cell Distribution Width 12.4 % (11.6-14.8) Platelet Count 137 K/UL (150-450) Mean Platelet Volume 16.7 FL (6.5-10.1) Neutrophils (%) (Auto) 74.8 % (45.0-75.0) Lymphocytes (%) (Auto) 15.3 % (20.0-45.0) Monocytes (%) (Auto) 7.5 % (1.0-10.0) Eosinophils (%) (Auto) 0.2 % (0.0-3.0) Basophils (%) (Auto) 2.3 % (0.0-2.0) Sodium Level 146 MMOL/L (136-145) Potassium Level 3.8 MMOL/L (3.5-5.1) Chloride Level 109 MMOL/L (98-107) Carbon Dioxide Level 28 MMOL/L (21-32) Anion Gap 9 mmol/L (5-15) Blood Urea Nitrogen 7 mg/dL (7-18) Creatinine 0.7 MG/DL (0.55-1.30) Estimat Glomerular Filtration Rate > 60 mL/min (>60) Glucose Level 180 MG/DL (74-106) Calcium Level 8.7 MG/DL (8.5-10.1) Total Bilirubin 0.1 MG/DL (0.2-1.0) Aspartate Amino Transf (AST/SGOT) 25 U/L (15-37) Alanine Aminotransferase (ALT/SGPT) 16 U/L (12-78) Alkaline Phosphatase 144 U/L (46-116) Total Protein 5.8 G/DL (6.4-8.2) Albumin 2.4 G/DL (3.4-5.0) Globulin 3.4 g/dL Albumin/Globulin Ratio 0.7 (1.0-2.7) Current Medications Medications (Trade) Dose Ordered Sig/Karine Route PRN Reason Start Time Stop Time Status Last Admin Dose Admin Acetaminophen (Tylenol) 650 mg Q4H PRN ORAL fever 08/31/19 09:00 09/23/19 08:59 09/01/19 09:27 Acetaminophen (Tylenol) 650 mg Q4H PRN ORAL Mild Pain (Pain Scale 1-3) 08/31/19 09:00 09/23/19 08:59 Acyclovir (Zovirax) 800 mg FIVE TIMES A DAY ORAL 09/02/19 07:00 10/02/19 06:59 09/05/19 19:37 Cefazolin Sodium 2 gm/Dextrose 110 ml @ 220 mls/hr Q8H IVPB 09/04/19 15:00 09/11/19 14:59 09/05/19 14:56 Dextrose (Dextrose 50%) 25 ml Q30M PRN IV Hypoglycemia 08/31/19 08:45 09/24/19 00:44 Dextrose (Dextrose 50%) 50 ml Q30M PRN IV Hypoglycemia 08/31/19 08:45 09/24/19 00:44 Diltiazem HCl (Cardizem CD) 180 mg DAILY ORAL 08/31/19 09:00 09/24/19 12:59 09/05/19 09:01 Diphenhydramine HCl (Benadryl) 25 mg Q6H PRN IVP Itching 08/31/19 09:00 09/25/19 08:59 09/04/19 22:36 Docusate Sodium (Colace) 100 mg EVERY 12 HOURS ORAL 08/31/19 09:00 09/24/19 08:59 09/05/19 09:01 Insulin Aspart (NovoLOG) BEFORE MEALS AND HS SUBQ 08/31/19 11:30 09/24/19 16:29 09/05/19 16:57 Insulin Detemir (Levemir) 5 units QHS SUBQ 08/31/19 21:00 09/23/19 22:44 09/04/19 20:49 Metoprolol Succinate (Toprol XL) 50 mg DAILY ORAL 08/31/19 09:00 09/29/19 08:59 09/05/19 09:01 Mirtazapine (Remeron) 7.5 mg BEDTIME PRN ORAL insomnia 08/31/19 21:00 09/26/19 20:59 Ondansetron HCl (Zofran) 4 mg Q6H PRN IVP Nausea & Vomiting 08/31/19 09:00 09/23/19 08:59 Pantoprazole (Protonix) 40 mg DAILY ORAL 08/31/19 09:00 09/24/19 08:59 09/05/19 09:01 Prednisone (predniSONE) 5 mg DAILY ORAL 08/31/19 09:00 09/24/19 08:59 09/05/19 09:01 Sodium Chloride 1,000 ml @ 75 mls/hr [id number] IV 08/31/19 08:45 09/24/19 01:29 09/04/19 22:36 Tacrolimus (Prograf) 1 mg EVERY 12 HOURS ORAL 08/31/19 09:00 09/26/19 12:19 09/05/19 09:01 Juana Roach MD Sep 05, 2019 20:26
[2019-09-05] MEDS: Levemir Flexpen SUBQ SCH (20:34)
--- NOTE | 2019-09-05 21:15 | Progress Note ---
DATE: 09/05/2019 SUBJECTIVE: The patient is the same, manageable, able to answer the questions, episodes of anxiety, irritable mood. MENTAL STATUS EXAMINATION: Alert and oriented times self, place, situation. Mood is irritable. Affect is constricted. Congruent with mood. Thought process is concrete. Thought content, no suicidal, homicidal ideation. ASSESSMENT: Stable. PLAN: 1. We will continue current psychotropic medications. 2. Provide the patient with reality orientation and supportive therapy. Hilaria Meza M.D. DR: Magdy JOB#: [id number] CC:
[2019-09-05] MEDS: DiphenhydrAMINE 50mg/ml Inj IVP PRN (22:57)
[2019-09-06] VITALS: BP 120/76
[2019-09-06 04:00] VITALS: BP 130/76
[2019-09-06] MEDS: NovoLOG Insulin Flexpen SUBQ SCH ×4 (06:28→20:44)
[2019-09-06] MEDS: ceFAZolin sod 2 GM in D5W 110 ML IVPB SCH ×3 (06:33→23:48)
[2019-09-06 06:39] LABS: BASOPHILS % (AUTO) 3.3 % (0.0-2.0); EOSINOPHILS % (AUTO) 0.9 % (0.0-3.0); HEMATOCRIT 35.3 % (37.0-47.0); HEMOGLOBIN 11.9 G/DL (12.0-16.0); LYMPHOCYTES % (AUTO) 21.3 % (20.0-45.0); MEAN CORPUSCULAR VOLUME 89 FL (80-99); MONOCYTES % (AUTO) 8.1 % (1.0-10.0); NEUTROPHILS % (AUTO) 66.5 % (45.0-75.0); PLATELET COUNT 172 K/UL (150-450); RED BLOOD COUNT 3.96 M/UL (4.20-5.40); RED CELL DISTRIBUTION WIDTH 11.6 % (11.6-14.8); WHITE BLOOD COUNT 4.2 K/UL (4.8-10.8)
[2019-09-06 07:18] LABS: ALANINE AMINOTRANSFERASE 19 U/L (12-78); ALBUMIN 2.5 G/DL (3.4-5.0); ALBUMIN/GLOBULIN RATIO 0.6 (1.0-2.7); ALKALINE PHOSPHATASE 161 U/L (46-116); ANION GAP 7 mmol/L (5-15); ASPARTATE AMINO TRANSFERASE 39 U/L (15-37); BILIRUBIN,TOTAL 0.1 MG/DL (0.2-1.0); BLOOD UREA NITROGEN 6 mg/dL (7-18); CALCIUM 8.9 MG/DL (8.5-10.1); CARBON DIOXIDE 30 MMOL/L (21-32); CHLORIDE 108 MMOL/L (98-107); CREATININE 0.7 MG/DL (0.55-1.30); POTASSIUM 4.3 MMOL/L (3.5-5.1); SODIUM 145 MMOL/L (136-145)
--- NOTE | 2019-09-06 07:30 | NUR ---
HAND-OFF: Report given to AL Ulloa.
--- NOTE | 2019-09-06 07:50 | NUR ---
pt is alert and awake, sitting up in chair and eating breakfast. breathing is even and unlabored. noted LFA 22g IV site, no infiltration noted. no acute distress noted at this time, call light is within reach.
[2019-09-06 08:00] VITALS: BP 119/68
[2019-09-06] MEDS: Metoprolol Succinate XL 50mg tab ORAL SCH (08:21)
[2019-09-06] MEDS: dilTIAZem HCl CD 180mg cap ORAL SCH (08:21)
[2019-09-06] MEDS: Docusate 100mg cap ORAL SCH ×2 (08:21→20:42)
--- NOTE | 2019-09-06 09:11 | NUR ---
NURSE NOTES: PER TAILOR HELPER ELÍAS, DR HAQ STATED ITS [facility]OLID[facility] TODAY SO SCHEDULED FOR MONDAY 11AM. DR MILLER INFORMED
--- NOTE | 2019-09-06 11:25 | General Progress Note ---
Assessment/Plan Status: stable Assessment/Plan: 53-year-old AAF with PMH of renal transplant 5 years ago, DM type II, who presented to the ED for rash Pt believes this developed as a side effect after recieving the MMR vaccine in late June. On admission patient was found to be in Mobitz type II. Rashes were concerning for disseminated varicella for which patient was admitted for further treatment and evaluation. #Disseminated varicella Continue inpatient medical care Cont oral acyclovir IV Benadryl for pruritis Airborne precautions stopped ID following Cleared by Ophthalmology #Sepsis, MSSA bacteremia -continue cefazolin -follow up final blood cultures -TTE nondiagnostic, JOVON on 09/09, NPO for procedure #Mobitz Type II Seen on EKG on admission pt denies any CP, SOB, palpitations U tox positive for cocaine and cannabis Cardio, Dr. Tristan following No indication for PPM at this time #Acute bacterial conjunctivitis, right eye cont moxifloxacin eye drops #h/o renal transplant pt pending transfer to [facility] for further evaluation and work up, sign out given to accepting MD off mycophenolate per Renal cont Prograf 1 mg bid, levels pending Nephrology recs appreciated #Hypokalemia -replace with oral KCl prn -monitor BMP #H/o medical non-compliance #Irrational behavior Urine tox positive for THC and cocaine psych following #Diabetes type 2 #Non-compliance #Hyperglycemia obtain A1C ISS, FSBS, insuin 5 U qHS #Hypomagnesemia Replace Continue to monitor, replace as needed DVT PPx: lovenox Time spent on encounter: 35 mins, >50% on pt counseling, coordination of care. Subjective Date patient seen: Sep 06, 2019 Time patient seen: 10:23 ROS Limited/Unobtainable: No Constitutional: Denies: chills, fever Cardiovascular: Denies: chest pain Respiratory: Denies: cough Gastrointestinal/Abdominal: Denies: abdomen distended, abdominal pain Genitourinary: Denies: burning Allergies: Coded Allergies: No Known Allergies (Unverified , 10/21/17) Subjective Follow up for disseminated VZV infection and MSSA bacteremia No new complaints JOVON rescheduled for Saturday 09/09 Objective Last 24 Hour Vital Signs Date Time Temp Pulse Resp B/P (MAP) Pulse Ox O2 Delivery O2 Flow Rate FiO2 09/06/19 09:00 Room Air 09/06/19 08:21 63 119/68 09/06/19 08:21 63 119/68 09/06/19 08:00 98.1 63 18 119/68 (85) 98 09/06/19 04:00 97.9 57 20 130/76 (94) 100 09/06/19 00:00 98.1 62 18 120/76 (91) 99 09/05/19 21:00 Room Air 09/05/19 20:00 98.2 68 18 111/61 (78) 93 09/05/19 16:00 97.9 67 18 121/71 (88) 97 09/05/19 12:00 98.1 67 18 126/73 (90) 99 Intake and Output 09/05/19 09/06/19 19:00 07:00 Intake Total 2547 ml 597 ml Balance 2547 ml 597 ml IV Total 747 ml 597 ml Other 1800 ml # Voids 3 3 Laboratory Tests 09/06/19 05:30: White Blood Count 4.2L, Red Blood Count 3.96L, Hemoglobin 11.9L, Hematocrit 35.3L, Mean Corpuscular Volume 89, Mean Corpuscular Hemoglobin 30.1, Mean Corpuscular Hemoglobin Concent 33.8, Red Cell Distribution Width 11.6, Platelet Count 172, Mean Platelet Volume 12.3H, Neutrophils (%) (Auto) 66.5, Lymphocytes (%) (Auto) 21.3, Monocytes (%) (Auto) 8.1, Eosinophils (%) (Auto) 0.9, Basophils (%) (Auto) 3.3H, Sodium Level 145, Potassium Level 4.3, Chloride Level 108H, Carbon Dioxide Level 30, Anion Gap 7, Blood Urea Nitrogen 6L, Creatinine 0.7, Estimat Glomerular Filtration Rate > 60, Glucose Level 148H, Calcium Level 8.9, Total Bilirubin 0.1L, Aspartate Amino Transf (AST/SGOT) 39H, Alanine Aminotransferase (ALT/SGPT) 19, Alkaline Phosphatase 161H, Total Protein 6.6, Albumin 2.5L, Globulin 4.1, Albumin/Globulin Ratio 0.6L Height (Feet): 5 Height (Inches): 1.00 Weight (Pounds): 100 General Appearance: alert, lethargic Neck: supple Cardiovascular: normal rate, regular rhythm Respiratory/Chest: lungs clear, normal breath sounds Ashvin Pacheco MD Sep 06, 2019 11:25
[2019-09-06 12:00] VITALS: BP 114/69
--- NOTE | 2019-09-06 14:54 | NUR ---
CASE MANAGEMENT:REVIEW SI;DISSEMINATED VARICELLA. BACTEREMIA. MOBITZ TYPE II. 98.1 57 20 114/63 98% ON RA ALK PHOS 161 IS;CEFAZOLIN IV Q8 HRS ACYCLOVIR PO 5X DAY DILTIAZEM PO QD PREDNISONE PO QD IVF NS @ 75 ML/HR PROTONIX PO QD MED SURG STATUS DCP;FROM HOME PLAN OF CARE; JOVON
--- NOTE | 2019-09-06 15:20 | NUR ---
*-* INSURANCE *-* ALL CLINICALS AND REVIEWS HAVE BEEN FAXED TO: [employer] / DEPT AUTH# [id number] FAXED ALL CLINICALS TO [phone]
[2019-09-06 16:00] VITALS: BP 113/70
--- NOTE | 2019-09-06 19:00 | NUR ---
HAND-OFF: Report given to Richy.
--- NOTE | 2019-09-06 19:32 | NUR ---
NURSE NOTES: Pt. received from AL Ulloa. Pt. AAOx4, on room air, breathing is even and unlabored, no complaints of pain. IV access left forearm 22g asymptomatic, intact, and patent; NS 75cc/hr. Bed is low and locked, side rails x2 up, and call light is in reach. Will continue plan of care.
[2019-09-06 20:00] VITALS: BP 121/73
[2019-09-06] MEDS: Levemir Flexpen SUBQ SCH (20:44)
--- NOTE | 2019-09-06 22:00 | Progress Note ---
DATE: 09/06/2019 SUBJECTIVE: The patient is in bed, doing well. No behavior issues. She has anxiety. Depressive symptoms more improved. MENTAL STATUS EXAMINATION: The patient is alert and oriented times self, place. Mood is neutral. Affect is flat. Thought process is concrete. Thought content, no suicidal or homicidal ideation. ASSESSMENT: Stable. PLAN: 1. We will continue current medications. 2. Provide the patient with reality orientation and supportive therapy. Hilaria Meza M.D. DR: ISA JOB#: [id number] CC:
[2019-09-06] MEDS ORDERED: NS Irrig 1000ml ONE (22:42)
[2019-09-06] MEDS ORDERED: Tubing IV Secondary IV ONE (22:42)
[2019-09-07] VITALS: BP 119/80
[2019-09-07 04:00] VITALS: BP 120/90
[2019-09-07] MEDS: ceFAZolin sod 2 GM in D5W 110 ML IVPB SCH ×3 (06:02→22:09)
[2019-09-07] MEDS: NovoLOG Insulin Flexpen SUBQ SCH ×4 (06:03→20:57)
--- NOTE | 2019-09-07 07:40 | NUR ---
NURSE NOTES: Report received from Richy. Patient is awake and alert x 4. Patient currently sitting in chair eating breakfast. Patient has no complaints at this time. On room air. Does not appear to be in respirator distress, no complaints of pain. Educated patient to ring call light if needs help with anything. Verbalized understanding. Will continue to follow plan of care.
--- NOTE | 2019-09-07 07:42 | NUR ---
HAND-OFF: Report given to AL Thomas.
[2019-09-07 08:00] VITALS: BP 102/59
[2019-09-07] MEDS: dilTIAZem HCl CD 180mg cap ORAL SCH (08:13)
[2019-09-07] MEDS: Metoprolol Succinate XL 50mg tab ORAL SCH (08:15)
[2019-09-07] MEDS: Docusate 100mg cap ORAL SCH ×2 (08:16→20:54)
[2019-09-07 12:00] VITALS: BP 111/68
--- NOTE | 2019-09-07 15:09 | General Progress Note ---
Assessment/Plan Status: stable Assessment/Plan: 53-year-old AAF with PMH of renal transplant 5 years ago, DM type II, who presented to the ED for rash Pt believes this developed as a side effect after recieving the MMR vaccine in late June. On admission patient was found to be in Mobitz type II. Rashes were concerning for disseminated varicella for which patient was admitted for further treatment and evaluation. #Disseminated varicella Continue inpatient medical care Cont oral acyclovir IV Benadryl for pruritis Airborne precautions stopped ID following Cleared by Ophthalmology d/w ID #Sepsis, MSSA bacteremia -continue cefazolin -follow up final blood cultures -TTE nondiagnostic, JOVON on 09/09, NPO for procedure #Mobitz Type II Seen on EKG on admission pt denies any CP, SOB, palpitations U tox positive for cocaine and cannabis Cardio, Dr. Tristan following No indication for PPM at this time #Acute bacterial conjunctivitis, right eye cont moxifloxacin eye drops cont. to monitor #h/o renal transplant pt pending transfer to [facility] for further evaluation and work up, sign out given to accepting MD off mycophenolate per Renal cont Prograf 1 mg bid, levels pending Nephrology recs appreciated #Hypokalemia -replace with oral KCl prn -monitor BMP #H/o medical non-compliance #Irrational behavior Urine tox positive for THC and cocaine psych following #Diabetes type 2 #Non-compliance #Hyperglycemia obtain A1C ISS, FSBS, insuin 5 U qHS #Hypomagnesemia Replace Continue to monitor, replace as needed DVT PPx: lovenox Time spent on encounter: 35 mins, >50% on pt counseling, coordination of care. Additional 40 mins spent for chart review. Subjective Allergies: Coded Allergies: No Known Allergies (Unverified , 10/21/17) Subjective Follow up for disseminated VZV infection and MSSA bacteremia No acute events overnight. Pt with poor medical insight. JOVON rescheduled for Saturday 09/09 Objective Last 24 Hour Vital Signs Date Time Temp Pulse Resp B/P (MAP) Pulse Ox O2 Delivery O2 Flow Rate FiO2 09/07/19 12:00 98.1 70 18 111/68 (82) 100 09/07/19 09:00 Room Air 09/07/19 08:15 73 102/59 09/07/19 08:13 73 102/59 09/07/19 08:00 98.1 73 20 102/59 (73) 99 09/07/19 04:00 98.0 89 18 120/90 (100) 94 09/07/19 00:00 98.5 93 18 119/80 (93) 96 09/06/19 21:00 Room Air 09/06/19 20:00 98.0 70 18 121/73 (89) 100 09/06/19 16:00 98.2 70 20 113/70 (84) 100 Intake and Output 09/06/19 09/07/19 19:00 07:00 Intake Total 1365 ml 560 ml Balance 1365 ml 560 ml Intake Oral 840 ml IV Total 525 ml 560 ml # Voids 5 2 Height (Feet): 5 Height (Inches): 1.00 Weight (Pounds): 100 Objective General Appearance: alert, awake, NAD, sitting up in bed Neck: supple Cardiovascular: normal rate, regular rhythm Respiratory/Chest: lungs clear, normal breath sounds Abd: soft, NT/ND ext: no edema Skin: healing sores on face Zeina Erickson M.D. Sep 07, 2019 15:09
[2019-09-07] MEDS ORDERED: Tubing IV Secondary IV ONE (15:21)
[2019-09-07 16:00] VITALS: BP 134/80
--- NOTE | 2019-09-07 16:21 | Infectious Diseases Prog Note ---
Assessment/Plan Assessment/Plan ASSESSMENT AND PLAN: 1. disseminated varicella virus infection, airborne isolation staph aureus/mssa/streptococcus bacteremia, sepsis, ? endocarditis, right arm cellulitis with infiltrated iv that was changed - oral acyclovir x 1 day - cefazolin - day # 11 - await JOVON - will determine length of abx treatment - TTE - no vegetations mentioned - lesions crusting - monitor low grade temperatures - check surveillance blood cultures - monitor right arm cellulitis/swelling - improved 2. Right eye conjunctivitis - less drainage, improved, cleared by ophthalmology , moxifloxacin eye drops 3. Renal transplant patient. 4. Diabetes. 5. Questionable hypertension. 6. Blood sugar treatment per primary care team for diabetes type 2. 7. Urine drug screen positive for cocaine and THC. 8. The patient is renal transplant patient and is immunocompromised. 9. Mobitz type 2 heart block. Treatment per Cardiology. 10. Continue treatment primary consultants. 11. No known drug allergies. 12. Social history looks like positive for THC and cocaine, but no history of smoking and alcohol per discussion with the patient. 13. Family history is noncontributory. 14. MAR is noted. 15. Case was discussed with RN. Subjective Constitutional: Denies: fever HEENT: Denies: congestion Respiratory: Denies: shortness of breath Cardiovascular: Denies: chest pain Gastrointestinal/Abdominal: Denies: nausea, vomiting, diarrhea Genitourinary: Reports: other - no forte Neurologic: Denies: headache Psychiatric: Denies: depression Skin: Reports: other - rash better Hematologic: Denies: bleeding Musculoskeletal: Denies: pain Allergies: Coded Allergies: No Known Allergies (Unverified , 10/21/17) Objective Vital Signs Last 24 Hour Vital Signs Date Time Temp Pulse Resp B/P (MAP) Pulse Ox O2 Delivery O2 Flow Rate FiO2 09/07/19 16:00 98.2 90 20 134/80 (98) 95 09/07/19 12:00 98.1 70 18 111/68 (82) 100 09/07/19 09:00 Room Air 09/07/19 08:15 73 102/59 09/07/19 08:13 73 102/59 09/07/19 08:00 98.1 73 20 102/59 (73) 99 09/07/19 04:00 98.0 89 18 120/90 (100) 94 09/07/19 00:00 98.5 93 18 119/80 (93) 96 09/06/19 21:00 Room Air 09/06/19 20:00 98.0 70 18 121/73 (89) 100 Height (Feet): 5 Height (Inches): 1.00 Weight (Pounds): 100 General Appearance: no acute distress HEENT: normocephalic, atraumatic, anicteric, mucous membranes moist Respiratory/Chest: lungs clear, normal breath sounds, no respiratory distress, no accessory muscle use Cardiovascular: normal rate, regular rhythm, no gallop/murmur, no JVD Abdomen: normal bowel sounds, soft, non tender, no organomegaly, non distended Genitourinary: other - no forte Extremities: no cyanosis, other - right arm cellulitis resolved Skin: lesions - hzv lesions dry Neurologic/Psychiatric: paper handler II-XII grossly normal, alert, oriented x 3, responsive Lymphatic: no neck adenopathy Musculoskeletal: no effusion Objective Chest x-ray - Procedure: XRAY Chest 1v EXAM: XR Chest, 1 View CLINICAL HISTORY: CP TECHNIQUE: Frontal view of the chest. COMPARISON: No relevant prior studies available. FINDINGS: Lungs: No consolidation. Pleural space: Unremarkable. No pneumothorax. Heart: Unremarkable. No cardiomegaly. Mediastinum: Unremarkable. Bones/joints: No acute fracture. IMPRESSION: No acute cardiopulmonary disease. 08/29/19 - chest x-ray - nad, report noted Microbiology Date/Time Source Procedure Growth Status 09/02/19 06:00 Blood Blood Culture - Preliminary NO GROWTH AFTER 4 DAYS Resulted 08/28/19 19:30 Nasal Nares - Final Complete 08/28/19 19:30 Nasal Nares - Final Complete Labs Test 09/06/19 05:30 White Blood Count 4.2 K/UL (4.8-10.8) Red Blood Count 3.96 M/UL (4.20-5.40) Hemoglobin 11.9 G/DL (12.0-16.0) Hematocrit 35.3 % (37.0-47.0) Mean Corpuscular Volume 89 FL (80-99) Mean Corpuscular Hemoglobin 30.1 PG (27.0-31.0) Mean Corpuscular Hemoglobin Concent 33.8 G/DL (32.0-36.0) Red Cell Distribution Width 11.6 % (11.6-14.8) Platelet Count 172 K/UL (150-450) Mean Platelet Volume 12.3 FL (6.5-10.1) Neutrophils (%) (Auto) 66.5 % (45.0-75.0) Lymphocytes (%) (Auto) 21.3 % (20.0-45.0) Monocytes (%) (Auto) 8.1 % (1.0-10.0) Eosinophils (%) (Auto) 0.9 % (0.0-3.0) Basophils (%) (Auto) 3.3 % (0.0-2.0) Sodium Level 145 MMOL/L (136-145) Potassium Level 4.3 MMOL/L (3.5-5.1) Chloride Level 108 MMOL/L (98-107) Carbon Dioxide Level 30 MMOL/L (21-32) Anion Gap 7 mmol/L (5-15) Blood Urea Nitrogen 6 mg/dL (7-18) Creatinine 0.7 MG/DL (0.55-1.30) Estimat Glomerular Filtration Rate > 60 mL/min (>60) Glucose Level 148 MG/DL (74-106) Calcium Level 8.9 MG/DL (8.5-10.1) Total Bilirubin 0.1 MG/DL (0.2-1.0) Aspartate Amino Transf (AST/SGOT) 39 U/L (15-37) Alanine Aminotransferase (ALT/SGPT) 19 U/L (12-78) Alkaline Phosphatase 161 U/L (46-116) Total Protein 6.6 G/DL (6.4-8.2) Albumin 2.5 G/DL (3.4-5.0) Globulin 4.1 g/dL Albumin/Globulin Ratio 0.6 (1.0-2.7) Current Medications Medications (Trade) Dose Ordered Sig/Karine Route PRN Reason Start Time Stop Time Status Last Admin Dose Admin Acetaminophen (Tylenol) 650 mg Q4H PRN ORAL fever 08/31/19 09:00 4 08:59 09/01/19 09:27 Acetaminophen (Tylenol) 650 mg Q4H PRN ORAL Mild Pain (Pain Scale 1-3) 08/31/19 09:00 09/23/19 08:59 Acyclovir (Zovirax) 800 mg FIVE TIMES A DAY ORAL 09/02/19 07:00 09/08/19 06:59 09/07/19 14:24 Cefazolin Sodium 2 gm/Dextrose 110 ml @ 220 mls/hr Q8H IVPB 09/04/19 15:00 09/11/19 14:59 09/07/19 15:13 Dextrose (Dextrose 50%) 25 ml Q30M PRN IV Hypoglycemia 08/31/19 08:45 09/24/19 00:44 Dextrose (Dextrose 50%) 50 ml Q30M PRN IV Hypoglycemia 08/31/19 08:45 09/24/19 00:44 Diltiazem HCl (Cardizem CD) 180 mg DAILY ORAL 08/31/19 09:00 09/24/19 12:59 09/06/19 08:21 Diphenhydramine HCl (Benadryl) 25 mg Q6H PRN IVP Itching 08/31/19 09:00 09/25/19 08:59 09/05/19 22:57 Docusate Sodium (Colace) 100 mg EVERY 12 HOURS ORAL 08/31/19 09:00 09/24/19 08:59 09/07/19 08:16 Insulin Aspart (NovoLOG) BEFORE MEALS AND HS SUBQ 08/31/19 11:30 09/24/19 16:29 09/07/19 11:33 Insulin Detemir (Levemir) 5 units QHS SUBQ 08/31/19 21:00 09/23/19 22:44 09/06/19 20:44 Metoprolol Succinate (Toprol XL) 50 mg DAILY ORAL 08/31/19 09:00 09/29/19 08:59 09/06/19 08:21 Mirtazapine (Remeron) 7.5 mg BEDTIME PRN ORAL insomnia 08/31/19 21:00 09/26/19 20:59 Ondansetron HCl (Zofran) 4 mg Q6H PRN IVP Nausea & Vomiting 08/31/19 09:00 09/23/19 08:59 Pantoprazole (Protonix) 40 mg DAILY ORAL 08/31/19 09:00 09/24/19 08:59 09/07/19 08:16 Prednisone (predniSONE) 5 mg DAILY ORAL 08/31/19 09:00 09/24/19 08:59 09/07/19 08:16 Sodium Chloride 1,000 ml @ 75 mls/hr [id number] IV 08/31/19 08:45 09/24/19 01:29 09/07/19 14:25 Tacrolimus (Prograf) 1 mg EVERY 12 HOURS ORAL 08/31/19 09:00 09/26/19 12:19 09/07/19 08:15 Juana Roach MD Sep 07, 2019 16:21
--- NOTE | 2019-09-07 19:29 | NUR ---
HAND-OFF: Report given to Valeria MELENDEZ.
--- NOTE | 2019-09-07 19:45 | NUR ---
NURSE NOTES: Report received from AL Moise. Patient is awake and alert x 4. Patient currently sitting in chair eating snacks. On room air, no respiratory distress noted. Denies pain or discomfort at this time. Bed in low and locked position. Call light within reach. Will continue to follow plan of care.
--- NOTE | 2019-09-07 19:54 | Consultation ---
History of Present Illness General Date patient seen: Sep 07, 2019 Reason for Hospitalization: Skin Rash/Abscess Present Illness HPI This is a very pleasant 53-year-old female with multiple medical comorbidities including a prior kidney transplant that presented to [facility] for a skin rash found to have disseminated varicella currently admitted for care and management at which time she complained of a right groin pubic cystic mass that was causing her discomfort. Surgery was called to evaluate and assist with care. Patient seen, patient [place], chart reviewed. Patient states that she has had I&D in the past 3 times but it continues to recur. Causes discomfort. Currently no draining. Tender on palpation. Allergies: Coded Allergies: No Known Allergies (Unverified , 10/21/17) Medication History Scheduled Bacitracin (Bacitracin), 1 APPLIC TOPIC BID Diltiazem Hcl* (Cardizem*), 180 MG ORAL DAILY, (Reported) Mycophenolate Mofetil (Cellcept), 1,000 MG ORAL EVERY 12 HOURS, (Reported) Prednisone (Prednisone), 5 MG PO QD, (Reported) Scheduled PRN Acetaminophen (Tylenol), 650 MG ORAL Q6H PRN for Prn Pain/Headache/Temp > 101 Diphenhydramine Hcl* (Benadryl*), 25 MG ORAL Q6H PRN for Itching, (Reported) Patient History History Provided By: Patient, Medical Record, PMD Healthcare decision maker Resuscitation status Full Code Advanced Directive on File Past Medical/Surgical History Past Medical/Surgical History: (1) Diarrhea (2) Cocaine abuse (3) Dehydration (4) Chicken pox (5) Goiter (6) Hyperglycemia (7) Thrombocytopenia (8) Mobitz type II block (9) Varicella Review of Systems Review of Symptoms General ROS: no weight loss or fever Psychological ROS: no depression or mood changes, no memory loss Ophthalmic ROS: no visual changes or eye irritation ENT ROS: no nasal congestion, hearing loss, dizziness Allergy and Immunology ROS: no allergic symptoms or urticaria Hematological and Lymphatic ROS: no swollen glands, unusual bleeding or bruising Endocrine ROS: no polyuria, polydipsia, weight changes, temperature intolerance Respiratory ROS: no cough, shortness of breath, or wheezing Cardiovascular ROS: no chest pain or dyspnea on exertion Gastrointestinal ROS: denies abdominal pain, bright red blood in stool. Musculoskeletal ROS: no myalgias or arthralgias Neurological ROS: no TIA or stroke symptoms Dermatological ROS: no new or changing skin lesions, rashes or pruritis Physical Exam Physical Exam General appearance: alert, cooperative, no distress, appears stated age Head: Normocephalic, without obvious abnormality, atraumatic Eyes: conjunctivae/corneas clear. PERRL, EOM's intact. Fundi benign Throat: Lips, mucosa, and tongue normal. Teeth and gums normal Neck: supple, symmetrical, trachea midline, no adenopathy, thyroid: not enlarged, symmetric, no tenderness/mass/nodules, no carotid bruit and no JVD Lungs: clear to auscultation bilaterally Heart: regular rate and rhythm, S1, S2 normal, no murmur, click, rub or gallop Abdomen: soft, non-tender. Bowel sounds normal. No masses, no organomegaly Extremities: extremities normal, atraumatic, no cyanosis or edema Pulses: 2+ and symmetric Skin: Skin color, texture, turgor normal. No rashes or lesions right groin 3 cm x 2 cm fluctuant cyst no signs of acute active infection Neurologic: Grossly normal Last 24 Hour Vital Signs Date Time Temp Pulse Resp B/P (MAP) Pulse Ox O2 Delivery O2 Flow Rate FiO2 09/07/19 16:00 98.2 90 20 134/80 (98) 95 09/07/19 12:00 98.1 70 18 111/68 (82) 100 09/07/19 09:00 Room Air 09/07/19 08:15 73 102/59 09/07/19 08:13 73 102/59 09/07/19 08:00 98.1 73 20 102/59 (73) 99 09/07/19 04:00 98.0 89 18 120/90 (100) 94 09/07/19 00:00 98.5 93 18 119/80 (93) 96 09/06/19 21:00 Room Air 09/06/19 20:00 98.0 70 18 121/73 (89) 100 Intake and Output 09/06/19 09/07/19 19:00 07:00 Intake Total 1365 ml 560 ml Balance 1365 ml 560 ml Intake Oral 840 ml IV Total 525 ml 560 ml # Voids 5 2 Height (Feet): 5 Height (Inches): 1.00 Weight (Pounds): 100 Medications Current Medications Medications (Trade) Dose Ordered Sig/Karine Route PRN Reason Start Time Stop Time Status Last Admin Dose Admin Acetaminophen (Tylenol) 650 mg Q4H PRN ORAL fever 08/31/19 09:00 09/23/19 08:59 09/01/19 09:27 Acetaminophen (Tylenol) 650 mg Q4H PRN ORAL Mild Pain (Pain Scale 1-3) 08/31/19 09:00 09/23/19 08:59 Acyclovir (Zovirax) 800 mg FIVE TIMES A DAY ORAL 09/02/19 07:00 09/08/19 06:59 09/07/19 18:03 Cefazolin Sodium 2 gm/Dextrose 110 ml @ 220 mls/hr Q8H IVPB 09/04/19 15:00 09/11/19 14:59 09/07/19 15:13 Dextrose (Dextrose 50%) 25 ml Q30M PRN IV Hypoglycemia 08/31/19 08:45 09/24/19 00:44 Dextrose (Dextrose 50%) 50 ml Q30M PRN IV Hypoglycemia 08/31/19 08:45 09/24/19 00:44 Diltiazem HCl (Cardizem CD) 180 mg DAILY ORAL 08/31/19 09:00 09/24/19 12:59 09/06/19 08:21 Diphenhydramine HCl (Benadryl) 25 mg Q6H PRN IVP Itching 08/31/19 09:00 09/25/19 08:59 09/05/19 22:57 Docusate Sodium (Colace) 100 mg EVERY 12 HOURS ORAL 08/31/19 09:00 09/24/19 08:59 09/07/19 08:16 Insulin Aspart (NovoLOG) BEFORE MEALS AND HS SUBQ 08/31/19 11:30 09/24/19 16:29 09/07/19 16:26 Insulin Detemir (Levemir) 5 units QHS SUBQ 08/31/19 21:00 09/23/19 22:44 09/06/19 20:44 Metoprolol Succinate (Toprol XL) 50 mg DAILY ORAL 08/31/19 09:00 09/29/19 08:59 09/06/19 08:21 Mirtazapine (Remeron) 7.5 mg BEDTIME PRN ORAL insomnia 08/31/19 21:00 09/26/19 20:59 Ondansetron HCl (Zofran) 4 mg Q6H PRN IVP Nausea & Vomiting 08/31/19 09:00 09/23/19 08:59 Pantoprazole (Protonix) 40 mg DAILY ORAL 08/31/19 09:00 09/24/19 08:59 09/07/19 08:16 Prednisone (predniSONE) 5 mg DAILY ORAL 08/31/19 09:00 09/24/19 08:59 09/07/19 08:16 Sodium Chloride 1,000 ml @ 75 mls/hr [id number] IV 08/31/19 08:45 09/24/19 01:29 09/07/19 14:25 Tacrolimus (Prograf) 1 mg EVERY 12 HOURS ORAL 08/31/19 09:00 09/26/19 12:19 09/07/19 08:15 Assessment/Plan Problem List: (1) Mass of right inguinal region Assessment & Plan: 53-year-old female who has a known history of a right inguinal groin mass status post incision and drainage 3 prior times states she was told it was a cyst but it continues to recur and causes her discomfort. When she had a varicella outbreak it has been growing causing more discomfort. Wound was evaluated bedside. No acute active infectious process identified but there is a tender fluctuant 3 cm x 2 cm cyst in the right groin. Likely had I& D prior but not cyst excision. I had a long discussion with the patient regards to these findings and the care plan. Currently given her condition and state no plan for incision and drainage or excision of cyst and hole unless acute actively infected. Currently does not seem infected. Will monitor closely and if infected will consider intervention. Otherwise we will plan to follow patient patient for excision at a later time. Thank you for let me participate patient's care will follow with recommendations ICD Codes: R19.09 - Other intra-abdominal and pelvic swelling, mass and lump SNOMED: [id number] Jose Raul Reis Sep 07, 2019 19:54
[2019-09-07 20:00] VITALS: BP 120/77
[2019-09-07] MEDS: DiphenhydrAMINE 50mg/ml Inj IVP PRN (20:58)
[2019-09-07] MEDS: Levemir Flexpen SUBQ SCH (20:58)
[2019-09-08] VITALS (7 sets, daily range): BP systolic 119–131; BP diastolic 66–78
[2019-09-08] MEDS: ceFAZolin sod 2 GM in D5W 110 ML IVPB SCH ×3 (06:06→23:03)
[2019-09-08] MEDS: NovoLOG Insulin Flexpen SUBQ SCH ×4 (06:12→21:27)
--- NOTE | 2019-09-08 07:25 | NUR ---
HAND-OFF: Report given to Celina Martin.
--- NOTE | 2019-09-08 07:30 | NUR ---
NURSE NOTES: Patient seen on rounds, up at bedside eating breakfast, AxOx4, not in distress, no complaints of pain. Vesicular rashes noted over face and body, rashes look dry and crusted. Vitals WNL. Bed low and locked, side rails up x 2, call light within reach. Instructed patient to call nurse for assistance. Will continue to monitor.
[2019-09-08] MEDS: Docusate 100mg cap ORAL SCH ×2 (08:37→21:23)
[2019-09-08] MEDS: dilTIAZem HCl CD 180mg cap ORAL SCH (08:37)
[2019-09-08] MEDS: Metoprolol Succinate XL 50mg tab ORAL SCH (08:37)
[2019-09-08 08:38] LABS: BASOPHILS % (AUTO) 2.4 % (0.0-2.0); EOSINOPHILS % (AUTO) 0.6 % (0.0-3.0); HEMATOCRIT 34.6 % (37.0-47.0); HEMOGLOBIN 11.6 G/DL (12.0-16.0); LYMPHOCYTES % (AUTO) 14.3 % (20.0-45.0); MEAN CORPUSCULAR VOLUME 90 FL (80-99); NEUTROPHILS % (AUTO) 75.7 % (45.0-75.0); PLATELET COUNT 148 K/UL (150-450); RED BLOOD COUNT 3.85 M/UL (4.20-5.40); RED CELL DISTRIBUTION WIDTH 11.8 % (11.6-14.8); WHITE BLOOD COUNT 6.1 K/UL (4.8-10.8)
[2019-09-08 08:45] LABS: ANION GAP 9 mmol/L (5-15); BLOOD UREA NITROGEN 7 mg/dL (7-18); CALCIUM 8.8 MG/DL (8.5-10.1); CARBON DIOXIDE 26 MMOL/L (21-32); CHLORIDE 104 MMOL/L (98-107); CREATININE 0.8 MG/DL (0.55-1.30); POTASSIUM 3.6 MMOL/L (3.5-5.1); SODIUM 139 MMOL/L (136-145)
--- NOTE | 2019-09-08 09:24 | General Progress Note ---
Assessment/Plan Status: stable Assessment/Plan: 53-year-old AAF with PMH of renal transplant 5 years ago, DM type II, who presented to the ED for rash Pt believes this developed as a side effect after recieving the MMR vaccine in late June. On admission patient was found to be in Mobitz type II. Rashes were concerning for disseminated varicella for which patient was admitted for further treatment and evaluation. #Disseminated varicella Continue inpatient medical care Cont oral acyclovir IV Benadryl for pruritis Airborne precautions stopped Cleared by Ophthalmology ID following: acyclovir PO x1 more day #Sepsis, MSSA bacteremia -continue cefazolin -follow up final blood cultures -TTE nondiagnostic, JOVON on 09/09, NPO past MN for procedure #Mobitz Type II - resolved Seen on EKG on admission pt denies any CP, SOB, palpitations U tox positive for cocaine and cannabis Cardio, Dr. Tristan following No indication for PPM at this time #Acute bacterial conjunctivitis, right eye - improved moxifloxacin eye drops cont. to monitor #right groin cyst painful, no erythema, does not appear infected General Sx consulted, recs noted, no intervention at this time, f/u o/p #h/o renal transplant pt pending transfer to [facility] for further evaluation and work up, sign out given to accepting MD off mycophenolate per Renal cont Prograf 1 mg bid, levels pending Nephrology recs appreciated #Hypokalemia -replace with oral KCl prn -monitor BMP #H/o medical non-compliance #Irrational behavior Urine tox positive for THC and cocaine explained to pt multiple times need for JOVON to r/o vegetations psych following #Diabetes type 2 #Non-compliance #Hyperglycemia obtain A1C ISS, FSBS, insuin 5 U qHS #Hypomagnesemia Replace Continue to monitor, replace as needed DVT PPx: lovenox Time spent on encounter: 35 mins, >50% on pt counseling, coordination of care. Subjective Allergies: Coded Allergies: No Known Allergies (Unverified , 10/21/17) Subjective Follow up for disseminated VZV infection and MSSA bacteremia No acute events overnight. Pt denies any CP, SOB, abd pain. Pt remains with poor medical insight. JOVON rescheduled for Saturday 09/09 Objective Last 24 Hour Vital Signs Date Time Temp Pulse Resp B/P (MAP) Pulse Ox O2 Delivery O2 Flow Rate FiO2 3/22/20 08:37 79 122/74 09/08/19 08:37 79 122/74 09/08/19 08:00 98.2 79 17 122/74 (90) 98 09/08/19 04:00 98.2 73 18 131/71 (91) 96 09/08/19 00:00 98.5 76 18 125/74 (91) 97 09/07/19 21:00 Room Air 09/07/19 20:00 98.3 72 18 120/77 (91) 96 09/07/19 16:00 98.2 90 20 134/80 (98) 95 09/07/19 12:00 98.1 70 18 111/68 (82) 100 Intake and Output 09/07/19 09/08/19 19:00 07:00 Intake Total 1780 ml 675 ml Balance 1780 ml 675 ml Intake Oral 960 ml IV Total 820 ml 675 ml # Voids 2 Laboratory Tests 09/08/19 08:08: White Blood Count 6.1, Red Blood Count 3.85L, Hemoglobin 11.6L, Hematocrit 34.6L , Mean Corpuscular Volume 90, Mean Corpuscular Hemoglobin 30.1, Mean Corpuscular Hemoglobin Concent 33.5, Red Cell Distribution Width 11.8, Platelet Count 148L, Mean Platelet Volume 13.6H, Neutrophils (%) (Auto) 75.7H, Lymphocytes (%) (Auto) 14.3L, Monocytes (%) (Auto) 7.0, Eosinophils (%) (Auto) 0.6, Basophils (%) (Auto) 2.4H, Sodium Level 139, Potassium Level 3.6, Chloride Level 104, Carbon Dioxide Level 26, Anion Gap 9, Blood Urea Nitrogen 7, Creatinine 0.8, Estimat Glomerular Filtration Rate > 60, Glucose Level 256H, Calcium Level 8.8 Height (Feet): 5 Height (Inches): 1.00 Weight (Pounds): 100 Objective General Appearance: alert, awake, NAD, sitting up in bed Neck: supple Cardiovascular: normal rate, regular rhythm Respiratory/Chest: lungs clear, normal breath sounds Abd: soft, NT/ND ext: no edema Skin: healing sores on face Zeina Erickson M.D. Sep 08, 2019 09:24
--- NOTE | 2019-09-08 14:59 | Surgery Progress Note ---
Surgery Progress Note Subjective Additional Comments No acute events. Resting comfortable. Labs stable. No nausea vomiting fever chills. Micro noted. Objective Last 24 Hour Vital Signs Date Time Temp Pulse Resp B/P (MAP) Pulse Ox O2 Delivery O2 Flow Rate FiO2 09/08/19 12:00 98.1 78 18 120/78 (92) 99 09/08/19 09:00 Room Air 09/08/19 08:37 79 122/74 09/08/19 08:37 79 122/74 09/08/19 08:00 98.2 79 17 122/74 (90) 98 09/08/19 04:00 98.2 73 18 131/71 (91) 96 09/08/19 00:00 98.5 76 18 125/74 (91) 97 09/07/19 21:00 Room Air 09/07/19 20:00 98.3 72 18 120/77 (91) 96 09/07/19 16:00 98.2 90 20 134/80 (98) 95 I&O Intake and Output 09/07/19 09/08/19 19:00 07:00 Intake Total 1780 ml 970 ml Balance 1780 ml 970 ml Intake Oral 960 ml IV Total 820 ml 970 ml # Voids 2 Dressing: dry Wound: clean Cardiovascular: RSR Respiratory: clear Abdomen: soft, non-tender, present bowel sounds Extremities: no edema, no tenderness, no cyanosis, other Laboratory Tests Test 09/08/19 08:08 White Blood Count 6.1 K/UL (4.8-10.8) Red Blood Count 3.85 M/UL (4.20-5.40) L Hemoglobin 11.6 G/DL (12.0-16.0) L Hematocrit 34.6 % (37.0-47.0) L Mean Corpuscular Volume 90 FL (80-99) Mean Corpuscular Hemoglobin 30.1 PG (27.0-31.0) Mean Corpuscular Hemoglobin Concent 33.5 G/DL (32.0-36.0) Red Cell Distribution Width 11.8 % (11.6-14.8) Platelet Count 148 K/UL (150-450) L Mean Platelet Volume 13.6 FL (6.5-10.1) H Neutrophils (%) (Auto) 75.7 % (45.0-75.0) H Lymphocytes (%) (Auto) 14.3 % (20.0-45.0) L Monocytes (%) (Auto) 7.0 % (1.0-10.0) Eosinophils (%) (Auto) 0.6 % (0.0-3.0) Basophils (%) (Auto) 2.4 % (0.0-2.0) H Sodium Level 139 MMOL/L (136-145) Potassium Level 3.6 MMOL/L (3.5-5.1) Chloride Level 104 MMOL/L (98-107) Carbon Dioxide Level 26 MMOL/L (21-32) Anion Gap 9 mmol/L (5-15) Blood Urea Nitrogen 7 mg/dL (7-18) Creatinine 0.8 MG/DL (0.55-1.30) Estimat Glomerular Filtration Rate > 60 mL/min (>60) Glucose Level 256 MG/DL (74-106) H Calcium Level 8.8 MG/DL (8.5-10.1) Plan Problems: (1) Mass of right inguinal region Assessment & Plan: 53-year-old female who has a known history of a right inguinal groin mass status post incision and drainage 3 prior times states she was told it was a cyst but it continues to recur and causes her discomfort. When she had a varicella outbreak it has been growing causing more discomfort. Wound was evaluated bedside. No acute active infectious process identified but there is a tender fluctuant 3 cm x 2 cm cyst in the right groin. Likely had I& D prior but not cyst excision. I had a long discussion with the patient regards to these findings and the care plan. Currently given her condition and state no plan for incision and drainage or excision of cyst and hole unless acute actively infected. Currently does not seem infected. Will monitor closely and if infected will consider intervention. Otherwise we will plan to follow patient patient for excision at a later time. Thank you for let me participate patient's care will follow with recommendations Jose Raul Reis Sep 08, 2019 14:59
--- NOTE | 2019-09-08 17:13 | NUR ---
NURSE NOTES: Pharmacist recommended tacrolimus level. Dr. Erickson agreed and RN received order to do tacrolimus level in am.
--- NOTE | 2019-09-08 17:15 | NUR ---
NURSE NOTES: Patient verbalized that she is allergic to alcohol pads and she gets rashes. Updated allergy.
--- NOTE | 2019-09-08 19:10 | NUR ---
NURSE NOTES: Received patient in bed. Awake, A/O x4. On room air, respirations unlabored. Patient denies pain. IV in the Left forearm, site is intact infusing IVF as ordered. Varicella rash scars noted on face and extremities. Bed at the lowest position, bed locked, side rails up x2, call light within reach.
--- NOTE | 2019-09-08 19:31 | NUR ---
HAND-OFF: Report given to Román Delgado RN.
[2019-09-08] MEDS: Levemir Flexpen SUBQ SCH (21:27)
[2019-09-09 04:00] VITALS: BP 114/69
[2019-09-09] MEDS: ceFAZolin sod 2 GM in D5W 110 ML IVPB SCH ×3 (06:17→23:00)
[2019-09-09] MEDS: NovoLOG Insulin Flexpen SUBQ SCH ×4 (06:20→20:48)
--- NOTE | 2019-09-09 07:15 | NUR ---
HAND-OFF: Report given to Elina MELENDEZ.
--- NOTE | 2019-09-09 07:58 | NUR ---
NURSE NOTES: Patient alert x4; room air, no sing of distress and shortness of breath; IV Left For-Arm 22G NS 75cc running; patient ambulatory; side rails up x2, breaks engaged, bed at lowest position; will check blood sugar as scheduled; call light within reach; will keep monitoring.
[2019-09-09 08:00] VITALS: BP 123/64
[2019-09-09] MEDS: dilTIAZem HCl CD 180mg cap ORAL SCH (09:11)
[2019-09-09] MEDS: Docusate 100mg cap ORAL SCH ×2 (09:11→20:46)
[2019-09-09] MEDS: Metoprolol Succinate XL 50mg tab ORAL SCH (09:11)
[2019-09-09 12:00] VITALS: BP 127/82
--- NOTE | 2019-09-09 13:03 | NUR ---
RD ASSESSMENT & RECOMMENDATIONS SEE CARE ACTIVITY FOR COMPLETE ASSESSMENT DAILY ESTIMATED NEEDS: Needs based on DM, underweight 44kg 30-35 kcals/kg 2407-7101 total kcals 1-1.5 g protein/kg 44-66 g total protein 25-30 mL/kg 9357-2194 total fluid mLs NUTRITION DIAGNOSIS: Altered nutrition related lab values r/t IDDM as evidenced by A1C 9.1, POC glu (183-322), adm w/ (+) tox for cocaine. CURRENT DIET:REGULAR -> CCHO LOW PO DIET RECOMMENDATIONS: CCHO LOW / LOW NA DIET ADDITIONAL RECOMMENDATIONS: 1) Obtain a calibrated bed scale wt 2) Monitor po intake -> now improved, 100% of all meals Pt admits to getting food from outside as well 3) Consider increasing Levemir - BGs variable and uncontrolled, not compliant to diet, on Prednisone.
--- NOTE | 2019-09-09 13:44 | NUR ---
*-* INSURANCE *-* ALL CLINICALS AND REVIEWS HAVE BEEN FAXED TO: [facility] P: [phone] F: [phone] & [facility] AUTH# [id number] FAX ALL CLINICALS TO [phone]
--- NOTE | 2019-09-09 14:16 | General Progress Note ---
Assessment/Plan Status: stable Assessment/Plan: 53-year-old AAF with PMH of renal transplant 5 years ago, DM type II, who presented to the ED for rash Pt believes this developed as a side effect after recieving the MMR vaccine in late June. On admission patient was found to be in Mobitz type II. Rashes were concerning for disseminated varicella for which patient was admitted for further treatment and evaluation. #Disseminated varicella Continue inpatient medical care S/p oral acyclovir IV Benadryl for pruritis Airborne precautions stopped ID following Cleared by Ophthalmology #Sepsis, MSSA bacteremia -continue cefazolin day #13 -follow up final blood cultures -TTE nondiagnostic, JOVON tomorrow, if negative can be discharged home s/p 14 days of IV abx #Mobitz Type II Seen on EKG on admission pt denies any CP, SOB, palpitations U tox positive for cocaine and cannabis Cardio, Dr. Tristan following No indication for PPM at this time #Acute bacterial conjunctivitis, right eye cont moxifloxacin eye drops #h/o renal transplant pt pending transfer to [facility] for further evaluation and work up, sign out given to accepting MD off mycophenolate per Renal cont Prograf 1 mg bid, levels pending Nephrology recs appreciated #Hypokalemia -replace with oral KCl prn -monitor BMP #H/o medical non-compliance #Irrational behavior Urine tox positive for THC and cocaine psych following #Diabetes type 2 #Non-compliance #Hyperglycemia obtain A1C ISS, FSBS, insuin 5 U qHS #Hypomagnesemia Replace Continue to monitor, replace as needed DVT PPx: lovenox Time spent on encounter: 35 mins, >50% on pt counseling, coordination of care. Subjective Date patient seen: Sep 09, 2019 Time patient seen: 09:00 ROS Limited/Unobtainable: No Constitutional: Denies: fever Cardiovascular: Denies: chest pain Respiratory: Denies: cough Allergies: Uncoded Allergies: alcohol pads (Allergy, Unknown, Rash, 09/08/19) Subjective Follow up for disseminated VZV infection and MSSA bacteremia No new complaints Cefazolin day #13 today JOVON tomorrow Objective Last 24 Hour Vital Signs Date Time Temp Pulse Resp B/P (MAP) Pulse Ox O2 Delivery O2 Flow Rate FiO2 09/09/19 12:00 98.7 91 19 127/82 (97) 97 09/09/19 09:11 79 123/64 09/09/19 09:11 79 123/64 09/09/19 09:00 Room Air 09/09/19 08:00 98.6 79 18 123/64 (83) 96 09/09/19 04:00 98.7 78 17 114/69 (84) 99 09/08/19 23:10 98.1 74 16 119/66 (83) 98 09/08/19 21:00 Room Air 09/08/19 20:00 98.4 71 16 123/70 (87) 97 09/08/19 16:00 98.1 73 17 120/76 (91) 98 Intake and Output 09/08/19 09/09/19 19:00 07:00 Intake Total 1345 ml 400 ml Balance 1345 ml 400 ml Intake Oral 300 ml 400 ml IV Total 1045 ml # Voids 3 3 Laboratory Tests 09/09/19 06:25: Tacrolimus (Prograf) Level [Pending] Height (Feet): 5 Height (Inches): 1.00 Weight (Pounds): 100 General Appearance: no apparent distress, alert Neck: normal alignment, supple Cardiovascular: normal rate, regular rhythm Respiratory/Chest: lungs clear, normal breath sounds Abdomen: non tender, soft Ashvin Pacheco MD Sep 09, 2019 14:16
--- NOTE | 2019-09-09 15:20 | NUR ---
CASE MANAGEMENT:REVIEW SI;DISSEMINATED VARICELLA. NIDDM. RT GROIN CYST. HX RENAL TRANSPLANT. 98.7 91 19 123/64 96% ON RA NO LABS AVAILABLE IS;CEFAZOLIN IV Q8 HRS LEVEMIR SUBQ HS CARDIZEM PO QD PROTONIX PO QD PREDNISONE PO QD IVF NS @ 75 ML/HR TOPROL PO QD MED SURG STATUS DCP;FROM HOME PLAN OF CARE; JOVON TO RULE OUT VEGETATIONS FOLLOW UP BLOOD CX
--- NOTE | 2019-09-09 15:41 | Surgery Progress Note ---
Surgery Progress Note Subjective Symptoms: improved, tolerating diet, passing flatus, BM Objective Last 24 Hour Vital Signs Date Time Temp Pulse Resp B/P (MAP) Pulse Ox O2 Delivery O2 Flow Rate FiO2 09/09/19 12:00 98.7 91 19 127/82 (97) 97 09/09/19 09:11 79 123/64 09/09/19 09:11 79 123/64 09/09/19 09:00 Room Air 09/09/19 08:00 98.6 79 18 123/64 (83) 96 09/09/19 04:00 98.7 78 17 114/69 (84) 99 09/08/19 23:10 98.1 74 16 119/66 (83) 98 09/08/19 21:00 Room Air 09/08/19 20:00 98.4 71 16 123/70 (87) 97 09/08/19 16:00 98.1 73 17 120/76 (91) 98 I&O Intake and Output 09/08/19 09/09/19 19:00 07:00 Intake Total 1345 ml 400 ml Balance 1345 ml 400 ml Intake Oral 300 ml 400 ml IV Total 1045 ml # Voids 3 3 Dressing: dry Wound: clean Cardiovascular: RSR Respiratory: clear Abdomen: soft, non-tender, present bowel sounds Extremities: no edema, no cyanosis Laboratory Tests Test 09/09/19 06:25 Tacrolimus (Prograf) Level Pending Plan Problems: (1) Mass of right inguinal region Assessment & Plan: 53-year-old female who has a known history of a right inguinal groin mass status post incision and drainage 3 prior times states she was told it was a cyst but it continues to recur and causes her discomfort. When she had a varicella outbreak it has been growing causing more discomfort. Wound was evaluated bedside. No acute active infectious process identified but there is a tender fluctuant 3 cm x 2 cm cyst in the right groin. Likely had I& D prior but not cyst excision. I had a long discussion with the patient regards to these findings and the care plan. Currently given her condition and state no plan for incision and drainage or excision of cyst and hole unless acute actively infected. Currently does not seem infected. Will monitor closely and if infected will consider intervention. Otherwise we will plan to follow patient patient for excision at a later time. Thank you for let me participate patient's care will follow with recommendations Jose Raul Reis Sep 09, 2019 15:41
[2019-09-09 16:00] VITALS: BP 100/64
--- NOTE | 2019-09-09 17:05 | Infectious Diseases Prog Note ---
Assessment/Plan Assessment/Plan ASSESSMENT AND PLAN: 1. disseminated varicella virus infection, airborne isolation staph aureus/mssa/streptococcus bacteremia, sepsis, ? endocarditis, right arm cellulitis with infiltrated iv that was changed - finish acyclovir - cefazolin - day # 13 - await JOVON - will determine length of abx treatment, plan on tomorrow - TTE - no vegetations mentioned - lesions crusting - monitor low grade temperatures - check surveillance blood cultures - monitor right arm cellulitis/swelling - improved 2. Right eye conjunctivitis - less drainage, improved, cleared by ophthalmology , moxifloxacin eye drops 3. Renal transplant patient. 4. Diabetes. 5. Questionable hypertension. 6. Blood sugar treatment per primary care team for diabetes type 2. 7. Urine drug screen positive for cocaine and THC. 8. The patient is renal transplant patient and is immunocompromised. 9. Mobitz type 2 heart block. Treatment per Cardiology. 10. Continue treatment primary consultants. 11. No known drug allergies. 12. Social history looks like positive for THC and cocaine, but no history of smoking and alcohol per discussion with the patient. 13. Family history is noncontributory. 14. MAR is noted. 15. Case was discussed with RN. Subjective Constitutional: Denies: fever HEENT: Denies: congestion Respiratory: Denies: shortness of breath Cardiovascular: Denies: chest pain Gastrointestinal/Abdominal: Denies: nausea, vomiting, diarrhea Genitourinary: Reports: other - no forte Neurologic: Denies: headache Psychiatric: Denies: depression Skin: Denies: rash Hematologic: Denies: bleeding Musculoskeletal: Denies: pain Allergies: Uncoded Allergies: alcohol pads (Allergy, Unknown, Rash, 09/08/19) Objective Vital Signs Last 24 Hour Vital Signs Date Time Temp Pulse Resp B/P (MAP) Pulse Ox O2 Delivery O2 Flow Rate FiO2 09/09/19 16:00 98.6 72 18 100/64 (76) 98 09/09/19 12:00 98.7 91 19 127/82 (97) 97 09/09/19 09:11 79 123/64 09/09/19 09:11 79 123/64 09/09/19 09:00 Room Air 09/09/19 08:00 98.6 79 18 123/64 (83) 96 09/09/19 04:00 98.7 78 17 114/69 (84) 99 09/08/19 23:10 98.1 74 16 119/66 (83) 98 09/08/19 21:00 Room Air 09/08/19 20:00 98.4 71 16 123/70 (87) 97 Height (Feet): 5 Height (Inches): 1.00 Weight (Pounds): 100 General Appearance: no acute distress HEENT: normocephalic, atraumatic, anicteric, mucous membranes moist Respiratory/Chest: lungs clear, normal breath sounds, no respiratory distress, no accessory muscle use Cardiovascular: normal rate, regular rhythm, no gallop/murmur, no JVD Abdomen: normal bowel sounds, soft, non tender, no organomegaly, non distended Genitourinary: other - no forte Extremities: no cyanosis Skin: no rash Neurologic/Psychiatric: animal care assistant II-XII grossly normal, alert, oriented x 3, responsive Lymphatic: no neck adenopathy Musculoskeletal: no effusion Objective Chest x-ray - Procedure: XRAY Chest 1v EXAM: XR Chest, 1 View CLINICAL HISTORY: CP TECHNIQUE: Frontal view of the chest. COMPARISON: No relevant prior studies available. FINDINGS: Lungs: No consolidation. Pleural space: Unremarkable. No pneumothorax. Heart: Unremarkable. No cardiomegaly. Mediastinum: Unremarkable. Bones/joints: No acute fracture. IMPRESSION: No acute cardiopulmonary disease. 08/29/19 - chest x-ray - nad, report noted Microbiology Date/Time Source Procedure Growth Status 09/02/19 06:00 Blood Blood Culture - Final NO GROWTH AFTER 5 DAYS Complete 08/28/19 19:30 Nasal Nares - Final Complete 08/28/19 19:30 Nasal Nares - Final Complete Labs Test 09/08/19 08:08 09/09/19 06:25 White Blood Count 6.1 K/UL (4.8-10.8) Red Blood Count 3.85 M/UL (4.20-5.40) Hemoglobin 11.6 G/DL (12.0-16.0) Hematocrit 34.6 % (37.0-47.0) Mean Corpuscular Volume 90 FL (80-99) Mean Corpuscular Hemoglobin 30.1 PG (27.0-31.0) Mean Corpuscular Hemoglobin Concent 33.5 G/DL (32.0-36.0) Red Cell Distribution Width 11.8 % (11.6-14.8) Platelet Count 148 K/UL (150-450) Mean Platelet Volume 13.6 FL (6.5-10.1) Neutrophils (%) (Auto) 75.7 % (45.0-75.0) Lymphocytes (%) (Auto) 14.3 % (20.0-45.0) Monocytes (%) (Auto) 7.0 % (1.0-10.0) Eosinophils (%) (Auto) 0.6 % (0.0-3.0) Basophils (%) (Auto) 2.4 % (0.0-2.0) Sodium Level 139 MMOL/L (136-145) Potassium Level 3.6 MMOL/L (3.5-5.1) Chloride Level 104 MMOL/L (98-107) Carbon Dioxide Level 26 MMOL/L (21-32) Anion Gap 9 mmol/L (5-15) Blood Urea Nitrogen 7 mg/dL (7-18) Creatinine 0.8 MG/DL (0.55-1.30) Estimat Glomerular Filtration Rate > 60 mL/min (>60) Glucose Level 256 MG/DL (74-106) Calcium Level 8.8 MG/DL (8.5-10.1) Laboratory Tests Test 09/09/19 06:25 Tacrolimus (Prograf) Level Pending Current Medications Medications (Trade) Dose Ordered Sig/Karine Route PRN Reason Start Time Stop Time Status Last Admin Dose Admin Acetaminophen (Tylenol) 650 mg Q4H PRN ORAL fever 08/31/19 09:00 09/23/19 08:59 09/01/19 09:27 Acetaminophen (Tylenol) 650 mg Q4H PRN ORAL Mild Pain (Pain Scale 1-3) 08/31/19 09:00 09/23/19 08:59 Cefazolin Sodium 2 gm/Dextrose 110 ml @ 220 mls/hr Q8H IVPB 09/04/19 15:00 09/11/19 14:59 09/09/19 16:10 Dextrose (Dextrose 50%) 25 ml Q30M PRN IV Hypoglycemia 08/31/19 08:45 09/24/19 00:44 Dextrose (Dextrose 50%) 50 ml Q30M PRN IV Hypoglycemia 08/31/19 08:45 09/24/19 00:44 Diltiazem HCl (Cardizem CD) 180 mg DAILY ORAL 08/31/19 09:00 09/24/19 12:59 09/09/19 09:11 Diphenhydramine HCl (Benadryl) 25 mg Q6H PRN IVP Itching 08/31/19 09:00 09/25/19 08:59 09/07/19 20:58 Docusate Sodium (Colace) 100 mg EVERY 12 HOURS ORAL 08/31/19 09:00 09/24/19 08:59 09/09/19 09:11 Insulin Aspart (NovoLOG) BEFORE MEALS AND HS SUBQ 08/31/19 11:30 09/24/19 16:29 09/09/19 12:43 Insulin Detemir (Levemir) 5 units QHS SUBQ 08/31/19 21:00 09/23/19 22:44 09/08/19 21:27 Metoprolol Succinate (Toprol XL) 50 mg DAILY ORAL 08/31/19 09:00 09/29/19 08:59 09/09/19 09:11 Mirtazapine (Remeron) 7.5 mg BEDTIME PRN ORAL insomnia 08/31/19 21:00 09/26/19 20:59 09/08/19 23:03 Ondansetron HCl (Zofran) 4 mg Q6H PRN IVP Nausea & Vomiting 08/31/19 09:00 09/23/19 08:59 Pantoprazole (Protonix) 40 mg DAILY ORAL 08/31/19 09:00 09/24/19 08:59 09/09/19 09:11 Prednisone (predniSONE) 5 mg DAILY ORAL 08/31/19 09:00 09/24/19 08:59 09/09/19 09:11 Sodium Chloride 1,000 ml @ 75 mls/hr [id number] IV 08/31/19 08:45 09/24/19 01:29 09/08/19 23:11 Tacrolimus (Prograf) 1 mg EVERY 12 HOURS ORAL 08/31/19 09:00 09/26/19 12:19 09/09/19 09:11 Juana Roach MD Sep 09, 2019 17:05
--- NOTE | 2019-09-09 19:05 | NUR ---
NURSE NOTES: Received patient in bed. Awake, A/O x4. On room air. Patient denies pain at this time. IV in the Left forearm intact infusing IVF well. Patient informed on NPO past midnight. Bed at the lowest position, bed locked, call light within reach.
--- NOTE | 2019-09-09 19:09 | NUR ---
NURSE NOTES: Patient signed consent for JOVON and patient is aware and sing at the bed that patient will be NPO after mid-night.
--- NOTE | 2019-09-09 19:10 | NUR ---
HAND-OFF: Report given to AL Delgado. Endorsed to PM nurse that patient needs to be NPO for JOVON 09/10/2019. Endorsed also that consent in file for JOVON.
[2019-09-09 20:00] VITALS: BP 105/65
[2019-09-09] MEDS: Levemir Flexpen SUBQ SCH (20:48)
[2019-09-10] VITALS (7 sets, daily range): BP systolic 111–149; BP diastolic 62–88
--- NOTE | 2019-09-10 01:00 | Progress Note ---
DATE: 09/10/2019 SUBJECTIVE: The patient is calm, cooperative, depressed, withdrawn. No behavior issues noted. Compliant with medications. MENTAL STATUS EXAMINATION: The patient is alert and oriented times self, place. Mood is neutral. Affect is flat. Thought process is concrete. Thought content, no suicidal or homicidal ideation. ASSESSMENT: Stable. PLAN: 1. Continue current medications. 2. Provide the patient with reality orientation and supportive therapy. Hilaria Meza M.D. DR: ISA JOB#: [id number] CC:
--- NOTE | 2019-09-10 05:40 | NUR ---
NURSE NOTES: Tylenol PO given for temperature of 100.4.
[2019-09-10] MEDS: NovoLOG Insulin Flexpen SUBQ SCH (06:30)
[2019-09-10 06:32] LABS: BASOPHILS % (AUTO) 2.4 % (0.0-2.0); EOSINOPHILS % (AUTO) 0.7 % (0.0-3.0); HEMATOCRIT 29.9 % (37.0-47.0); HEMOGLOBIN 10.3 G/DL (12.0-16.0); LYMPHOCYTES % (AUTO) 13.4 % (20.0-45.0); MEAN CORPUSCULAR VOLUME 89 FL (80-99); MONOCYTES % (AUTO) 8.7 % (1.0-10.0); NEUTROPHILS % (AUTO) 74.7 % (45.0-75.0); PLATELET COUNT 103 K/UL (150-450); RED BLOOD COUNT 3.35 M/UL (4.20-5.40); RED CELL DISTRIBUTION WIDTH 11.7 % (11.6-14.8); WHITE BLOOD COUNT 6.5 K/UL (4.8-10.8)
[2019-09-10] MEDS: ceFAZolin sod 2 GM in D5W 110 ML IVPB SCH (06:38)
[2019-09-10 06:48] LABS: ALANINE AMINOTRANSFERASE 14 U/L (12-78); ALBUMIN 2.2 G/DL (3.4-5.0); ALBUMIN/GLOBULIN RATIO 0.6 (1.0-2.7); ALKALINE PHOSPHATASE 199 U/L (46-116); ANION GAP 9 mmol/L (5-15); ASPARTATE AMINO TRANSFERASE 28 U/L (15-37); BILIRUBIN,TOTAL 0.2 MG/DL (0.2-1.0); BLOOD UREA NITROGEN 11 mg/dL (7-18); CALCIUM 8.3 MG/DL (8.5-10.1); CARBON DIOXIDE 25 MMOL/L (21-32); CHLORIDE 107 MMOL/L (98-107); CREATININE 0.7 MG/DL (0.55-1.30); POTASSIUM 3.9 MMOL/L (3.5-5.1); SODIUM 141 MMOL/L (136-145)
--- NOTE | 2019-09-10 07:21 | NUR ---
HAND-OFF: Report given to Elina Patrick. Consent form signed by patient for JOVON.
--- NOTE | 2019-09-10 07:37 | NUR ---
NURSE NOTES: Patient awake, alert x4; on room air, no sing of distress and shortness of breath; no sing of chest pain; IV Left For-Arm 22G NS running; patient NPO for JOVON, Consent in patient's chart; according to the report from PM nurseDenton, patient had a fever last night and given Tylenol 650 mg; will keep monitoring; side rails up x2, breaks engaged, bed at lowest position, call light within reach; will keep monitoring.
--- NOTE | 2019-09-10 08:07 | NUR ---
NURSE NOTES: I was told by charge nurse, Mario, to call Cardiology at [phone], regarding patient Morgan; no body answer the phone, will keep trying.
[2019-09-10] MEDS: Metoprolol Succinate XL 50mg tab ORAL SCH (09:00)
[2019-09-10] MEDS: dilTIAZem HCl CD 180mg cap ORAL SCH (09:00)
[2019-09-10] MEDS: Docusate 100mg cap ORAL SCH (09:00)
--- NOTE | 2019-09-10 09:13 | NUR ---
NURSE NOTES: I called MD Lyle, to find out if it is OK to give patient's morning medications since patient scheduled for JOVON at 1030; I spoke to Anton; waiting call back.
--- NOTE | 2019-09-10 09:18 | NUR ---
NURSE NOTES: MD Ericksno called back, saying Hold morning medications prior to JOVON.
--- NOTE | 2019-09-10 10:38 | Pre-Procedure Note/Attestation ---
Pre-Procedure Note/Attestation Complete Prior to Procedure Procedure Narrative: hao Indications for Procedure Pre-Operative Diagnosis: bacteremia Attestation I attest that I discussed the nature of the procedure; its benefits; risks and complications; and alternatives (and the risks and benefits of such alternatives ), prior to the procedure, with the patient (or the patient's legal marketing representative). I attest that, if there was a reasonable possibility of needing a blood transfusion, the patient (or the patient's legal marketing representative) was given the [facility] standardized written summary, pursuant to the Eve[place] Blood Safety Act ([place] Health and Safety Code # 1645, as amended). 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
[2019-09-10] MEDS ORDERED: Alfentanil 2ml Inj ONE (10:55)
[2019-09-10] MEDS ORDERED: Lidocaine 1% Plain 30 ml INJ ONE (10:55)
--- NOTE | 2019-09-10 10:55 | NUR ---
NURSE NOTES: Patient left the floor by chase for JOVON;
[2019-09-10] MEDS ORDERED: Flumazenil 0.1mg/ml 5ml Inj IV ONE (11:00)
[2019-09-10] MEDS ORDERED: LR 1000ml ONE (11:00)
[2019-09-10] MEDS ORDERED: Propofol 200mg/20ml IV ONE (11:00)
[2019-09-10] MEDS ORDERED: LR 1000ml 1,000 ML IVLG SCH (11:03)
[2019-09-10] MEDS ORDERED: NS 500ML IVPB ONE (11:05)
[2019-09-10] MEDS ORDERED: Hydromorphone 0.5mg/0.5ml inj IVP PRN (11:15)
[2019-09-10] MEDS ORDERED: DiphenhydrAMINE 50mg/ml Inj IVP PRN (11:15)
[2019-09-10] MEDS ORDERED: LORazepam Inj 2mg/ml 1ml IV PRN (11:15)
[2019-09-10] MEDS ORDERED: oxyCODONE HCL/Acetaminophen 5/325mg ORAL PRN (11:15)
[2019-09-10] MEDS ORDERED: Labetalol 5mg/ml 20ml vial IV PRN (11:15)
[2019-09-10] MEDS ORDERED: Meperidine 25mg/0.5ml Inj (FOR RIGORS ONLY) IV PRN (11:15)
[2019-09-10] MEDS ORDERED: fentaNYL 100 mcg/2 mL IV PRN (11:15)
[2019-09-10] MEDS ORDERED: HYDROcodone/Acetamin 7.5/325 tab ORAL PRN (11:15)
[2019-09-10] MEDS ORDERED: Atropine Sulfate 0.4mg/ml inj IVP PRN (11:15)
[2019-09-10] MEDS ORDERED: HYDROcodone/Acetamin 5/325 tab ORAL PRN (11:15)
[2019-09-10] MEDS ORDERED: Metoclopramide 10mg/2ml Inj IVP PRN (11:15)
--- NOTE | 2019-09-10 11:29 | Immediate Post-Op Evaluation ---
Immediate Post-Op Evalulation Immediate Post-Op Evalulation Procedure: JOVON Date of Evaluation: Sep 10, 2019 Time of Evaluation: 12:04 IV Fluids: 200 LR Blood Products: 0 Estimated Blood Loss: 2 Urinary Output: 0 Blood Pressure Systolic: 122 Blood Pressure Diastolic: 78 Pulse Rate: 70 Respiratory Rate: 16 O2 Sat by Pulse Oximetry: 98 Temperature (Fahrenheit): 98.9 Pain Score (1-10): 2 Nausea: No Vomiting: No Complications 0 Patient Status: awake, reacts, patent, none Hydration Status: adequate Celso Jordan MD Sep 10, 2019 11:29
--- NOTE | 2019-09-10 11:29 | Anethesia Preoperative Eval ---
Anesthesia Pre-op PMH/ROS General Date of Evaluation: Sep 10, 2019 Time of Evaluation: 10:49 Anesthesiologist: Nikki ASA Score: ASA 3 Mallampati Score Class I : Soft palate, uvula, fauces, pillars visible Class II: Soft palate, uvula, fauces visible Class III: Soft palate, base of uvula visible Class IV: Only hard plate visible Mallampati Classification: Class II Surgeon: Shwetha Diagnosis: Cardiomyopathy Surgical Procedure: JOVON Anesthesia History: none Family History: no anesthesia problems Allergies: Uncoded Allergies: alcohol pads (Allergy, Unknown, Rash, 09/08/19) Medications: see eMAR Patient NPO?: Yes Past Medical History Cardiovascular: Reports: HTN, arrhythmia - Mobitz 2 Block, other - Cardomyopathy Gastrointestinal/Genitourinary: Reports: ESRD - Renal Tx Endocrine: Reports: DM Hematology/Immune: Reports: anemia, other - Thrombocytopenia PSxH Narrative: AV Shunt, Renal TX Anesthesia Pre-op Phys. Exam Physician Exam Last Vital Signs Date Time Temp Pulse Resp B/P (MAP) Pulse Ox O2 Delivery O2 Flow Rate FiO2 09/10/19 09:00 Room Air 09/10/19 08:00 98.7 77 18 130/74 (92) 96 Constitutional: NAD Neurologic: CN 2-12 intact Cardiovascular: RRR Respiratory: CTA Gastrointestinal: S/NT/ND Airway Exam Mallampati Score: Class II MO: full ROM: full Teeth: intact Anesthesia Pre-op A/P Labs Hematology Test 09/10/19 05:20 White Blood Count 6.5 K/UL (4.8-10.8) Red Blood Count 3.35 M/UL (4.20-5.40) L Hemoglobin 10.3 G/DL (12.0-16.0) L Hematocrit 29.9 % (37.0-47.0) L Mean Corpuscular Volume 89 FL (80-99) Mean Corpuscular Hemoglobin 30.7 PG (27.0-31.0) Mean Corpuscular Hemoglobin Concent 34.5 G/DL (32.0-36.0) Red Cell Distribution Width 11.7 % (11.6-14.8) Platelet Count 103 K/UL (150-450) L Mean Platelet Volume 13.6 FL (6.5-10.1) H Neutrophils (%) (Auto) 74.7 % (45.0-75.0) Lymphocytes (%) (Auto) 13.4 % (20.0-45.0) L Monocytes (%) (Auto) 8.7 % (1.0-10.0) Eosinophils (%) (Auto) 0.7 % (0.0-3.0) Basophils (%) (Auto) 2.4 % (0.0-2.0) H Chemistry Test 09/10/19 05:20 Sodium Level 141 MMOL/L (136-145) Potassium Level 3.9 MMOL/L (3.5-5.1) Chloride Level 107 MMOL/L (98-107) Carbon Dioxide Level 25 MMOL/L (21-32) Anion Gap 9 mmol/L (5-15) Blood Urea Nitrogen 11 mg/dL (7-18) Creatinine 0.7 MG/DL (0.55-1.30) Estimat Glomerular Filtration Rate > 60 mL/min (>60) Glucose Level 189 MG/DL (74-106) H Calcium Level 8.3 MG/DL (8.5-10.1) L Total Bilirubin 0.2 MG/DL (0.2-1.0) Aspartate Amino Transf (AST/SGOT) 28 U/L (15-37) Alanine Aminotransferase (ALT/SGPT) 14 U/L (12-78) Alkaline Phosphatase 199 U/L (46-116) H Total Protein 6.1 G/DL (6.4-8.2) L Albumin 2.2 G/DL (3.4-5.0) L Globulin 3.9 g/dL Albumin/Globulin Ratio 0.6 (1.0-2.7) L Risk Assessment & Plan Assessment: ASA 3 Plan: TIVA Status Change Before Surgery: Celso Cho MD Sep 10, 2019 11:29
--- NOTE | 2019-09-10 11:30 | 48 Hour Post Anesthesia Eval ---
Post Anesthesia Evaluation Procedure: JOVON Date of Evaluation: Sep 10, 2019 Time of Evaluation: 14:12 Blood Pressure Systolic: 141 0: 82 Pulse Rate: 63 Respiratory Rate: 18 Temperature (Fahrenheit): 98.6 O2 Sat by Pulse Oximetry: 100 Airway: patent Nausea: No Vomiting: No Pain Intensity: 1 Hydration Status: adequate Cardiopulmonary Status: Stable Mental Status/LOC: patient returned to baseline Follow-up Care/Observations: 0 Post-Anesthesia Complications: 0 Follow-up care needed: ready to discharge Celso Jordan MD Sep 10, 2019 11:30
--- NOTE | 2019-09-10 11:37 | Brief Operative Note ---
Immediate Post Operative Note Operative Note Pre-op Diagnosis: bacteremia Procedure: hao Post-op Diagnosis: bacteremia Post-op Diagnosis: same as pre-op Findings: other - no vegatation mild mr and tr and pulm htn full note dicated [id number] Surgeon: sdaneshrad Anesthesia: moderate sedation Specimen: none Complications: none Condition: stable Fluids: none Estimated Blood Loss: none Drains: none Implant(s) used?: No - no vegatation mild mr , tr and mod pulm htn Ashwin Tadeo MD Sep 10, 2019 11:37
--- NOTE | 2019-09-10 12:20 | NUR ---
NURSE NOTES: I received report from Leighann Salgado RN; patient back to floor after JOVON, no vegetation, mild mitral/tricuspid regurgitation and calcification/Aortic valve; Vital signs taken upon arrival to the unit, T 97.9, BP 137/83, P 77, Sat 90; patient sleepy; patient advised to use the call light to call for help; side rails up x2, breaks engaged, bed at lowest position, bed alarm on; will keep monitoring.
--- NOTE | 2019-09-10 12:56 | NUR ---
CASE MANAGEMENT:REVIEW SI;S/P JOVON TODAY. 100.4 77 26 149/88 98% 6L CA 8.3 ALK PHOS 199 IS;CEFAZOLIN IN Q8 HRS DILTIAZEM PO QD TOPROL PO QD PREDNISONE PO QD IVF NS @ 75 ML/HR PROTONIX PO QD MED SURG STATUS DCP;FROM HOME
[2019-09-10] MEDS ORDERED: PROGRAF1 MG ORAL (13:33)
[2019-09-10] MEDS ORDERED: CEPHALEXIN500 MG ORAL (13:33)
--- NOTE | 2019-09-10 13:37 | Discharge Instructions ---
Discharge Instructions Discharge Instructions Follow up with: PCP and renal transplant team within 1-2 weeks for follow up Activity: resume normal activities Follow Up Orders F/u w/PCP, renal transplant team at [facility] as o/p for follow up. For Congestive Heart Failure Reminder Report to your physician any weight gain of 5 pounds or more in one week. Zeina Erickson M.D. Sep 10, 2019 13:37
--- NOTE | 2019-09-10 13:40 | Surgery Progress Note ---
Surgery Progress Note Subjective Additional Comments no acute events comfortable stable Objective Last 24 Hour Vital Signs Date Time Temp Pulse Resp B/P (MAP) Pulse Ox O2 Delivery O2 Flow Rate FiO2 09/10/19 12:03 98.4 74 26 149/88 95 Room Air 09/10/19 11:50 76 25 138/86 98 Simple Mask 6 09/10/19 11:50 63 18 100 09/10/19 11:49 70 16 98 09/10/19 11:45 76 25 138/72 98 Simple Mask 6 09/10/19 11:41 98.9 72 22 117/78 99 Simple Mask 6 09/10/19 09:00 Room Air 09/10/19 08:00 98.7 77 18 130/74 (92) 96 09/10/19 07:00 99.3 09/10/19 06:42 99.5 09/10/19 05:30 100.4 09/10/19 04:00 98.8 73 18 133/72 (92) 95 09/10/19 00:00 98.2 69 18 111/62 (78) 94 09/09/19 21:00 Room Air 09/09/19 20:00 98.4 70 18 105/65 (78) 94 09/09/19 16:00 98.6 72 18 100/64 (76) 98 I&O Intake and Output 09/09/19 09/10/19 19:00 07:00 Intake Total 975 ml 600 ml Balance 975 ml 600 ml IV Total 975 ml 600 ml # Voids 1 Dressing: dry Wound: clean Cardiovascular: RSR Respiratory: clear Abdomen: soft, non-tender, present bowel sounds Extremities: no tenderness, no cyanosis Laboratory Tests Test 09/10/19 05:20 White Blood Count 6.5 K/UL (4.8-10.8) Red Blood Count 3.35 M/UL (4.20-5.40) L Hemoglobin 10.3 G/DL (12.0-16.0) L Hematocrit 29.9 % (37.0-47.0) L Mean Corpuscular Volume 89 FL (80-99) Mean Corpuscular Hemoglobin 30.7 PG (27.0-31.0) Mean Corpuscular Hemoglobin Concent 34.5 G/DL (32.0-36.0) Red Cell Distribution Width 11.7 % (11.6-14.8) Platelet Count 103 K/UL (150-450) L Mean Platelet Volume 13.6 FL (6.5-10.1) H Neutrophils (%) (Auto) 74.7 % (45.0-75.0) Lymphocytes (%) (Auto) 13.4 % (20.0-45.0) L Monocytes (%) (Auto) 8.7 % (1.0-10.0) Eosinophils (%) (Auto) 0.7 % (0.0-3.0) Basophils (%) (Auto) 2.4 % (0.0-2.0) H Sodium Level 141 MMOL/L (136-145) Potassium Level 3.9 MMOL/L (3.5-5.1) Chloride Level 107 MMOL/L (98-107) Carbon Dioxide Level 25 MMOL/L (21-32) Anion Gap 9 mmol/L (5-15) Blood Urea Nitrogen 11 mg/dL (7-18) Creatinine 0.7 MG/DL (0.55-1.30) Estimat Glomerular Filtration Rate > 60 mL/min (>60) Glucose Level 189 MG/DL (74-106) H Calcium Level 8.3 MG/DL (8.5-10.1) L Total Bilirubin 0.2 MG/DL (0.2-1.0) Aspartate Amino Transf (AST/SGOT) 28 U/L (15-37) Alanine Aminotransferase (ALT/SGPT) 14 U/L (12-78) Alkaline Phosphatase 199 U/L (46-116) H Total Protein 6.1 G/DL (6.4-8.2) L Albumin 2.2 G/DL (3.4-5.0) L Globulin 3.9 g/dL Albumin/Globulin Ratio 0.6 (1.0-2.7) L Plan Problems: (1) Mass of right inguinal region Assessment & Plan: 53-year-old female who has a known history of a right inguinal groin mass status post incision and drainage 3 prior times states she was told it was a cyst but it continues to recur and causes her discomfort. When she had a varicella outbreak it has been growing causing more discomfort. Wound was evaluated bedside. No acute active infectious process identified but there is a tender fluctuant 3 cm x 2 cm cyst in the right groin. Likely had I& D prior but not cyst excision. I had a long discussion with the patient regards to these findings and the care plan. Currently given her condition and state no plan for incision and drainage or excision of cyst and hole unless acute actively infected. Currently does not seem infected. Will monitor closely and if infected will consider intervention. Otherwise we will plan to follow patient patient for excision at a later time. Thank you for let me participate patient's care will follow with recommendations Jose Raul Reis Sep 10, 2019 13:40
--- NOTE | 2019-09-10 13:59 | Discharge Summary ---
Discharge Summary Hospital Course Date of Admission Aug 24, 2019 at 15:45 Date of Discharge Admitting Diagnosis varicella reaction renal transplant/hyperglycemia [facility] Cher Mora is a 53 year old female who was admitted on Aug 24, 2019 at 15:45 for Varicella Reaction Renal Transplant/Hyperglycemia Hospital Course 53-year-old AAF with PMH of renal transplant 5 years ago, DM type II, who presented to the ED for rash Pt believes this developed as a side effect after recieving the MMR vaccine in late June. On admission patient was found to be in Mobitz type II, multiple EKGs were done which showed resolution, on admission U tox positive for marijuana and cocaine. Cardiology consulted who stated no PPM at this time. On admission patient noted with multiple rashes on face and extremities. Rashes were concerning for disseminated varicella. ID consulted, patient started on acyclovir, airborne precautions, ophthalmology consulted which stated no varicella in eyes, patient noted with acute bacterial conjunctivitis and was given moxifloxacin. Patient's rash is improved with acyclovir which was switched to p.o. Patient noted to be septic with MSSA bacteremia. Patient was started on cefazolin with follow-up blood cultures were negative on 09/01. Patient underwent TTE which was nondiagnostic, JOVON on revealed no vegetations. Discussed with ID, patient to be DC'd on Keflex 500 p.o. 4 times daily for 2 weeks. During hospital stay patient noted right groin cyst, general surgery was consulted who stated to follow-up as outpatient. Of note patient is a renal transplant patient, no acute issues during hospital stay, patient to follow-up with renal transplant team at [facility] as outpatient. #Disseminated varicella #Sepsis, MSSA bacteremia #Mobitz Type II - resolved #Acute bacterial conjunctivitis, right eye - improved #right groin cyst #h/o renal transplant #Hypokalemia - resolved #H/o medical non-compliance #Irrational behavior #Diabetes type 2 #Hyperglycemia #Hypomagnesemia D/c planning >30 mins. Discharge Medications New Medications: Cephalexin* (Keflex*) 500 Mg Capsule 500 MG ORAL EVERY 6 HOURS for 14 Days, #60 CAP Tacrolimus (Prograf) 1 Mg Capsule 1 MG ORAL EVERY 12 HOURS for 30 Days, #60 CAP 1 Refill Continued Medications: Diltiazem Hcl* (Cardizem*) 60 Mg Tablet 180 MG ORAL DAILY, TAB Mycophenolate Mofetil (Cellcept) 250 Mg Capsule 1000 MG ORAL EVERY 12 HOURS for IMMUNOSUPPRESSANT, CAP Prednisone (Prednisone) 5 Mg Tablet 5 MG PO QD for ANTI-INFLAMMATORY, TAB Discontinued Medications: Acetaminophen (Tylenol) 325 Mg Tablet 650 MG ORAL Q6H PRN for Prn Pain/Headache/Temp > 101, #20 TAB 0 Refills Bacitracin (Bacitracin) 28.4 Gm Oint...g. 1 APPLIC TOPIC BID, #20 GM Diphenhydramine Hcl* (Benadryl*) 25 Mg Capsule 25 MG ORAL Q6H PRN for Itching, CAP Discharge Condition Upon Discharge: stable Discharge Vital Signs Last Vital Signs Date Time Temp Pulse Resp B/P (MAP) Pulse Ox O2 Delivery O2 Flow Rate FiO2 09/10/19 12:03 98.4 74 26 149/88 95 Room Air 09/10/19 11:50 6 Discharge Disposition Patient was discharged to home. OK to return to work on 09/16/19. Pt to f/u w/PCP , renal transplant team at [facility], general surgery of your choice for right groin cyst. Discharge Instructions Discharge Instructions Follow up with: PCP and renal transplant team within 1-2 weeks for follow up Activity: resume normal activities Zeina Erickson M.D. Sep 10, 2019 13:59
--- NOTE | 2019-09-10 15:30 | NUR ---
NURSE NOTES: Patient discharged to Home; left the floor ambulating, accompanied by primary nurse; IV access and name tag removed; printed material given; patient teaching given at the bed side regarding medications, side effect and when to seek for medical help; belonging list signed by patient and primary nurse; patient was stable upon discharge.
--- NOTE | 2019-09-10 23:15 | Progress Note ---
DATE: 09/10/2019 SUBJECTIVE: The patient is in bed, depressed, withdrawn. Low energy. She is stable at baseline. No behavior issues noted. Able to be engaged and answers questions. MENTAL STATUS EXAMINATION: The patient is alert, oriented times self, place, situation. Mood is neutral. Affect is flat. Thought process is concrete. Thought content, no suicidal or homicidal ideation. ASSESSMENT: Stable. PLAN: 1. We will continue current medications. 2. Provide the patient with reality orientation and supportive therapy. Hilaria Meza M.D. DR: MANE JOB#: [id number] CC:
--- NOTE | 2019-09-11 13:52 | NUR ---
*-* INSURANCE *-* DISCHARGE SUMMARY HAS BEEN FAXED TO: [facility] P: [phone] F: [phone] & [facility] AUTH# [id number] FAX ALL CLINICALS TO [phone]
--- NOTE | 2019-09-14 07:59 | Coder Physician Query ---
Clarification is required for compliance, coding accuracy, and to reflect severity of illness for this patient Dear Dr. Erickson Date: 09/14/19 [employer] Consultant/CDS Name: Fredy, ROCIO Exercise your independent professional judgment when responding to query. Question asked do not imply a particular answer is desired/expected Admit Date: 08/24/19 Discharge Date: 09/10/19 Sepsis noted on progress notes starting on 08/30/19: #Sepsis, GPC bacteremia -continue vancomycin and monitor levels Blood culture positive on 08/27, 08/29 - Staphylococcus species WBC 08/23 3.5 L, 08/24 3.7 L, 08/25 4.1 L Patient noted to be septic with MSSA bacteremia. Patient was started on cefazolin with follow-up blood cultures were negative on 09/01 Discharge DX: #Disseminated varicella #Sepsis, MSSA bacteremia #Mobitz Type II - resolved #Acute bacterial conjunctivitis, right eye - improved #right groin cyst #h/o renal transplant Was SEPSIS present on admission? [ ] Yes [ ] No [ ] Clinically undeterminable Zeina Erickson M.D. Date Please also document in your Progress Notes and/or Discharge Summary and indicate if the condition was present on admission. [place]
== END 2019-09-10 15:20 | disposition home or self-care (01) | DRG 723 ==
LOC: EMR 14:22 → 2E 15:45 → EDBEDREQ 16:05 → 2E 08-25 11:14 → 4E 08-31 08:39
PROC: B24BZZ4 Ultrasonography of Heart with Aorta, Transesophageal (ICD-10-PCS; principal; 2019-09-10 11:14)
DX: B01.9 Varicella without complication (principal); A41.01 Sepsis due to Methicillin susceptible Staphylococcus aureus; Z94.0 Kidney transplant status; I44.1 Atrioventricular block, second degree; D69.6 Thrombocytopenia, unspecified; E86.0 Dehydration; E04.9 Nontoxic goiter, unspecified; F14.10 Cocaine abuse, uncomplicated; E11.65 Type 2 diabetes mellitus with hyperglycemia; H10.31 Unspecified acute conjunctivitis, right eye; Z79.4 Long term (current) use of insulin; E83.42 Hypomagnesemia; F41.9 Anxiety disorder, unspecified; Z91.14 Patient's other noncompliance with medication regimen; E87.6 Hypokalemia; R22.2 Localized swelling, mass and lump, trunk
CPT/HCPCS: 36415; 71045; 80048; 80053; 80061; 80197; 80202; 80307; 81003; 82550; 82962; 83036; 83605; 83735; 83880; 84100; 84443; 84484; 85007; 85025; 85610; 85730; 86703; 86710; 86765; 86787; 87040; 87181; 93005; 93306; 93312; 94003; 94150; 96361; 96365; 99291; J1815; J3490; J7030; J8499; S5561